=== PATIENT | female | born 1990 | race Caucasian/White ===

== ENCOUNTER 2023-03-24 07:33 | Emergency (ER) | payer OTHER, SELFPAY ==
[2023-03-24 07:39] VITALS: BP 110/82; PULSE 89; RESP 18; TEMP 36.7; O2SAT 97; BMI 29.5
--- NOTE | 2023-03-24 07:50 | ED.URI1 ---
HPI - URI/Sore Throat General Chief Complaint: Upper Respiratory Infection Time Seen by Provider: 03/24/23 07:38 Source: patient History of Present Illness HPI Narrative: 33-year-old female presents to the emergency department for an eight day history of cough. She is coughing up thick green phlegm and she lost her voice. No fever. She took a Covid test at work and it was negative. No hemoptysis or vomiting. Related Data Home Medications Medication Instructions Recorded Confirmed famotidine 20 mg tablet 20 mg PO DAILY 03/24/23 03/24/23 hydrochlorothiazide 12.5 mg tablet 12.5 mg PO Q12H 03/24/23 03/24/23 venlafaxine 75 mg capsule,extended 75 mg PO DAILY 03/24/23 03/24/23 release 24 hr zolpidem 10 mg tablet 10 mg PO DAILY 03/24/23 03/24/23 Previous Rx's Medication Instructions Recorded azithromycin 250 mg tablet See Rx Instructions PO .COMPLEX #6 03/24/23 (Zithromax Z-Iron) tabs benzonatate 100 mg capsule 100 mg PO TID PRN cough #20 caps 03/24/23 Allergies Allergy/AdvReac Type Severity Reaction Status Date / Time amoxicillin AdvReac Intermediate Verified 03/24/23 07:39 midazolam [From Versed] AdvReac Intermediate Verified 03/24/23 07:39 Review of Systems ROS Narrative A ten point review of systems is negative except as noted above. PFSH PFSH Social History Smoking status: Never smoker Exam Narrative Exam Narrative: Nurses note and vital signs reviewed and patient is not hypoxic. General: The patient appears in no apparent distress. Patient is resting comfortably on cart. her voice is hoarse. Skin: Warm, dry, no pallor noted. There is no rash noted. Head: Normocephalic, atraumatic Eye: Normal conjunctiva, no drainage Ears, Nose, Mouth, and Throat: oral mucosa is moist. Nares patent. Cardiovascular: Regular Rate and Rhythm Respiratory: Patient is in no distress, no accessory muscle use, lungs are clear to auscultation, no wheezing, rales or rhonchi Back: non-tender, no CVA tenderness bilaterally to percussion. GI: nontender Musculoskeletal: The patient has no evidence of calf tenderness, no pitting edema, symmetrical pulses noted bilaterally Neurological: A&O, normal speech Psychiatric: Cooperative Constitutional Vital Signs, click to edit/add: Last Vital Signs Temp 98.0 F 03/24/23 07:39 Pulse 89 03/24/23 07:39 Resp 18 03/24/23 07:39 BP 110/82 03/24/23 07:39 Pulse Ox 97 03/24/23 07:39 Course Vital Signs Vital signs: Vital Signs Temperature 98.0 F 03/24/23 07:39 Pulse Rate 89 03/24/23 07:39 Respiratory Rate 18 03/24/23 07:39 Blood Pressure 110/82 03/24/23 07:39 Pulse Oximetry 97 03/24/23 07:39 Temperature 98.0 F 03/24/23 07:39 Pulse Rate 89 03/24/23 07:39 Respiratory Rate 18 03/24/23 07:39 Blood Pressure 110/82 03/24/23 07:39 Pulse Oximetry 97 03/24/23 07:39 MDM - URI/Sore Throat MDM Narrative Medical decision making narrative: I do not clinically suspect pneumonia or Covid. She was offered a Covid test but had one at work and it was negative. Treatment diagnosis and follow-up were discussed with the patient. Differential Diagnosis Differential diagnosis: Likely upper respiratory infection, viral infection and other (Covid, pneumonia) Discharge Plan Discharge Chief Complaint: Upper Respiratory Infection Clinical Impression: Upper respiratory infection Patient Disposition: Home, Self-Care Time of Disposition Decision: 07:49 Condition: Good Mode of Transportation: Private Vehicle Prescriptions / Home Meds: New azithromycin [Zithromax Z-Iron] 250 mg tablet See Rx Instructions .ROUTE .COMPLEX Qty: 6 0RF Rx Instructions: For 250 mg dose pack: take 500 mg today (day 1), then 250 mg for 4 days (days 2-5) benzonatate 100 mg capsule 100 mg PO TID PRN (Reason: cough) Qty: 20 0RF No Action famotidine 20 mg tablet 20 mg PO DAILY hydrochlorothiazide 12.5 mg tablet 12.5 mg PO Q12H venlafaxine 75 mg capsule,extended release 24hr 75 mg PO DAILY zolpidem 10 mg tablet 10 mg PO DAILY Instructions: Upper Respiratory Infection (ED) Stand Alone Forms: Portal Instructions Referrals: YUDITH COULTER [Primary Care Provider] - 1 week
== END 2023-03-24 07:58 | disposition home or self-care (01) ==
PROVIDERS: Emergency Provider Emergency Medicine; PCP Nurse Practitioner
DX: J06.9 Acute upper respiratory infection, unspecified (principal); Z79.899 Other long term (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 therapy
CPT/HCPCS: 99283

== ENCOUNTER 2023-06-08 07:26 | Emergency (ER) | payer OTHER, SELFPAY ==
[2023-06-08 07:29] VITALS: BP 140/90; PULSE 104; RESP 20; TEMP 37.1; O2SAT 97
[2023-06-08 07:44] VITALS: PULSE 98; RESP 18; O2SAT 98
[2023-06-08 07:48] LABS: Internal Control Within Normal Limits; Strep A Antigen Screen Negative
--- NOTE | 2023-06-08 08:28 | ED.GENADUL1 ---
HPI - General Adult General Chief complaint: Upper Respiratory Infection Stated complaint: COUGH/ CONGESTION Time Seen by Provider: 06/08/23 08:00 History of Present Illness HPI narrative: Patient is a 33-year-old female who is presenting to the Emergency Room today with chief complaint of cough, congestion that started yesterday and today. Patient works at the [employer]. There has been COVID at the [facility]. Patient states she's been having coughing, congestion, and a clear/greenish cough since yesterday. Patient was having flulike symptoms Wednesday, felt better Wednesday and Wednesday, that was sick again yesterday. Patient did have COVID at the beginning of May. Patient did test negative for COVID a few weeks ago. Patient needs a work note as well. No nausea or vomiting. No diarrhea. No rash. Patient's having upper chest wall pain from coughing. Mild sore throat. No headache, no ear pain, no other acute complaints. . All systems are negative except as noted/marked. All systems reviewed and otherwise negative. . Nurses note and vital signs reviewed and patient is not hypoxic. General: The patient appears well and in no apparent distress. Patient is resting comfortably on cart. Patient is not toxic, lethargic, or listless Skin: Warm, dry, no pallor noted. There is no rash noted. No petechiae, purpura. Head: Normocephalic, atraumatic; No tenderness to palpation to bilateral frontal or maxillary sinuses. Eye: Normal conjunctiva, no drainage, EOMI. PERRL Ears, Nose, Mouth, and Throat: oral mucosa is moist. Nares patent. Mouth without vesicles. Patient bilateral tympanic membrane shows mild cerumen impaction bilateral, record and left. Patient is clear drainage noted to the posterior pharynx, no bilateral or unilateral swelling, no posterior pharyngeal erythema, exudate, or petechiae. Airways patent. Cardiovascular: Regular Rate and Rhythm, no murmur, gallop, rub Respiratory: Patient is in no distress, no accessory muscle use, lungs are clear to auscultation, no wheezing, rales or rhonchi Back: non-tender, no CVA tenderness bilaterally to percussion. No CT LS midline pain GI: soft, no tenderness Musculoskeletal: Patient has full range of motion of all of the extremities, no motor, sensory, or focal neurological deficits Neurological: A&O x3, normal speech Psychiatric: Cooperative Related Data Home Medications Medication Instructions Recorded Confirmed famotidine 20 mg tablet 20 mg PO DAILY 03/24/23 06/08/23 hydrochlorothiazide 12.5 mg tablet 12.5 mg PO Q12H 03/24/23 06/08/23 venlafaxine 75 mg capsule,extended 75 mg PO DAILY 03/24/23 06/08/23 release 24 hr zolpidem 10 mg tablet 10 mg PO DAILY 03/24/23 06/08/23 cetirizine 10 mg tablet 10 mg PO DAILY 06/08/23 06/08/23 cholecalciferol (vitamin D3) 125 125 mcg PO DAILY 06/08/23 06/08/23 mcg (5,000 unit) capsule pantoprazole 40 mg tablet,delayed 40 mg PO DAILY 06/08/23 06/08/23 release quetiapine 50 mg tablet 75 mg PO DAILY 06/08/23 06/08/23 Previous Rx's Medication Instructions Recorded albuterol sulfate 90 mcg/actuation 2 inh inhalation Q4H PRN shortness 06/08/23 breath activated powder of breath or wheezing #1 ea inhaler,sensor benzonatate 100 mg capsule 200 mg (2 x 100 mg) PO TID PRN 06/08/23 cough #20 caps [id number] 10 ml PO Q6H PRN cold symptoms 06/08/23 2 mg-30 mg-10 mg/5 mL oral syrup #200 mL (Bromfed DM) Allergies Allergy/AdvReac Type Severity Reaction Status Date / Time amoxicillin AdvReac Intermediate Verified 03/24/23 07:39 midazolam [From Versed] AdvReac Intermediate Verified 03/24/23 07:39 PFSH PFSH Social History Smoking status: Never smoker Exam Constitutional Vital Signs, click to edit/add: Last Vital Signs Temp 98.7 F 06/08/23 07:29 Pulse 98 H 06/08/23 07:44 Resp 18 06/08/23 07:44 BP 140/90 06/08/23 07:29 Pulse Ox 98 06/08/23 07:44 O2 Del Method Room Air 06/08/23 07:29 Course Vital Signs Vital signs: Vital Signs Temperature 98.7 F 06/08/23 07:29 Pulse Rate 104 H 06/08/23 07:29 Respiratory Rate 20 06/08/23 07:29 Blood Pressure 140/90 06/08/23 07:29 Pulse Oximetry 97 06/08/23 07:29 Oxygen Delivery Method Room Air 06/08/23 07:29 Temperature 98.7 F 06/08/23 07:29 Pulse Rate 98 H 06/08/23 07:44 Respiratory Rate 18 06/08/23 07:44 Blood Pressure 140/90 06/08/23 07:29 Pulse Oximetry 98 06/08/23 07:44 Oxygen Delivery Method Room Air 06/08/23 07:29 Medical Decision Making MDM Narrative Medical decision making narrative: Patient's rapid strep is negative. Patient was educated on continuing to do DayQuil [id number] along with adding Flonase, NyQuil, Tylenol, Motrin, Mucinex DM. Patient will follow-up with PCP. No questions at discharge. Lab Data Labs: Lab Results 06/08/23 Range/Units 07:33 Streptococcus Screen Negative Discharge Plan Discharge Chief Complaint: Upper Respiratory Infection Clinical Impression: Upper respiratory infection, Pharyngitis, Bronchitis Patient Disposition: Home, Self-Care Condition: Fair Prescriptions / Home Meds: New benzonatate 100 mg capsule 200 mg PO TID PRN (Reason: cough) Qty: 20 0RF [id number] [Bromfed DM] 2-30-10 mg/5 mL syrup 10 ml PO Q6H PRN (Reason: cold symptoms) Qty: 200 0RF albuterol sulfate 90 mcg/actuation aero powdr breath act w/sensor 2 inh inhalation Q4H PRN (Reason: shortness of breath or wheezing) Qty: 1 0RF No Action famotidine 20 mg tablet 20 mg PO DAILY hydrochlorothiazide 12.5 mg tablet 12.5 mg PO Q12H venlafaxine 75 mg capsule,extended release 24hr 75 mg PO DAILY zolpidem 10 mg tablet 10 mg PO DAILY cetirizine 10 mg tablet 10 mg PO DAILY cholecalciferol (vitamin D3) 125 mcg (5,000 unit) capsule 125 mcg PO DAILY pantoprazole 40 mg tablet,delayed release (DR/EC) 40 mg PO DAILY quetiapine 50 mg tablet 75 mg PO DAILY Instructions: Pharyngitis (ED), Upper Respiratory Infection (ED), Acute Bronchitis (ED) Additional Instructions: Continue using DayQuil daily.\ Start using NyQuil and Flonase as discussed. Alternate Tylenol and Motrin every 4 hours for chest wall pain, joint pain, muscle pain. Use cough medicattion as needed that is prescribed. Use inhaler every 4 hours to help with cough, congestion, and if you are coughing more productive sputum that is getting, the inhaler is working. Stand Alone Forms: Work/School Release, Portal Instructions Referrals: YUDITH COULTER [Primary Care Provider] - 1 week
== END 2023-06-08 08:31 | disposition home or self-care (01) ==
PROVIDERS: Emergency Provider Emergency Medicine; PCP Nurse Practitioner
DX: J40 Bronchitis, not specified as acute or chronic (principal); J02.9 Acute pharyngitis, unspecified; J06.9 Acute upper respiratory infection, unspecified; Z86.16 Personal history of COVID-19; Z79.899 Other long term (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 therapy
CPT/HCPCS: 87070; 87880; 99283

== ENCOUNTER 2023-10-06 09:35 | Emergency (ER) | payer OTHER, SELFPAY ==
[2023-10-06 09:38] VITALS: BP 134/97; PULSE 107; TEMP 36.9; O2SAT 94
--- OUTSIDE RECORDS SUMMARY | 2023-10-06 09:51 | XMS_ITS | CCD ---
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 Name Role Phone YFN, YUDITH Primary Care Unavailable CHARLES, HANK Admitting Unavailable CHARLES, HANK Attending Unavailable TANIA AUGUSTE Consulting Unavailable CHARLES, HANK Consulting Unavailable TOLBERT, YUDITH Primary Care Unavailable CHARLES, HANK Admitting Unavailable CHARLES, HANK Attending Unavailable EMANUEL, DR NOLVIA Preston Consulting Unavailable CLIFTON, KAITLYNN RUBIO Consulting Unavailable VICKY DURBIN Consulting Unavailable TOLBERT, YUDITH Primary Care Unavailable MARKER, DR TAVARES Admitting Unavailable MARKER, DR TAVARES Attending Unavailable JOSH, DR AGUIRRE Consulting Unavailable TOLBERT, YUDITH Admitting Unavailable TOLBERT, YUDITH Attending Unavailable TOLBERT, YUDITH Primary Care Unavailable TOLBERT, YUDITH Consulting Unavailable TOLBERT, YUDITH Admitting Unavailable TOLBERT, YUDITH Attending Unavailable TOLBERT, YUDITH Primary Care Unavailable TOLBERT, YUDITH Consulting Unavailable TOLBERT, YUDITH Primary Care Unavailable Ernestina Berger Attending Unavailable Tolbert JET SKI MECHANIC-ROPEMAN, Yudith J Primary Care Provid er YUDITH TOLBERT Attending Unavailable TOLBERT, YUDITH J Referring Unavailable TOLBERT, YUDITH J Primary Care Unavailable TOLBERT, YUDITH J Attending Unavailable TOLBERT, YUDITH J Referring Unavailable TOLBERT, YUDITH J Primary Care Unavailable PEYMAN ROBERTS Attending Unavailable TOLBERTTIFFANYYUDITH Raheel Referring Unavailable TOLBERT, YUDITH J Primary Care Unavailable PEYMAN ROBERTS Referring Unavailable TOLBERT, YUDITH J Primary Care Unavailable Allergies Allergy Classification Reported Allergen(s) Allergy Type Date of Onset Reaction(s) Facility (4 sources) Amoxicillin; Translations: [amoxicillin] Drug Allergy 4 The [facility] (2 sources) Midazolam; Translations: [Versed] Drug Allergy 7 The [facility] (1 source) Amoxicillin Drug Allergy 7 [facility] ([facility] Midazolam; Translations: [MIDAZOLAM] Drug Allergy 9 Other (See Comments), Nausea And Vomiting [facility] Medications Current Medications Medication Drug Class(es) Dates Sig (Normalized) Sig (Original) acyclovir 0.05 mg/mg topical ointment (1 source) Herpesvirus Nucleoside Analog DNA Polymerase Inhibitor, Herpes Simplex Virus Nucleoside Analog DNA Polymerase Inhibitor, Herpes Zoster Virus Nucleoside Analog DNA Polymerase Inhibitor Start: 04-11-20 19 acyclovir (ZOVIRAX) 5 % ointment Indications: Cold sore Apply 1 application topically 4 (four) times a day as needed (kaur sore). 5 g 0 04/11/2019 Active [id number] actuat albuterol 0.09 mg/actuat metered dose inhaler (1 source) beta2-Adrenergic Agonist Start: 06-08-19 24 take 2 puff(s) by inhalation every four hours as needed albuterol (PROVENTIL HFA;VENTOLIN HFA) 90 mcg/actuation inhaler INHALE 2 PUFFS EVERY 4 HOURS NEEDED FOR SHORTNESS OF BREATH OR FOR WHEEZE 0 06/08/2023 Active calcium carbonate 675 mg / magnesium hydroxide 135 mg / simethicone 60 mg chewable tablet (1 source) Start: 02-20-20 21 calcium carb-mag hydrox-simeth 675-135-60 mg tablet,chewable Indications: Hiatal hernia , GERD without esophagitis Chew 1 tablet and swallow every 6 (six) hours as needed (Indigestion). 30 each 3 02/19/2021 Active chlorhexidine gluconate 1.2 mg/ml mouthwash (1 source) Start: 09-24-19 22 take 15 mL by mouth in the morning chlorhexidine (PERIDEX) 0.12 % solution Indications: Gingivitis Apply 15 mL to the mouth or throat in the morning and 15 mL before bedtime. 120 mL 6 09/23/2021 Active cholecalciferol 0.125 mg oral capsule (1 source) Vitamin D Start: 06-01-20 23 take 1 capsule by mouth once in the morning cholecalciferol, vitamin D3, (VITAMIN D3) 5,000 units capsule Indications: Vitamin D deficiency Take 1 capsule (5,000 Units total) by mouth in the morning. 30 capsule 6 06/01/2023 Active diphenhydrAMINE hydrochloride 25 mg oral capsule (1 source) Histamine-1 Receptor Antagonist Start: 09-11-19 20 take 1 capsule by mouth three times daily as needed Allergy, diphenhydrAMINE, 25 mg capsule Indications: Seasonal allergic rhinitis due to pollen Take 1 capsule (25 mg total) by mouth 3 (three) times a day as needed for allergies. 90 capsule 2 09/11/2019 Active famotidine 20 mg oral tablet (2 sources) Histamine-2 Receptor Antagonist Start: 06-01-20 23 End: 09-09-19 24 take 1 tablet by mouth in the morning, then take 1 tablet by mouth at bedtime famotidine (PEPCID) 20 mg tablet Indications: Hiatal hernia Take 1 tablet (20 mg total) by mouth in the morning and 1 tablet (20 mg total) before bedtime. 60 tablet 5 09/09/2023 Active fexofenadine hydrochloride 180 mg oral tablet (1 source) Histamine-1 Receptor Antagonist Start: 09-09-19 take 1 tablet by mouth in the morning fexofenadine (ASIA ALLERGY) 180 mg tablet Indications: Seasonal allergic rhinitis due to pollen Take 1 tablet (180 mg total) by mouth in the morning. 30 tablet 3 09/09/2023 Active fluticasone propionate 0.05 mg/actuat metered dose nasal spray (1 source) Corticosteroid Start: 09-09-19 take 2 spray(s) nasal route in the morning fluticasone propionate (FLONASE) 50 mcg/actuation nasal spray Indications: Seasonal allergic rhinitis due to pollen Administer 2 sprays into each nostril in the morning. 16 g 3 09/09/2023 Active hydroCHLOROthiazide 12.5 mg oral tablet (1 source) Thiazide Diuretic Start: 06-01-20 23 take 1 tablet by mouth once daily as needed hydroCHLOROthiazide (HYDRODIURIL) 12.5 mg tablet Indications: Localized swelling of both lower legs TAKE 1 TABLET BY MOUTH EVERYDAY NEEDED FOR LEG SWELLING 30 tablet 5 06/01/2023 Active LORazepam 1 mg oral tablet (2 sources) Benzodiazepine Start: 06-01-20 23 End: 09-09-19 24 take 1 tablet by mouth twice daily as needed for anxiety LORazepam (ATIVAN) 1 mg tablet Indications: Generalized anxiety disorder with panic attacks TAKE 1 TABLET BY MOUTH TWICE A DAY NEEDED FOR ANXIETY 30 tablet 2 09/09/2023 Active pantoprazole 40 mg delayed release oral tablet (2 sources) Proton Pump Inhibitor Start: 06-01-20 End: 09-09-19 take 1 tablet by mouth once daily before breakfast pantoprazole (PROTONIX) 40 mg EC tablet Indications: Hiatal hernia TAKE 1 TABLET BY MOUTH EVERY DAY IN THE MORNING BEFORE BREAKFAST 30 tablet 5 09/09/2023 Active QUEtiapine 25 mg oral tablet (4 sources) Atypical Antipsychotic Start: 06-01-20 End: 09-09-19 take 1 tablet by mouth once daily QUEtiapine (SeroqueL) 25 mg tablet Indications: Generalized anxiety disorder with panic attacks Take 1 tablet (25 mg total) by mouth nightly. Take with 50 mg tab ( total 75mg) 30 tablet 5 09/09/2023 Active Start: 06-01-2023 End: 09-09-2023 take 1 tablet by mouth once daily QUEtiapine (SeroqueL) 50 mg tablet Indications: Generalized anxiety disorder with panic attacks Take 1 tablet (50 mg total) by mouth nightly. To be taken with 25 mg nightly 30 tablet 5 09/09/2023 Active 24 hr venlafaxine 150 mg extended release oral capsule (2 sources) Serotonin and Norepinephrine Reuptake Inhibitor Start: 09-09-2023 take 1 capsule by mouth every twenty-four hours in the morning venlafaxine XR (EFFEXOR-XR) 150 mg 24 hr capsule Indications: Major depression single episode, in partial remission (CMS-HCC) Take 1 capsule (150 mg total) by mouth in the morning. TAKE 1 CAPSULE (75 MG TOTAL) BY MOUTH IN THE MORNING. 30 capsule 3 09/09/2023 Active Start: 06-01-2023 End: 09-09-2023 take 1 capsule by mouth every twenty-four hours in the morning, then take 1 capsule by mouth in the morning venlafaxine XR (EFFEXOR XR) 75 mg 24 hr capsule Indications: Depression, major, in remission (CMS-HCC) Take 1 capsule (75 mg total) by mouth in the morning. TAKE 1 CAPSULE (75 MG TOTAL) BY MOUTH IN THE MORNING. 30 capsule 5 06/01/2023 09/09/2023 Discontinued (Reorder) zolpidem tartrate 10 mg oral tablet (2 sources) gamma-Aminobutyric Acid-ergic Agonist Start: 06-01-2023 End: 09-09-2023 take 1 tablet by mouth once daily as needed for sleep zolpidem (AMBIEN) 10 mg tablet Indications: Psychophysiological insomnia Take 1 tablet (10 mg total) by mouth nightly as needed for sleep. 30 tablet 2 09/09/2023 Active Completed/Discontinued Medications Medication Drug Class(es) Dates Sig (Normalized) Sig (Original) azelastine hydrochloride 0.137 mg/actuat metered dose nasal spray (1 source) Histamine-1 Receptor Antagonist Start: 07-13-2022 End: 09-09-2023 take 2 spray(s) nasal route in the morning azelastine (ASTELIN) 137 mcg (0.1 %) nasal spray Indications: Seasonal allergic rhinitis due to pollen ADMINISTER 2 SPRAYS INTO EACH NOSTRIL IN THE MORNING AND 2 SPRAYS BEFORE BEDTIME. 30 mL 11 07/13/2022 09/09/2023 Discontinued (Therapy completed) cetirizine hydrochloride 10 mg oral tablet (1 source) Histamine-1 Receptor Antagonist Start: 06-01-2023 End: 09-09-2023 take 1 tablet by mouth once daily in the morning cetirizine (ZyrTEC) 10 mg tablet Indications: Seasonal allergic rhinitis due to pollen TAKE 1 TABLET BY MOUTH EVERY DAY IN THE MORNING 30 tablet 6 06/01/2023 09/09/2023 Discontinued (Therapy completed) dicyclomine hydrochloride 10 mg oral capsule (1 source) Anticholinergic Start: 04-16-2021 End: 09-09-2023 dicyclomine (BENTYL) 10 mg capsule Take 1 capsule (10 mg total) by mouth in the morning and 1 capsule (10 mg total) at noon and 1 capsule (10 mg total) in the evening and 1 capsule (10 mg total) before bedtime. 0 04/16/2021 09/09/2023 Discontinued (Therapy completed) Problems Active Problems Problem Classification Problem Date Documented Date Episodic/Chronic Anxiety disorders (4 sources) Generalized anxiety disorder; Translations: [Generalized anxiety disorder] Onset: 01-27-2017 09-09-2023 Chronic Disorders of teeth and jaw (1 source) Gingivitis; Translations: [Chronic gingivitis, plaque induced] Onset: 06-29-2018 06-29-2018 Chronic Endometriosis (1 source) Endometriosis (clinical); Translations: [Endometriosis, unspecified] Onset: 01-27-2017 01-27-2017 Chronic Esophageal disorders (2 sources) Gastroesophageal reflux disease without esophagitis; Translations: [Gastro-esophageal reflux disease without esophagitis] Onset: 03-02-2019 03-02-2019 Chronic Gastritis and duodenitis (1 source) Chronic gastritis; Translations: [Unspecified chronic gastritis without bleeding] Onset: 04-21-2022 04-21-2022 Chronic Hepatitis (1 source) Nonalcoholic steatohepatitis (PENALOZA); Translations: [NONALCOHOLIC STEATOHEPATITIS] Onset: 04-13-2022 Chronic Miscellaneous mental health disorders (3 sources) Psychophysiologic insomnia; Translations: [Psychophysiologic insomnia] Onset: 03-27-2018 09-09-2023 Chronic Mood disorders (2 sources) Major depression single episode, in partial remission; Translations: [Major depressive disorder, single episode, in partial remission] Onset: 06-01-2023 09-09-2023 Chronic Nausea and vomiting (1 source) Nausea with vomiting, unspecified; Translations: [NAUSEA WITH VOMITING UNSPECIFIED] Onset: 04-13-2022 Episodic Nutritional deficiencies (1 source) Vitamin D deficiency, unspecified; Translations: [Vitamin D deficiency, unspecified] Onset: 06-01-2023 Chronic Other aftercare (1 source) Other termite inspector (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 therapy; Translations: [OTH FPC CURRENT DRUG THERAPY] Onset: 04-13-2022 Episodic Other aftercare (1 source) Drug therapy finding; Translations: [termite inspector (current) use of opiate analgesic] 09-09-2023 Episodic Other hereditary and degenerative nervous system conditions (1 source) Restless legs; Translations: [Restless legs syndrome] Onset: 04-11-2019 04-11-2019 Chronic Other non-traumatic joint disorders (2 sources) Pain in right knee; Translations: [Pain in right knee] Onset: 09-22-2023 Episodic Other non-traumatic joint disorders (1 source) Knee pain Onset: 09-22-2023 Episodic Other upper respiratory disease (2 sources) Allergic rhinitis due to pollen; Translations: [Allergic rhinitis due to pollen] Onset: 03-02-2019 09-09-2023 Chronic Other upper respiratory disease (1 source) Allergic rhinitis due to pollen; Translations: [Allergic rhinitis due to pollen] Onset: 03-02-2019 Chronic Other upper respiratory infections (9 sources) Acute pharyngitis, unspecified; Translations: [Acute upper respiratory infection, unspecified] Onset: 05-21-2021 Episodic Residual codes; unclassified (1 source) Acquired absence of other specified parts of digestive tract; Translations: [ACQ ABSENCE OTH PART DIGESTV TRACT] Onset: 04-13-2022 Episodic Residual codes; unclassified (1 source) Acquired absence of both cervix and uterus; Translations: [ACQUIRED ABSENCE BOTH CERVIX AND UTERUS] Onset: 04-13-2022 Episodic Unclassified (3 sources) CONTACT W/AND (SUSP) EXPOS COVID-19; Translations: [CONTACT W/AND (SUSP) EXPOS COVID-19] Onset: 06-27-2021 Unclassified (1 source) Annual Exam Onset: 06-01-2023 Viral infection (1 source) Viral infection, unspecified; Translations: [VIRAL INFECTION UNSPECIFIED] Onset: 04-13-2022 Episodic Viral infection (1 source) COVID-19; Translations: [COVID-19] Onset: 06-27-2021 Past or Other Problems Problem Classification Problem Date Documented Da te Episodic/Chronic Abdominal hernia (2 sources) Hiatal hernia; Translations: [Diaphragmatic hernia without obstruction or gangrene] Onset: 06-01-2023 09-09-2023 Episodic Administrative/social admission (1 source) Encounter for other administrative examinations; Translations: [ENCOUNTER OTH ADMIN EXAMINATIONS] Onset: 12-16-2021 Episodic Chronic obstructive pulmonary disease and bronchiectasis (1 source) Bronchitis, not specified as acute or chronic; Translations: [BRONCHITIS NOT SPEC ACUTE/CHRON] Onset: 05-22-2021 Episodic E Codes: Natural/environment (1 source) Overexertion from strenuous movement or load, initial encounter; Translations: [OVEREXERT STRENUOUS MVMT/LOAD INIT] Onset: 05-06-2021 Episodic Esophageal disorders (1 source) Lesion of esophagus; Translations: [Disease of esophagus, unspecified] Onset: 04-21-2022 04-21-2022 Episodic Mood disorders (1 source) Mood disorders Onset: 09-09-2023 09-09-2023 Nonspecific chest pain (3 sources) Chest pain, unspecified; Translations: [CHEST PAIN UNSPECIFIED] Onset: 05-03-2021 Episodic Other aftercare (1 source) longterm (current) use of opiate analgesic; Translations: [termite inspector (current) use of opiate analgesic] Onset: 06-01-2023 Episodic Other bone disease and musculoskeletal deformities (1 source) Costal chondritis; Translations: [Chondrocostal junction syndrome [Tietze]] Onset: 11-06-2018 10-17-2019 Episodic Other connective tissue disease (1 source) Spasm of cervical paraspinous muscle; Translations: [Other muscle spasm] Onset: 03-02-2019 03-02-2019 Episodic Other diseases of veins and lymphatics (1 source) Venous insufficiency of leg; Translations: [Venous insufficiency (chronic) (peripheral)] Onset: 03-01-2019 03-01-2019 Episodic Other gastrointestinal disorders (1 source) Dysphagia; Translations: [Dysphagia, unspecified] Onset: 04-21-2022 04-21-2022 Episodic Other liver diseases (1 source) Liver enzymes abnormal; Translations: [Abnormal levels of other serum enzymes] Onset: 08-01-2018 08-01-2018 Episodic Other screening for suspected conditions (not mental disorders or infectious disease) (2 sources) Protein level - finding; Translations: [Other specified abnormal findings of blood chemistry] Onset: 08-03-2018 08-03-2018 Episodic Other skin disorders (1 source) Localized swelling, mass and lump, lower limb, bilateral; Translations: [Localized swelling, mass and lump, lower limb, bilateral] Onset: 06-01-2023 Episodic Sprains and strains (1 source) Strain of muscle and tendon of front wall of thorax, initial encounter; Translations: [STRN MSC TENDON FRNT WALL THOR INIT] Onset: 05-06-2021 Episodic Substance-related disorders (1 source) Narcotic drug user; Translations: [Opioid use, unspecified, uncomplicated] Onset: 12-12-2019 12-12-2019 Episodic Unclassified (1 source) CONTACT W/AND (SUSP) EXPOS COVID-19; Translations: [CONTACT W/AND (SUSP) EXPOS COVID-19] Onset: 06-25-2021 Unclassified (1 source) Onset: 09-09-2023 09-09-2023 Results Test Name Value Interpretation Reference Range Facility Drug Screen, Urineon 024 Amphetamines Screen method >1000 ng/mL Ql (U) Negative Negative^N [facility] Comment on above: AMPH/METH screening cut off = 1000 ng/mL Barbiturates Screen Ql (U) Negative N ative^N [facility] Comment on above: Barbiturates screeni ng cut off value = 200 ng/mL Benzodiazepines Ql (U) Negative Negat ami^N [facility] Comment on above: Benzodiazepines scre ening cut off value = 200 ng/mL Cocaine Ql (U) Negative Negative^N [facility] Comment on above: Cocaine screening cu t off value = 300 ng/mL Methadone Screen Ql (U) Negative Nega tive^N [facility] Comment on above: Methadone screening cut off value = 300 ng/mL. Methylenedioxymethamphetamin e Screen Ql (U) Negative Negative^N [facility] Comment on above: Ecstasy screening cu t off value = 500 ng/mL This report is intended for use in clinical monitoring or management of patients. Opiates Screen Ql (U) Negative Negati ve^N [facility] Comment on above: Opiates screening cu t off value = 300 ng/mL NOTE: This test is used for the detection of codeine, hydrocodone (>1000 ng/mL), morphine and hydromorphone (>900 ng/mL) in urine. oxyCODONE Ql (U) Negative Negative^N [facility] Comment on above: Oxycodone screening cut off value = 300 ng/mL NOTE: This test is used for the detection of oxycodone and oxymorphone in urine. Phencyclidine Screen method >25 ng/mL Ql (U) Negative Negative^N [facility] Comment on above: Phencyclidine screen ing cut off value = 25 ng/mL Tetrahydrocannabinol Screen method >50 ng/mL Ql (U) Negative Negative^N [facility] Comment on above: Cannabinoids/THC scr eening cut off value = 50 ng/mL [facility] AMYLASEon 04-09-2022 Amylase [Catalytic activity/Vol] 47 U/L Normal 25-115 [facility] Comment on above: Performed By: #### L YENNY, JOANNE, CMP #### [facility] [address] [address] [address] Royal Alcala CBC AUTO DIFFon 04-09-2022 BASO # 0.1 103/ul Normal 0.0-0.1 [facility] Comment on above: Performed By: #### C BC ####[facility] [address] [address]DrJem Alcala Basophils/100 WBC (Bld) 0.9 % Normal 0.2-2.0 [facility] Comment on above: Performed By: #### C BC ####[facility] [address] [address]DrJem Alcala EO # 0.1 103/ul Normal 0.0-0.7 [facility] Comment on above: Performed By: #### C BC ####[facility] [address] [address]DrJem Alcala Eosinophils/100 WBC (Bld) 2.1 % Normal 0.9-7.0 [facility] Comment on above: Performed By: #### C BC ####[facility] [address] [address]DrJem Alcala Erythrocyte distribution wid th (RBC) [Ratio] 12.9 % Normal 11.0-15.0 [facility] Comment on above: Performed By: #### C BC ####[facility] [address] [address]DrJem Alcala Hematocrit (Bld) [Volume fraction] 37.5 % Normal 36.0-48.0 [facility] Comment on above: Performed By: #### C BC ####[facility] [address] [address]DrJem Alcala Hemoglobin (Bld) [Mass/Vol] 12.8 g/dL Normal 12.0-16. 0 [facility] Comment on above: Performed By: #### C BC ####[facility] [address] [id number]. Royal Alcala IG # 0.01 10e3/ul Normal 0.00-0.03 [facility] Comment on above: Performed By: #### C BC ####[facility] [address] [address]Dr. Royal Alcala IG % 0.2 % Normal 0.0-0.5 [facility] Comment on above: Performed By: #### C BC ####[facility] [address] [address]Dr. Royal Fredrick LYMPH # 2.2 103/ul Normal 1.2-3.8 [facility] Comment on above: Performed By: #### C BC ####[facility] [address] [address]Dr. Royal Alcala Lymphocytes/100 WBC (Bld) 38.3 % Normal 20.5-60.0 [facility] Comment on above: Performed By: #### C BC ####[facility] [address] [address]Dr. Pattiebony Alcala MANUAL DIFF REQ NO Normal [facility] Comment on above: Performed By: #### C BC ####[facility] [address] [address]Dr. Royal Alcala MCH (RBC) [Entitic mass] 29.9 pg Normal 26.7-34.0 [facility] Comment on above: Performed By: #### C BC ####[facility] [address] [address]Dr. Royal Alcala MCHC (RBC) [Mass/Vol] 34.1 g/dL Normal 29.9-35.2 [facility] Comment on above: Performed By: #### C BC ####[facility] [address] [address]Dr. Royal Fredrick MCV (RBC) [Entitic vol] 87.6 fL Normal 81.0-99.0 [facility] Comment on above: Performed By: #### C BC ####[facility] [address] [id number]. Royal Alcala MONO # 0.3 103/ul Normal 0.3-0.8 [facility] Comment on above: Performed By: #### C BC ####[facility] [address] [address]Dr. Royal Alcala Monocytes/100 WBC (Bld) 6.0 % Normal 1.7-12.0 [facility] Comment on above: Performed By: #### C BC ####[facility] [address] [address]Dr. Royal Alcala NEUT # 3.0 103/ul Normal 1.4-6.5 [facility] Comment on above: Performed By: #### C BC ####[facility] [address] [place], [place] [address]Dr. Royal Alcala Neutrophils/100 WBC (Bld) 52.5 % Normal 43.0-75.0 [facility] Comment on above: Performed By: #### C BC ####[facility] [address] [place], [place] [address]Dr. Royal Alcala Platelet mean volume (Bld) [Entitic vol] 9.4 fL Critically low 9.5-13.5 [facility] Comment on above: Performed By: #### C BC ####[facility] [address] [address]Dr. Royal Alcala PLT 209 103/ul Normal 150-450 [facility] Comment on above: Performed By: #### C BC ####[facility] [address] [place], [place] [address]Dr. Royal Alcala RBC 4.28 106/ul Normal 4.20-5.40 [facility] Comment on above: Performed By: #### C BC ####[facility] [address] [place], [place] [id number]. Royal Alcala WBC 5.7 103/ul Normal 4.0-11.0 [facility] Comment on above: Performed By: #### C BC ####[facility] [address] [place], [place] [address]Dr. Royal Alcala Covid-19 PCR (CVDTB)on SARS-CoV-2 (COVID-19) RNA VAISHALI+probe Ql (Unsp spec) Not detected Normal NOT DETECTED [facility] Comment on above: Result Comment: When diagnostic testing is negative, the possibility of a false negative should be considered in the context of a patient's recent exposures and the presence of clinical signs and symptoms consistent with SARS-CoV-2. This test is not yet approved or cleared by the [place] FDA. When there are no FDA-approved or cleared tests available, and other criteria are met, FDA can make tests available under an emergency access mechanism called an Emergency Use Authorization (EUA). The EUA for this test is supported by the [place] of Health and Human Service's declaration that circumstances exist to justify the emergency use of in vitro diagnostics for the detection and/or diagnosis of the virus that causes COVID-19. This EUA will remain in effect for the duration of the COVID-19 declaration justifying emergency of IVDs, unless it is terminated or revoked by the FDA (after which the test may no longer be used). Performed By: #### C VDTBH ####[facility] [address] [place] [address]. Royal Alcala GROUP A STREP CULTUREon S. pyogenes Ag Ql (Unsp spec) Culture Observations: Negative for Group A Streptococcus Normal [facility] Comment on above: Performed By: #### G RASTCX, SSCRN ####[facility] [address] [place], [place] [address]Dr. Royal Alcala INFLUENZA A AND B AGon 04-09 INFLUANEGH SEE BELOW Normal The [facility] Comment on above: Result Comment: Nega tive for Flu A protein angiten. Infection due to Flu A cannot be ruled out. Flu A angiten in the sample may be below the detection limit of the test. Performed By: #### I NFLUAB ####[facility] [address] [place] [address] INFLUBNEGH SEE BELOW Normal [facility] Comment on above: Result Comment: Nega tive for Flu B protein antigen. Infection due to Flu B cannot be ruled out. Flu B antigen in the sample may be below the detection limit of the test. Performed By: #### I NFLUAB ####[facility] [address] [place] [address]DrJem Alcala INFLUENZA A AG Negative Normal NEGATIVE SEE COMMENT [facility] Comment on above: Performed By: #### I NFLUAB ####[facility] [address] [place] [address]Dr. Royal Alcala INFLUENZA B AG Negative Normal NEGATIVE SEE COMMENT [facility] Comment on above: Performed By: #### I NFLUAB ####[facility] [address] [place] [address]Dr. Royal Alcala INTERNAL CONTROLS Within Normal Limits Normal Within Normal Limits [facility] Comment on above: Performed By: #### I NFLUAB ####[facility] [address] [place] [address]DrJem Alcala LIPASEon 04-09-2022 Lipase [Catalytic activity/Vol] 113.0 U/L Normal 73.0 -393.0 [facility] Comment on above: Performed By: #### L JOANNE RAMON, CMP #### [facility] [address] [place] [address] Dr. Royal Aclala PROF 14(COMP METB)on 022 Albumin [Mass/Vol] 4.3 g/dL Normal 3.4-5.0 [facility] Comment on above: Performed By: #### L JOANNE RAMON, CMP #### [facility] [address] [place] [address] Dr. Royal Alcala Albumin/Globulin [Mass ratio] 1.1 {ratio} Normal [facility] Comment on above: Performed By: #### L JOANNE RAMON, CMP #### [facility] [address] [place] [address] Dr. Royal Alcala ALP [Catalytic activity/Vol] 91 U/L Normal 46-116 [facility] Comment on above: Performed By: #### L JOANNE RAMON, CMP #### [facility] [address] [place] [address] Dr. Royal Alcala ALT [Catalytic activity/Vol] 57 U/L Normal 14-59 [facility] Comment on above: Performed By: #### L JOANNE RAMON, CMP #### [facility] [address] [place] [address] Dr. Royal Alcala Anion gap [Moles/Vol] 12.5 mmol/L Normal Th e [facility] Comment on above: Performed By: #### L JOANNE RAMON, CMP #### [facility] [address] [place] [address] Dr. Royal Alcala AST [Catalytic activity/Vol] 34 U/L Normal 15-37 [facility] Comment on above: Performed By: #### L JOANNE RAMON, CMP #### [facility] [address] [place] [address] Dr. Royal Alcala Bilirubin [Mass/Vol] 0.3 mg/dL Normal 0.2-1.0 [facility] Comment on above: Performed By: #### L JOANNE RAMON, CMP #### [facility] [address] [place] [address] Dr. Royal Alcala Calcium [Mass/Vol] 9.0 mg/dL Normal 8.5-10.1 [facility] Comment on above: Performed By: #### L JOANNE RAMON, CMP #### [facility] [address] [place] [address] Dr. Royal Alcala Chloride [Moles/Vol] 104 mmol/L Normal 98-107 [facility] Comment on above: Performed By: #### L JOANNE RAMON, CMP #### [facility] [address] [place] [address] Dr. Royal Alcala CO2 [Moles/Vol] 25.1 mmol/L Normal 21.0-32.0 [facility] Comment on above: Performed By: #### L JOANNE RAMON, CMP #### [facility] [address] [place] [address] Dr. Royal Alcala Creatinine [Mass/Vol] 0.70 mg/dL Normal 0.55-1.02 [facility] Comment on above: Performed By: #### L JOANNE RAMON, CMP #### [facility] [address] [place] [address] [address] Royal Alcala EGFR-AF INDONESIAN >60 Normal >=60 [facility] Comment on above: Performed By: #### L JOANNE RAMON, CMP #### [facility] [address] [place] [address] [address] Royal Alcala EGFR-NON AF INDONESIAN >60 Normal >=60 [facility] Comment on above: Performed By: #### L JOANNE RAMON, CMP #### [facility] [address] [place] [address] [address] Royal Alcala Globulin (S) [Mass/Vol] 3.9 g/dL Normal T [facility] Comment on above: Performed By: #### L JOANNE RAMON, CMP #### [facility] [address] [place] [address] [address] Royal Alcala Glucose [Mass/Vol] 103 mg/dL Normal 74-106 [facility] Comment on above: Performed By: #### L JOANNE RAMON, CMP #### [facility] [address] [place] [address] [address] Royal Alcala Potassium [Moles/Vol] 3.6 mmol/L Normal 3.5-5.1 [facility] Comment on above: Performed By: #### L JOANNE RAMON, CMP #### [facility] [address] [place] [address] [address] Royal Alcala Protein [Mass/Vol] 8.2 g/dL Normal 6.4-8.2 [facility] Comment on above: Performed By: #### L JOANNE RAMON, CMP #### [facility] [address] [place] [address] [address] Royal Alcala Sodium [Moles/Vol] 138 mmol/L Normal 136-145 [facility] Comment on above: Performed By: #### L OJANNE RAMON, CMP #### [facility] [address] [place] [address] [address] Royal Alcala Urea nitrogen [Mass/Vol] 11.0 mg/dL Normal 7.0-18.0 [facility] Comment on above: Performed By: #### L JOANNE RAMON, CMP #### [facility] [address] [place], [place] [address] Dr. Royal Alcala Urea nitrogen/Creatinine [Ma ss ratio] 15.7 mg/mg Normal [facility] Comment on above: Performed By: #### L JOANNE RAMON, CMP #### [facility] [address] [place], [place] [address] Dr. Royal Alcala STREPT SCREENon 04-09-2022 STREP SCREEN A Negative Normal NEGATIVE [facility] Comment on above: Performed By: #### G RASTCX, SSCRN ####[facility] [address] [place], [place] [address]GmDr. Royal Alcala COMPLIANCE DRUG SCREENon PDF . Normal [facility] Comment on above: Performed By: #### D SDOALC ####[facility] [address] [place], [place] [address]TvJem Alcala Summary FINAL Normal [facility] Comment on above: Result Comment: TOXASSURE COMP DRUG ANALYSIS,UR Test Result Flag Units Drug Present and Declared for Prescription Verification Lorazepam >573 EXPECTED ng/mg creat Source of lorazepam is a scheduled prescription medication. Zolpidem PRESENT EXPECTED Zolpidem Acid PRESENT EXPECTED Zolpidem acid is an expected metabolite of zolpidem. Test Result Flag Units Ref Range Creatinine 349 mg/dL >=20 Declared Medications: The flagging and interpretation on this report are based on the following declared medications. Unexpected results may arise from inaccuracies in the declared medications. Note: The testing scope of this panel includes these medications: Lorazepam (Ativan) Note: The testing scope of this panel does not include small to moderate amounts of these reported medications: Zolpidem (Ambien) Note: The testing scope of this panel does not include following reported medications: Indeterminate drug For clinical consultation, please call . Performed By: #### D SDOALC ####[facility] [address] [place] [address]Dr. Royal Alcala CBC AUTO DIFFon 12-11-2021 BASO # 0.0 103/ul Normal 0.0-0.1 [facility] Comment on above: Performed By: #### C BC ####[facility] [address] [place] [address]Dr. Royal Alcala Basophils/100 WBC (Bld) 0.7 % Normal 0.2-2.0 [facility] Comment on above: Performed By: #### C BC ####[facility] [address] [place] [address]Dr. Royal Alcala EO # 0.1 103/ul Normal 0.0-0.7 [facility] Comment on above: Performed By: #### C BC ####[facility] [address] [place] [address]Dr. Royal Alcala Eosinophils/100 WBC (Bld) 1.2 % Normal 0.9-7.0 [facility] Comment on above: Performed By: #### C BC ####[facility] [address] [place] [address]Dr. Royal Alcala Erythrocyte distribution wid th (RBC) [Ratio] 12.7 % Normal 11.0-15.0 [facility] Comment on above: Performed By: #### C BC ####[facility] [address] [place] [address]Dr. Royal Alcala Hematocrit (Bld) [Volume fraction] 41.9 % Normal 36.0-48.0 [facility] Comment on above: Performed By: #### C BC ####[facility] [address] [place] [address]Dr. Royal Alcala Hemoglobin (Bld) [Mass/Vol] 14.0 g/dL Normal 12.0-16. 0 [facility] Comment on above: Performed By: #### C BC ####[facility] [address] [place] [address]Dr. Royal Fredrick IG # 0.01 10e3/ul Normal 0.00-0.03 [facility] Comment on above: Performed By: #### C BC ####[facility] [address] [place] [address]Dr. Royal Alcala IG % 0.2 % Normal 0.0-0.5 [facility] Comment on above: Performed By: #### C BC ####[facility] [address] [place] [address]Dr. Pattiebony Alcala LYMPH # 2.0 103/ul Normal 1.2-3.8 [facility] Comment on above: Performed By: #### C BC ####[facility] [address] [place] [address]Dr. Royal Alcala Lymphocytes/100 WBC (Bld) 35.1 % Normal 20.5-60.0 [facility] Comment on above: Performed By: #### C BC ####[facility] [address] [place] [address]Dr. Royal Alcala MANUAL DIFF REQ NO Normal [facility] Comment on above: Performed By: #### C BC ####[facility] [address] [place] [address]Dr. Royal Alcala MCH (RBC) [Entitic mass] 29.3 pg Normal 26.7-34.0 [facility] Comment on above: Performed By: #### C BC ####[facility] [address] [place], [place] [address]Dr. Royal Alcala MCHC (RBC) [Mass/Vol] 33.4 g/dL Normal 29.9-35.2 [facility] Comment on above: Performed By: #### C BC ####[facility] [address] [place], [place] [address]Dr. Royal Alcala MCV (RBC) [Entitic vol] 87.7 fL Normal 81.0-99.0 [facility] Comment on above: Performed By: #### C BC ####[facility] [address] [place], [place] [address]Dr. Royal Alcala MONO # 0.4 103/ul Normal 0.3-0.8 [facility] Comment on above: Performed By: #### C BC ####[facility] [address] [place], [place] [address]Dr. Royal Alcala Monocytes/100 WBC (Bld) 6.2 % Normal 1.7-12.0 [facility] Comment on above: Performed By: #### C BC ####[facility] [address] [place], [place] [address]Dr. Royal Alcala NEUT # 3.2 103/ul Normal 1.4-6.5 [facility] Comment on above: Performed By: #### C BC ####[facility] [address] [place], [place] [address]Dr. Royal Alcala Neutrophils/100 WBC (Bld) 56.6 % Normal 43.0-75.0 [facility] Comment on above: Performed By: #### C BC ####[facility] [address] [place] [address]Dr. Royal Alcala Platelet mean volume (Bld) [Entitic vol] 9.2 fL Critically low 9.5-13.5 [facility] Comment on above: Performed By: #### C BC ####[facility] [address] [place] [address]Dr. Royal Alcala PLT 213 103/ul Normal 150-450 [facility] Comment on above: Performed By: #### C BC ####[facility] [address] [place] [address]Dr. Royal Alcala RBC 4.78 106/ul Normal 4.20-5.40 [facility] Comment on above: Performed By: #### C BC ####[facility] [address] [place] [address]Dr. Royal Alcala WBC 5.6 103/ul Normal 4.0-11.0 [facility] Comment on above: Performed By: #### C BC ####[facility] [address] [place] [address]Dr. Royal Alcala GLYCOHEMOGLOBIN A1Con 2021 ADA RECOMMENDATION SEE BELOW Normal [facility] Comment on above: Result Comment: ADA RECOMMENDED LIMIT 4.0 - 6.0 ADA THERAPEUTIC TARGET < 7.0 ACTION SUGGESTED > 7.0 Performed By: #### A 1C #### [facility] [address] [place] [address] [address] Royal Alcala Glucose [Mass/Vol] 117 mg/dL Normal [facility] Comment on above: Performed By: #### A 1C #### [facility] [address] [place] [address] [address] Royal Alcala HbA1c (Bld) [Mass fraction] 5.7 % Normal 4.5-6.2 [facility] Comment on above: Performed By: #### A 1C #### [facility] [address] [place] [address] [address] Royal Alcala LIPID PROFILEon 12-11-2021 CHOL-HDL RATIO NORM SEE BELOW Normal [facility] Comment on above: Result Comment: 3.3 - 4.4 LOW RISK 4.4 - 7.1 AVERAGE RISK 7.1 - 11.0 MODERATE RISK >11.0 HIGH RISK Performed By: #### C MP, LIPID, TSH #### [facility] [address] [place] [address] [address] Royal Alcala Cholesterol [Mass/Vol] 168 mg/dL Normal <=[address] [facility] Comment on above: Performed By: #### C MP, LIPID, TSH #### [facility] [address] [place] [address] Dr. Royal Alcala Cholesterol in HDL [Mass/Vol] 34 mg/dL Critically low 40 -60 [facility] Comment on above: Performed By: #### C MP, LIPID, TSH #### [facility] [address] [place] [address] Dr. Royal Alcala Cholesterol in LDL [Mass/Vol] 110.6 mg/dL Normal [facility] Comment on above: Performed By: #### C MP, LIPID, TSH #### [facility] [address] [place] [address] Dr. Royal Alcala Cholesterol.total/Cholestero l in HDL [Mass ratio] 4.9 {ratio} Normal [facility] Comment on above: Performed By: #### C MP, LIPID, TSH #### [facility] [address] [place] [address] Dr. Royal Alcala HDL NORMAL > or = 60 mg/dl - LOW CARDIOVASCULAR RISK <40 mg/dl - HIGH CARDIOVASCULAR RISK Normal [facility] Comment on above: Performed By: #### C MP, LIPID, TSH #### [facility] [address] [place] [address] Dr. Royal Alcala LDL CALC NORMAL SEE BELOW Normal [facility] Comment on above: Result Comment: <100 mg/dl OPTIMAL 100 - 129 mg/dl NEAR OR ABOVE OPTIMAL 130 - 159 mg/dl BORDERLINE HIGH 160 - 189 mg/dl HIGH >190 mg/dl VERY HIGH Performed By: #### C MP, LIPID, TSH #### [facility] [address] [place] [address] [address] Royal Alcala Triglyceride [Mass/Vol] 117 mg/dL Normal <=150 T [facility] Comment on above: Performed By: #### C MP, LIPID, TSH #### [facility] [address] [place] [address] Dr. Royal Alcala VLDL CALC 23.4 mg/dL Normal [facility] Comment on above: Performed By: #### C MP, LIPID, TSH #### [facility] [address] [place] [address] Dr. Royal Alcala PROF 14(COMP METB)on 022 Albumin [Mass/Vol] 4.4 g/dL Normal 3.4-5.0 [facility] Comment on above: Performed By: #### C MP, LIPID, TSH #### [facility] [address] [place] [address] Dr. Royal Alcala Albumin/Globulin [Mass ratio] 1.0 {ratio} Normal [facility] Comment on above: Performed By: #### C MP, LIPID, TSH #### [facility] [address] [place] [address] Dr. Royal Alcala ALP [Catalytic activity/Vol] 83 U/L Normal 46-116 [facility] Comment on above: Performed By: #### C MP, LIPID, TSH #### [facility] [address] [place] [address] Dr. Royal Alcala ALT [Catalytic activity/Vol] 84 U/L Critically high 14 -59 [facility] Comment on above: Performed By: #### C MP, LIPID, TSH #### [facility] [address] [place] [address] [address] Royal Alcala Anion gap [Moles/Vol] 13.0 mmol/L Normal [facility] Comment on above: Performed By: #### C MP, LIPID, TSH #### [facility] [address] [place] [address] Dr. Royal Alcala AST [Catalytic activity/Vol] 53 U/L Critically high 15 -37 [facility] Comment on above: Performed By: #### C MP, LIPID, TSH #### [facility] [address] [place] [address] [address] Royal Alcala Bilirubin [Mass/Vol] 0.6 mg/dL Normal 0.2-1.0 [facility] Comment on above: Performed By: #### C MP, LIPID, TSH #### [facility] [address] [place] [address] Dr. Royal Alcala Calcium [Mass/Vol] 9.5 mg/dL Normal 8.5-10.1 [facility] Comment on above: Performed By: #### C MP, LIPID, TSH #### [facility] [address] [place] [address] Dr. Royal Alcala Chloride [Moles/Vol] 104 mmol/L Normal 98-107 [facility] Comment on above: Performed By: #### C MP, LIPID, TSH #### [facility] [address] [place] [address] Dr. Royal Alcala CO2 [Moles/Vol] 25.6 mmol/L Normal 21.0-32.0 [facility] Comment on above: Performed By: #### C MP, LIPID, TSH #### [facility] [address] [place] [address] Dr. Royal Alcala Creatinine [Mass/Vol] 0.80 mg/dL Normal 0.55-1.02 [facility] Comment on above: Performed By: #### C MP, LIPID, TSH #### [facility] [address] [place] [address] Dr. Royal Alcala EGFR-AF INDONESIAN >60 Normal >=60 [facility] Comment on above: Performed By: #### C MP, LIPID, TSH #### [facility] [address] [place] [address] Dr. Royal Alcala EGFR-NON AF INDONESIAN >60 Normal >=60 [facility] Comment on above: Performed By: #### C MP, LIPID, TSH #### [facility] [address] [place] [address] Dr. Royal Alcala Globulin (S) [Mass/Vol] 4.2 g/dL Normal [facility] Comment on above: Performed By: #### C MP, LIPID, TSH #### [facility] [address] [place] [address] Dr. Royal Alcala Glucose [Mass/Vol] 95 mg/dL Normal 74-106 [facility] Comment on above: Performed By: #### C MP, LIPID, TSH #### [facility] [address] [place] [address] Dr. Royal Alcala Potassium [Moles/Vol] 3.6 mmol/L Normal 3.5-5.1 [facility] Comment on above: Performed By: #### C MP, LIPID, TSH #### [facility] [address] [place] [address] Dr. Royal Alcala Protein [Mass/Vol] 8.6 g/dL Critically high 6.4-8.2 [facility] Comment on above: Performed By: #### C MP, LIPID, TSH #### [facility] [address] [place] [address] Dr. Royal Alcala Sodium [Moles/Vol] 139 mmol/L Normal 136-145 [facility] Comment on above: Performed By: #### C MP, LIPID, TSH #### [facility] [address] [place] [address] Dr. Royal Alcala Urea nitrogen [Mass/Vol] 11.0 mg/dL Normal 7.0-18.0 [facility] Comment on above: Performed By: #### C MP, LIPID, TSH #### [facility] [address] [place] [address] Dr. Royal Alcala Urea nitrogen/Creatinine [Ma ss ratio] 13.8 mg/mg Normal [facility] Comment on above: Performed By: #### C MP, LIPID, TSH #### [facility] [address] [place] [address] Dr. Royal Alcala TSHon 12-11-2021 TSH 2.262 uIU/mL Normal 0.358-3.74 0 [facility] Comment on above: Performed By: #### C MP, LIPID, TSH #### [facility] [address] [place] [address] [address] Royal Alcala Covid-19 PCR (CVDTB)on 06-07 SARS-CoV-2 (COVID-19) RNA VAISHALI+probe Ql (Unsp spec) Detected Critically abnormal NOT DETECTED [facility] Comment on above: Result Comment: This test is not yet approved or cleared by the [place] FDA. When there are no FDA-approved or cleared tests available, and other criteria are met, FDA can make tests available under an emergency access mechanism called an Emergency Use Authorization (EUA). The EUA for this test is supported by the [place] of Health and Human Service's (HHS's) declaration that circumstances exist to justify the emergency use of in vitro diagnostics for the detection and/or diagnosis of the virus that causes COVID-19. This EUA will remain in effect (meaning this test can be used) for the duration of the COVID-19 declaration justifying emergency of IVDs, unless it is terminated or revoked by FDA (after which the test may no longer be used). Performed By: #### C VDTBH #### [facility] [address] [place] [address] [address] Royal Alcala Covid-19 PCR (CVDTB)on 05-07 SARS-CoV-2 (COVID-19) RNA VAISHALI+probe Ql (Unsp spec) Not detected Normal NOT DETECTED [facility] Comment on above: Result Comment: This test is not yet approved or cleared by the [place] FDA. When there are no FDA-approved or cleared tests available, and other criteria are met, FDA can make tests available under an emergency access mechanism called an Emergency Use Authorization (EUA). The EUA for this test is supported by the [place] [employer] of Health and Human Service's (HHS's) declaration that circumstances exist to justify the emergency use of in vitro diagnostics for the detection and/or diagnosis of the virus that causes COVID-19. This EUA will remain in effect (meaning this test can be used) for the duration of the COVID-19 declaration justifying emergency of IVDs, unless it is terminated or revoked by FDA (after which the test may no longer be used). When diagnostic testing is negative, the possibility of a false negative should be considered in the context of a patient's recent exposures and the presence of clinical signs and symptoms consistent with SARS-CoV-2. Performed By: #### C [facility] #### [facility] [address] [place], [place] [id number] Dr. Royal Alcala XR CHEST 2 Von 05-21-2021 XR CHEST 2 V EXAMINATION: XR CHEST 2 V HISTORY: COUGH COMPARISON: 05/03/2021 TECHNIQUE: PA and lateral FINDINGS: LUNGS: No significant pulmonary parenchymal abnormalities. VASCULATURE: No increased pulmonary vasculature. PLEURA: No pneumothorax, effusion, or pleural thickening. CARDIAC: No cardiomegaly or cardiac silhouette abnormality. MEDIASTINUM: No visible mass or adenopathy. BONES: No fracture or visible bone lesion. OTHER: Negative. IMPRESSION: No acute disease. Electronically authenticated by: NOLVIA CASTELLANOS Date: 2021-05-21 14:19 Normal [facility] XR CHEST 2 Von 05-03-2021 XR CHEST 2 V EXAM: XR CHEST 2 V 05/03/2021. COMPARISON: PA and lateral chest 10/14/2018. HISTORY: Pain. FINDINGS: The cardiomediastinal contours are stable and within normal limits. No dense consolidation, effusion, edema, failure or pneumothorax noted. The gallbladder is surgically absent. No acute osseous abnormality is identified. IMPRESSION: No acute cardiopulmonary process suspected. Electronically authenticated by: TANIA AUGUSTE Date: 2021-05-03 09:22 Normal [facility] Vital Signs Date Time Vital Sign Value Performing Clinician Facility 09-09-2023 08:47-0400 Body height 165.1 cm Yudith BRADY Work Phone: [facility] 09-09-2023 08:47-0400 Body mass index (BMI) [Ratio] 30.55 kg/m2 Yudith Tolbert APRN-ROPEMAN Work Phone: [facility] 09-09-2023 08:47-0400 Body temperature 97.39 [degF] Yudith Tolbert APRN-ROPEMAN Work Phone: [facility] 09-09-2023 08:47-0400 Body weight 83.28 kg [facility] Work Phone: [facility] 09-09-2023 08:47-0400 Diastolic blood pressure 80 mm[Hg] Yudith Tolbert APRNROPEMAN Work Phone: [facility] 09-09-2023 08:47-0400 Heart rate 84 /min Yudith Tolbert [facility] Work Phone: [facility] 09-09-2023 08:47-0400 Respiratory rate 18 /min Yudith Tolbert [facility] Work Phone: [facility] 09-09-2023 08:47-0400 SaO2% (BldA) [Mass fraction] 96 % Yudith Tolbert [facility] Work Phone: [facility] 09-09-2023 08:47-0400 Systolic blood pressure 128 mm[Hg] Yudithzak Tolbert [facility] Work Phone: [facility] Encounters Encounter Date Encounter Type Care Provider Facility Start: 09-28-2023 ambulatory [facility] Start: 09-22-2023 End: 09-22-2023 ambulatory [facility] Start: 09-09-2023 End: 09-09-2023 ambulatory [facility] Start: 09-09-2023 End: 09-09-2023 Office [facility] 25 [facility]: [facility] - [facility] Comment on above: Major depression sin gle episode, in partial remission ([facility]) (Primary Dx); Psychophysiological insomnia; Generalized anxiety disorder with panic attacks; Seasonal allergic rhinitis due to pollen; Hiatal hernia; Narcotic use agreement exists Start: 06-01-2023 End: 06-01-2023 ambulatory [facility] Start: 03-03-2023 End: 03-04-2023 ambulatory [facility] Facility:[facility] Start: 04-09-2022 End: 04-09-2022 ambulatory YUDITH TOLBERT Facility:[facility] Start: 12-16-2021 Encounter for genera l adult medical examination without abnormal findings YUDITH TOLBERT [facility] Start: 12-11-2021 End: 12-12-2021 ambulatory YUDITH TOLBERT Facility:[facility] Start: 12-11-2021 End: 12-12-2021 Encounter for general adult medical examination without abnormal findings YUDITH TOLBERT Facility:[facility] Start: 06-25-2021 End: 06-25-2021 ambulatory YUDITH TOLBERT Facility:[facility] Start: 05-21-2021 End: 05-21-2021 ambulatory YUDITH TOLBERT Facility:[facility] Start: 05-03-2021 End: 05-03-2021 ambulatory YUDITH TOLBERT Facility: Procedures Date Procedure Procedure Detail Performing Clinician Start: 09-09-2023 Follow-up visit Follow-up YUDITH TOLBERT Start: 09-09-2023 Adult depression screening assessment Yudith Tolbert [employer] Work Phone: Plan of Treatment Date Care Activity Detail Author Start: 09-08-2024 Adult BMI Follow Up Plan Adult BMI Follow Up Plan [facility] Start: 09-08-2024 Adult BMI Screening Adult BMI Screening [facility] Start: 09-08-2024 Depression Screening Depression Screening [facility] Start: 09-08-2024 Tobacco Screening Tobacco Screening [facility] Start: 02-06-2024 Influenza vaccination Influenza Vaccine [facility] Start: 12-15-2023 End: 12-15-2023 Telemedicine consultation with patient 12/15/2023 11:20 AM EDT Telemedicine [facility] Medicine [address] [place] [address] Yudith Tolbert [employer] [address] [place] [id number] [facility] Start: 02-05-2023 COVID-19 Vaccine () COVID-19 Vaccine () [facility] Start: 01-03-2008 DTaP,Tdap and Td Vaccines (1 - Tdap) DTaP,Tdap and Td Vaccines (1 - Tdap) [facility] Immunizations Immunization Date Immunization Notes Care Provider Faraz waldrop 03-26-2020 influenza, injectabl e, quadrivalent, preservative free Yudith Tolbert [employer] Work Phone: [facility] 03-26-2020 influenza virus vaccine, unspecified formulation Yudith Tolbert [employer] Work Phone: [facility] 03-15-2019 influenza virus vaccine, unspecified formulation Yudith Tolbert [employer] Work Phone: [facility] 03-15-2019 influenza, injectabl e, quadrivalent, contains preservative Yudith Tolbert [employer] Work Phone: [facility] 03-31-2017 influenza virus vaccine, unspecified formulation Yudith Tolbert [employer] Work Phone: [facility] Payers Date Payer Category Payer [employer] ( and others) [facility] [id number] 2017-Present [phone] [address] [place] [address] [id number] 2017 Private Health Insurance [facility] [id number] 2003 Medicaid [employer] [id number] 2003-Present [phone] [address] [place] [address] [id number] 1989 Unknown [id number]. 593 1989 Unknown [id number] [id number]. 593 1989 Unknown [id number] [id number]. 593 1989 Unknown [id number] [id number]. 593 1989 Unknown [id number] [id number]. 593 1989 Unknown [id number] [id number]. 727 1989 Unknown [id number] [id number]. 1286 1989 Unknown [id number] [id number]. 1286 1989 Unknown [id number] [id number]. 1286 1989 Unknown [id number]. 1286 1959 [employer] ( and others) [id number] 1959 Unknown [id number] 1959 Unknown [id number] Social History Date Type Detail Facility Start: 06-30-2022 Tobacco smoking stat [facility] Never smoked tobacco [facility] Start: 06-30-2022 Tobacco use and exposure Smoke less tobacco non-user [facility] Start: 09-09-2023 Alcohol intake Current drinke r of alcohol (finding) [facility] Start: 06-20-2020 End: 09-09-2023 Alcohol intake [facility] Start: 12-05-2019 End: 06-20-2020 Social connection and isolation panel [facility] Do you belong to any clubs or organizations such as uatsdin groups, unions, fraternal or athletic groups, or school groups? No [facility] Are you now , , , , never or living with a partner? [facility] How often to you hav e a drink containing alcohol? Monthly or less [facility] How many standard dr inks containing alcohol do you have on a typical day? 1 or 2 [facility] How often do you hav e 6 or more drinks on 1 occasion? Never [facility] How hard is it for y ou to pay for the very basics like food, housing, medical care, and heating Somewhat hard [facility] Adolescent depressio n screening assessment 0 [facility] Do you feel stress - tense, restless, nervous, or anxious, or unable to sleep at night because your mind is troubled all the time - these days [OSQ] Very much [facility] Start: 12-05-2019 Education 12 [facility] Start: 03-22-2018 Alcohol Comment rarely [facility] Start: 1990 Sex Assigned At Not on file P [facility] History of Present illness Narrative 09-09-2023 [facility] 09/09/2023 9:00 AM EDT Note Date & Type Note Facility 09-09-2023 History of Present illness Narrative Images from the original note were not included. [address] [facility] [address] SUBJECTIVE: Patient ID: Oliva Christianson is a 33 y.o. female. Chief Complaint Patient presents with Follow-up 3month Presents for follow up States her days have been more sadness over the past several months. Triggers are home life and work. She noticed she is also taking lorazepam for panic attacks more often again. States her seasonal allergies have been bothering her. Is currently taking Zyrtec. Depression Visit: Follow-up Initial visit: Symptoms: insomnia Symptoms: no chest pain, no nausea, no palpitations and no shortness of breath Follow-up visit: Symptoms: decreased concentration, depressed mood, insomnia, malaise, muscle tension, nervous/anxious and panic Frequency: Occasionally Severity: Mild Current Treatment: SSRI's, benzodiazephines and non-SSRI antidepressants Response to treatment: Symptoms are waxing and waning Sleep quality: Good Nighttime awakenings: None Heartburn She complains of belching, early satiety and heartburn. She reports no chest pain or no nausea. The current episode started more than 1 year ago. The problem occurs rarely. The heartburn duration is more than one hour. The heartburn is located in the substernum, RUQ and LUQ. The heartburn is of moderate intensity. The heartburn wakes her from sleep. The heartburn does not limit her activity. The heartburn doesn't change with position. The symptoms are aggravated by certain foods and stress. Pertinent negatives include no anemia, fatigue, melena, muscle weakness, orthopnea or weight loss. Risk factors include obesity. She has tried a PPI, a histamine-2 antagonist and an antacid for the symptoms. The treatment provided significant relief. Past procedures include an abdominal ultrasound, an EGD, H. pylori antibody titer and a UGI. Insomnia This is a chronic problem. The current episode started more than 1 year ago. The problem occurs intermittently. Pertinent negatives include no chest pain, chills, fatigue, fever or nausea. The symptoms are aggravated by stress. She has tried sleep (ambien) for the symptoms. The treatment provided significant relief. The following portions of the patient's history were reviewed and updated as appropriate: allergies, current medications, past family history, past medical history, past social history, past surgical history and problem list. Past Surgical History: Procedure Laterality Date DIAGNOSTIC LAPAROSCOPY 11/2015 adhesions DIAGNOSTIC LAPAROSCOPY 2015 DIAGNOSTIC LAPAROSCOPY 2012 HYSTERECTOMY LAPAROSCOPIC CHOLECYSTECTOMY LAPAROSCOPIC OOPHORECTOMY, LYSIS OF ADHESIONS Bilateral 03/09/2017 Performed by Manas Madrid MD at [facility] LAPAROSCOPIC TUBAL LIGATION 2015 LAPAROSCOPIC VAGINAL HYSTERECTOMY 10/2015 Past Medical History: Diagnosis Date Angina pectoris ([facility]) Anxiety Dental disease gingivitis Endometriosis 01/27/2017 Hematoma of abdominal wall Insomnia Pelvic pain adhesion Pericarditis 07/2016 hospitalized at [facility] Seasonal allergies Immunization History Administered Date(s) Administered COVID-19, mRNA, LNP-S, PF, 30mcg/0.3mL Dose 09/06/2020, 10/01/2020 Influenza, Injectable, Quadrivalent 03/15/2019 Influenza, Injectable, quadrivalent (PF) 03/26/2020 Influenza, Unspecified 03/31/2017, 03/15/2019 REVIEW OF SYSTEMS: Review of Systems HENT: Positive for congestion and postnasal drip. Eyes: Positive for itching. Negative for visual disturbance. Respiratory: Negative for chest tightness and shortness of breath. Cardiovascular: Negative for palpitations. Gastrointestinal: Negative. Endocrine: Negative. Genitourinary: Negative for menstrual problem and pelvic pain. Musculoskeletal: Negative. Skin: Negative. Allergic/Immunologic: Positive for environmental allergies. Neurological: Negative for syncope and facial asymmetry. Hematological: Does not bruise/bleed easily. Psychiatric/Behavioral: Positive for decreased concentration. PHYSICAL EXAMINATION: Vitals: 09/09/23 0847 BP: 128/80 BP Site: Left Arm BP Postition: Sitting Pulse: 84 Resp: 18 Temp: 36.3 C (97.4 F) TempSrc: Tympanic SpO2: 96% Weight: 83.3 kg (183 lb 9.6 oz) Height: 165.1 cm (5' 5 ) Patient noted to have elevated BMI and the following intervention(s) were applied: encouragement to exercise. Physical Exam Vitals and nursing note reviewed. Constitutional: General: She is not in acute distress. Appearance: She is well-developed. She is not diaphoretic. HENT: Head: Normocephalic and atraumatic. Right Ear: Tympanic membrane and external ear normal. Left Ear: Tympanic membrane and external ear normal. Nose: Nose normal. Mouth/Throat: Mouth: Mucous membranes are moist. Pharynx: No oropharyngeal exudate. Comments: Clear post nasal drainage Eyes: General: Right eye: No discharge. Left eye: No discharge. Conjunctiva/sclera: Conjunctivae normal. Pupils: Pupils are equal, round, and reactive to light. Neck: Thyroid: No thyromegaly. Vascular: No JVD. Cardiovascular: Rate and Rhythm: Normal rate and regular rhythm. Heart sounds: Normal heart sounds. No murmur heard. No friction rub. No gallop. Pulmonary: Effort: Pulmonary effort is normal. Breath sounds: Normal breath sounds. Abdominal: General: Bowel sounds are normal. There is no distension. Palpations: Abdomen is soft. There is no mass. Tenderness: There is no abdominal tenderness. Musculoskeletal: General: Normal range of motion. Cervical back: Normal range of motion and neck supple. Lymphadenopathy: Cervical: No cervical adenopathy. Skin: General: Skin is warm and dry. Capillary Refill: Capillary refill takes less than 2 seconds. Neurological: Mental Status: She is alert and oriented to person, place, and time. Deep Tendon Reflexes: Reflexes are normal and symmetric. Psychiatric: Mood and Affect: Mood normal. Behavior: Behavior normal. Thought Content: Thought content normal. Judgment: Judgment normal. ASSESSMENT/PLAN: Oliva was seen today for follow-up. Diagnoses and all orders for this visit: Major depression single episode, in partial remission ([facility]) - venlafaxine XR (EFFEXOR-XR) 150 mg 24 hr capsule; Take 1 capsule (150 mg total) by mouth in the morning. TAKE 1 CAPSULE (75 MG TOTAL) BY MOUTH IN THE MORNING. Psychophysiological insomnia - zolpidem (AMBIEN) 10 mg tablet; Take 1 tablet (10 mg total) by mouth nightly as needed for sleep. Generalized anxiety disorder with panic attacks - LORazepam (ATIVAN) 1 mg tablet; TAKE 1 TABLET BY MOUTH TWICE A DAY NEEDED FOR ANXIETY - QUEtiapine (SeroqueL) 25 mg tablet; Take 1 tablet (25 mg total) by mouth nightly. Take with 50 mg tab ( total 75mg) - QUEtiapine (SeroqueL) 50 mg tablet; Take 1 tablet (50 mg total) by mouth nightly. To be taken with 25 mg nightly Seasonal allergic rhinitis due to pollen - fexofenadine (ASIA ALLERGY) 180 mg tablet; Take 1 tablet (180 mg total) by mouth in the morning. - fluticasone propionate (FLONASE) 50 mcg/actuation nasal spray; Administer 2 sprays into each nostril in the morning. Hiatal hernia - pantoprazole (PROTONIX) 40 mg EC tablet; TAKE 1 TABLET BY MOUTH EVERY DAY IN THE MORNING BEFORE BREAKFAST - famotidine (PEPCID) 20 mg tablet; Take 1 tablet (20 mg total) by mouth in the morning and 1 tablet (20 mg total) before bedtime. Narcotic use agreement exists - Drug Screen, Urine; Future Depression Depression: Not at risk (09/09/2023) PHQ-2 PHQ-2 Score: 0 Rates zero on depression screen but admits she has been having more days of sadness. Stressors have increased. Demands with family. States two of her children are teenages which poses more challenges with behaviors. Increase Effexor to 150 mg oral daily 2. Generalized anxiety with panic Lorazepam 1 mg twice daily PRN for panic. Continue Seroquel 75 mg oral nightly Urine drug screen 3. Insomnia Psychological. Secondary to anxiety Attempt to wean Ambien in the past, unsuccessful Reorder Ambien 10 mg oral nightly PRN 4. GERD History of hiatal hernia Limit or avoid trigger foods and beverages. Consider weight loss. Has not had any recent flares EGD in past by GI Continue famotidine 20 mg oral twice daily Reorder pantoprazole 40 mg oral daily 5. Allergic rhinitis, seasonal Flonase per nasal as directed Discontinue Zyrtec. Start fexofenadine ALL QUESTIONS ANSWERED Total time spent was 35 minutes: Preparing to see the patient (e.g., review of tests) Obtaining and/or reviewing separately obtained history Performing a medically appropriate examination and/or evaluation Counseling and educating the patient/family/caregiver Ordering medications, tests, or procedures Follow-up: 3 months JOSE ANTONIO Rodrigues 09/09/23 1304 documented in this encounter [facility] Evaluation note Note Date & Type Note Facility Evaluation note Diagnosis Major depression single episode, in partial remission ([facility] Primary Major depressive disorder, single episode, in partial or unspecified remission Psychophysiological insomnia Persistent disorder of initiating or maintaining sleep Generalized anxiety disorder with panic attacks Seasonal allergic rhinitis due to pollen Hiatal hernia Diaphragmatic hernia without mention of obstruction or gangrene Narcotic use agreement exists documented in this encounter [employer] [facility] Instructions Attachments Note Date & Type Note Facility Instructions The following attachments cannot be sent through Care Everywhere.Depression (Rwandan)documented in this encounter [employer] [facility] Summary Purpose Family History No Family History Records FoundNo Family History Records FoundNo Family History Records FoundNo Family History Records Found Advance Directives No Advanced Directives Records FoundNo Advanced Directives Records FoundNo Advanced Directives Records FoundNo Advanced Directives Records Found Additional Source Comments INFORMATION SOURCE (unrecogn ized section and content) DATE CREATED AUTHOR 04/13/2022 [facility] DATE CREATED AUTHOR AUTHOR'S ORGANIZ ATION 03/09/2023 [facility] DATE CREATED AUTHOR AUTHOR'S ORGANIZ ATION 09/24/2023 [facility] DATE CREATED AUTHOR AUTHOR'S ORGANIZ ATION 09/29/2023 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 This clinical summary was aggregated from multiple sources. Caution should be exercised in using it in the provision of clinical care. This summary normalizes information from multiple sources, and as a consequence, information in this document may materially change the coding, format and clinical context of patient data. In addition, data may be omitted in some cases. CLINICAL DECISIONS SHOULD BE BASED ON THE PRIMARY CLINICAL RECORDS. [email or web address] [facility]. provides no warranty or guarantee of the accuracy or completeness of information in this document.
--- NOTE | 2023-10-06 10:00 | CT_ITS ---
The [address] [address] Patient Name: QING RAMIREZ MRN: [id number] date: 1990 Sex: F Assigned Patient Location: ER Current Patient Location: Accession/Order Number: [id number] Exam Date: 10/06/2023 10:36 Report Date: 10/06/2023 11:44 At the request of: MERY SANTIAGO Procedure: CT soft tissue neck w con EXAM: CT scan soft tissue neck with contrast. TECHNIQUE: CT scan performed through the soft tissues neck with contrast and reconstructed in the axial, coronal and sagittal plane. Dose reduction techniques were achieved by using automated exposure control and/or adjustment of mA and/or kV according to patient size and/or use of iterative reconstruction technique. Contrast: 99 mL Omnipaque 300 contrast. HISTORY: Left-sided face lesion. FINDINGS: Skin marker placed over the area of concern. Deep to the skin marker is a level 2 lymph node (digastric lymph node) measuring 14 mm in least transverse diameter. There is a similar but slightly smaller digastric lymph node right neck measuring 9 mm in least transverse diameter. The nasopharynx, oropharynx, parapharyngeal soft tissues and larynx are normal in appearance. The parotid glands, submandibular glands and thyroid are normal. The jugular veins and carotid arteries are patent. Lung apices are clear. CT/CT soft tissue neck w con IMPRESSION: Benign-appearing dominant left digastric lymph node measuring 14 mm in least transverse diameter. There are scattered smaller lymph nodes both necks. Electronically authenticated by: Zenaida GRAHAM Date: 10/06/2023 11:44
[2023-10-06] MEDS: ONDANSETRON PF 4 MG/2 ML VIAL IV (10:19)
[2023-10-06] MEDS: KETOROLAC TROMETHAMINE 30 MG/ML VIAL 15 MG IVP ×2 (10:19→12:26)
[2023-10-06] MEDS: 0.9 % SODIUM CHLORIDE 1,000 ML 999 ML IV (10:19)
[2023-10-06 10:26] LABS: Basophils Percent Auto 0.5 % (0.2-2.0); Eosinophils Absolute Auto 0.1 10^3/uL (0.0-0.7); Eosinophils Percent Auto 0.7 % (0.9-7.0); Hematocrit 41.8 % (36.0-48.0); Hemoglobin 13.9 g/dL (12.0-16.0); Immature Granulocytes Abs Auto 0.02 10^3/uL (0.00-0.03); Immature Granulocytes Pct Auto 0.2 % (0.0-0.5); Lymphocytes Absolute Auto 0.7 10^3/uL (1.2-3.8); Lymphocytes Percent Auto 8.9 % (20.5-60.0); Mean Corpuscular HGB Conc 33.3 g/dL (29.9-35.2); Mean Corpuscular Hemoglobin 28.7 pg (26.7-34.0); Mean Corpuscular Volume 86.4 fL (81.0-99.0); Mean Platelet Volume 9.1 fL (9.5-13.5); Monocytes Absolute Auto 0.4 10^3/uL (0.3-0.8); Monocytes Percent Auto 5.1 % (1.7-12.0); Neutrophils Percent Auto 84.6 % (43.0-75.0); Platelet Count 209 10^3/uL (150-450); Red Blood Count 4.84 10^6/uL (4.20-5.40); Red Cell Distribution Width 12.8 % (11.0-15.0); White Blood Count 8.3 10^3/uL (4.0-11.0)
[2023-10-06 11:04] LABS: Internal Control Within Normal Limits; Strep A Antigen Screen Negative
--- NOTE | 2023-10-06 11:05 | ED_ITS ---
HPI HPI - General Adult General Chief complaint: Upper Respiratory Infection Stated complaint: FACIAL SWELLING/PAIN Time Seen by Provider: 10/06/23 09:42 Source: patient Mode of arrival: walk-in Limitations: no limitations History of Present Illness HPI narrative: Patient presents to ED complaining of not feeling well. She said for the past 2 days or so she has had some left-sided neck swelling and today got worse. She said today her throat is more sore and she has more swelling on the left side below the ear and underneath her chin and in the left side of her throat. No drooling no trismus she is able to speak in full sentences no stridor. She also had 1 episode of nausea vomiting. She denies abdominal pain. No fevers.She does not have a hoarse voice. No cough or shortness of breath.She denies any dental pain she said it is more under the left ear and into the left side of the throat. No tenderness over the mastoid process. Related Data Home Medications ?Medication ?Instructions ?Recorded ?Confirmed famotidine 20 mg tablet 20 mg PO DAILY 03/24/23 10/06/23 zolpidem 10 mg tablet 10 mg PO DAILY 03/24/23 10/06/23 cholecalciferol (vitamin D3) 125 125 mcg PO DAILY 06/08/23 10/06/23 mcg (5,000 unit) capsule pantoprazole 40 mg tablet,delayed 40 mg PO DAILY 06/08/23 10/06/23 release quetiapine 50 mg tablet 75 mg PO DAILY 06/08/23 10/06/23 ibuprofen 800 mg tablet 800 mg PO Q6H PRN pain 10/06/23 10/06/23 lorazepam 1 mg tablet 1 mg PO BID PRN anxiety 10/06/23 10/06/23 quetiapine 25 mg tablet 25 mg PO DAILY 10/06/23 10/06/23 Previous Rx's ?Medication ?Instructions ?Recorded albuterol sulfate 90 mcg/actuation 2 inh inhalation Q4H PRN shortness 06/08/23 breath activated powder of breath or wheezing #1 ea inhaler,sensor uyeyuinwqjyqdcs-ikazcfrluhqxawj-VF 10 ml PO Q6H PRN cold symptoms 06/08/23 2 mg-30 mg-10 mg/5 mL oral syrup #200 mL (Bromfed DM) azithromycin 250 mg tablet See Rx Instructions PO .COMPLEX #6 05/01/24 (Zithromax Z-Iron) tabs Allergies Allergy/AdvReac Type Severity Reaction Status Date / Time amoxicillin AdvReac Intermediate Verified 10/06/23 09:43 midazolam [From Versed] AdvReac Intermediate Verified 10/06/23 09:43 Opioid HPI Opioid Management Most Recent Opioid Data: Last Pain Scale 4 10/06/23 10:19 Last MAR Pain Assessment 10/06/23 10:19 Review of Systems ROS Status of ROS 10 or more systems reviewed and unremark able except as noted in history and below PFSH PFS Social History Smoking status: Never smoker Exam Narrative Exam Narrative: Time Seen: [] Vital Signs: [Per nurse's notes.] General: [Alert] Skin: [Warm, dry, no rash.] Head: [Normocephalic, atraumatic.] Neck: [Supple, trachea midline.]Swelling and tenderness to palpation on the left side of the neck Eye: [Pupils are equal, round and reactive to light, extraocular movements are intact, normal conjunctiva.] Ears, nose, mouth and throat: oral mucosa moist. Posterior pharynx shows erythema bilaterally no exudates noted midline shiftNo drooling no trismus Cardiovascular: [Regular rate and rhythm, no murmur.] Respiratory: [Lungs are clear to auscultation, respirations are non-labored, breath sounds are equal.]No stridor Chest wall: [No tenderness, no deformity.] Gastrointestinal: [Soft, nontender, non distended, normal bowel sounds.] MSK: 5 out of 5 muscle strength x 4 extremities no calf pain or edema Psychiatric: [Cooperative, appropriate mood & affect.] Neurological: [Alert and oriented to person, place, time, and situation, no focal neurological deficit observed.] Constitutional Vital Signs, click to edit/add: Last Vital Signs Temp 98.4 F 10/06/23 09:38 Pulse 95 H 10/06/23 11:10 Resp 18 10/06/23 11:10 BP 133/87 10/06/23 11:10 Pulse Ox 96 10/06/23 11:10 O2 Del Method Room Air 10/06/23 09:38 Course Course Hospital Course: IV fluids Toradol ordered here in ED. Labs including blood culture and lactate are ordered. We will get soft tissue CT scan of the neck to evaluate for abscess or deep infection. Vital Signs Vital signs: Vital Signs Temperature 98.4 F 10/06/23 09:38 Pulse Rate 107 H 10/06/23 09:38 Respiratory Rate 20 10/06/23 09:38 Blood Pressure 134/97 H 10/06/23 09:38 Pulse Oximetry 94 L 10/06/23 09:38 Oxygen Delivery Method Room Air 10/06/23 09:38 Temperature 98.4 F 10/06/23 09:38 Pulse Rate 95 H 10/06/23 11:10 Respiratory Rate 18 10/06/23 11:10 Blood Pressure 133/87 10/06/23 11:10 Pulse Oximetry 96 10/06/23 11:10 Oxygen Delivery Method Room Air 10/06/23 09:38 Medical Decision Making MDM Narrative Medical decision making narrative: Patient's labs are nonacute. Strep screen negative. CT shows a large left cervical lymph node benign appearing. No deep abscess or deep space infection.Patient will be sent home with antibiotics in case an infection is beginning to develop. Continue Tylenol and Motrin for any pain or swelling. Return to ED immediately if any stridor or shortness of breath Differential Diagnosis Differential Diagnosis: Peritonsillar abscess strep throat URI lymphadenopathy Medical Records Medical records reviewed: Yes I reviewed the patient's medical records Lab Data Lab results reviewed: Yes I reviewed the patient's lab results Labs: Lab Results 10/06/23 10/06/23 Range/Units 10:11 10:13 WBC 8.3 (4.0-11.0) 10^3/uL RBC 4.84 (4.20-5.40) 10^6/uL Hgb 13.9 (12.0-16.0) g/dL Hct 41.8 (36.0-48.0) % MCV 86.4 (81.0-99.0) fL MCH 28.7 (26.7-34.0) pg MCHC 33.3 (29.9-35.2) g/dL RDW 12.8 (11.0-15.0) % Plt Count 209 (150-450) 10^3/uL MPV 9.1 L (9.5-13.5) fL Neut % (Auto) 84.6 H (43.0-75.0) % Lymph % (Auto) 8.9 L (20.5-60.0) % [place] % (Auto) 5.1 (1.7-12.0) % Eos % (Auto) 0.7 L (0.9-7.0) % Baso % (Auto) 0.5 (0.2-2.0) % Neut # (Auto) 7.0 H (1.4-6.5) 10^3/uL Lymph # (Auto) 0.7 L (1.2-3.8) 10^3/uL [place] # (Auto) 0.4 (0.3-0.8) 10^3/uL Eos # (Auto) 0.1 (0.0-0.7) 10^3/uL Baso # (Auto) 0.0 (0.0-0.1) 10^3/uL Abs Immat Gran (auto) 0.02 (0.00-0.03) 10^3/uL Imm/Tot Granulo (auto) 0.2 (0.0-0.5) % Sodium 138 (136-145) mmol/L Potassium 3.5 (3.5-5.1) mmol/L Chloride 102 (98-107) mmol/L Carbon Dioxide 20.5 L (21.0-32.0) mmol/L Anion Gap 19.0 BUN 10.0 (7.0-18.0) mg/dL Creatinine 0.80 (0.55-1.02) mg/dL Est GFR ( Amer) >60 (>=60) Est GFR (Non-Af Amer) >60 (>=60) BUN/Creatinine Ratio 12.5 Glucose 106 (74-106) mg/dL Lactate 1.1 (0.4-2.0) mmol/L Calcium 9.6 (8.5-10.1) mg/dL Total Bilirubin 0.8 (0.2-1.0) mg/dL AST 43 H (15-37) U/L ALT 70 H (14-59) U/L Alkaline Phosphatase 100 (46-116) U/L Total Protein 8.6 H (6.4-8.2) g/dL Albumin 4.2 (3.4-5.0) g/dL Globulin 4.4 g/dL Albumin/Globulin Ratio 1.0 Streptococcus Screen Negative Imaging Data ct neck: Radiologist's impression: ITS Impressions Soft Tissue Neck CT 10/06/23 10:00 IMPRESSION: Benign-appearing dominant left digastric lymph node measuring 14 mm in least transverse diameter. There are scattered smaller lymph nodes both necks. Electronically authenticated by: Zenaida GRAHAM Date: 10/06/2023 11:44 Discharge Plan Discharge Stand Alone Forms: Portal Instructions Chief Complaint: Upper Respiratory Infection Clinical Impression: Lymphadenopathy, Pharyngitis Patient Disposition: Home, Self-Care Time of Disposition Decision: 12:13 Condition: Good Mode of Transportation: Private Vehicle Prescriptions / Home Meds: New azithromycin [Zithromax Z-Iron] 250 mg tablet See Rx Instructions .ROUTE .COMPLEX Qty: 6 0RF Rx Instructions: For 250 mg dose pack: take 500 mg today (day 1), then 250 mg for 4 days (days 2-5) No Action famotidine 20 mg tablet 20 mg PO DAILY zolpidem 10 mg tablet 10 mg PO DAILY cholecalciferol (vitamin D3) 125 mcg (5,000 unit) capsule 125 mcg PO DAILY pantoprazole 40 mg tablet,delayed release (DR/EC) 40 mg PO DAILY quetiapine 50 mg tablet 75 mg PO DAILY [id number]-[id number] [Bromfed DM] 2-30-10 mg/5 mL syrup 10 ml PO Q6H PRN (Reason: cold symptoms) Qty: 200 0RF albuterol sulfate 90 mcg/actuation aero powdr breath act w/sensor 2 inh inhalation Q4H PRN (Reason: shortness of breath or wheezing) Qty: 1 0RF ibuprofen 800 mg tablet 800 mg PO Q6H PRN (Reason: pain) lorazepam 1 mg tablet 1 mg PO BID PRN (Reason: anxiety) quetiapine 25 mg tablet 25 mg PO DAILY Print Language: Setswana Instructions: Pharyngitis (ED), Lymphadenopathy (ED) Referrals: YUDITH COULTER [Primary Care Provider] - 1 week
[2023-10-06 11:10] VITALS: BP 133/87; PULSE 95; O2SAT 96
[2023-10-06 11:13] LABS: Lactate/Lactic Acid 1.1 mmol/L (0.4-2.0)
[2023-10-06 11:43] LABS: Alanine Aminotransferase 70 U/L (14-59); Albumin Level 4.2 g/dL (3.4-5.0); Alkaline Phosphatase 100 U/L (46-116); Aspartate Amino Transferase 43 U/L (15-37); BUN Creatinine Ratio 12.5; Bilirubin Total 0.8 mg/dL (0.2-1.0); Calcium 9.6 mg/dL (8.5-10.1); Carbon Dioxide 20.5 mmol/L (21.0-32.0); Chloride 102 mmol/L (98-107); Estimated GFR (African America >60 (>=60); Estimated GFR (Non-African Ame >60 (>=60); Globulin 4.4 g/dL; Glucose 106 mg/dL (74-106); Potassium 3.5 mmol/L (3.5-5.1); Sodium 138 mmol/L (136-145); Total Protein 8.6 g/dL (6.4-8.2)
[2023-10-06 12:10] VITALS: BP 143/77; PULSE 90; O2SAT 98
[2023-10-06 12:27] LABS: PROCALCITONIN <0.05 ng/mL (0.00-0.50)
== END 2023-10-06 12:34 | disposition home or self-care (01) ==
PROVIDERS: Emergency Provider Emergency Medicine; PCP Nurse Practitioner
DX: J02.9 Acute pharyngitis, unspecified (principal); R59.0 Localized enlarged lymph nodes; Z79.899 Other long term (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 therapy
CPT/HCPCS: 36415; 70491; 80053; 83605; 84145; 85025; 87040; 87070; 87880; 96361; 96374; 96375; 96376; 99284; Q9967

== ENCOUNTER 2023-11-24 15:10 | Emergency (ER) | payer OTHER, SELFPAY ==
[2023-11-24] VITALS (13 sets, daily range): BP systolic 124–139; BP diastolic 81–98; PULSE 65–83; TEMP 37; O2SAT 96–100
--- OUTSIDE RECORDS SUMMARY | 2023-11-24 15:24 | XMS_ITS | CCD ---
Author Organization [facility] Inform ion Partnership [facility] Care Team Providers Care Rn Assessment Name Role Phone TOMASZ YUDITH Primary Care Unavailable CHARLES, HANK Admitting Unavailable CHARLES, HANK Attending Unavailable TANIA AUGUSTE Consulting Unavailable CHARLES, HANK Consulting Unavailable TOLBERT, YUDITH Primary Care Unavailable CHARLES, HANK Admitting Unavailable CHARLES, HANK Attending Unavailable EMANUEL, DR NOLVIA Preston Consulting Unavailable KAITLYNN LAZO Consulting Unavailable VICKY DURBIN Consulting Unavailable TOLBERT, YUDITH Primary Care Unavailable MARKER, DR TAVARES Admitting Unavailable MARKER, DR TAVARES Attending Unavailable HAY, DR AGUIRRE Consulting Unavailable TOLBERT, YUDITH Admitting Unavailable TOLBERT, YUDITH Attending Unavailable TOLBERT, YUDITH Primary Care Unavailable TOLBERT, YUDITH Consulting Unavailable TOLBERT, YUDITH Admitting Unavailable TOLBERT, YUDITH Attending Unavailable TOLBERT, YUDITH Primary Care Unavailable TOLBERT, YUDITH Consulting Unavailable TOLBERT, YUDITH Primary Care Unavailable Ernestina Berger Attending Unavailable Tolbert LOG MANAGER-ARMY HELICOPTER PILOTTiffanyYudith J Primary Care Provid er YUDITH TOLBERT Attending Unavailable TOLBERT, YUDITH J Referring Unavailable TOLBERT, YUDITH J Primary Care Unavailable TOLBERT, YUDITH J Attending Unavailable TOLBERT, YUDITH J Referring Unavailable TOLEBRT, YUDITH J Primary Care Unavailable PEYMAN ROBERTS Attending Unavailable TIFFANY TOLBERTERIE Raheel Referring Unavailable TOLBERT, YUDITH J Primary Care Unavailable PEYMAN ROBERTS Referring Unavailable TOLBERT, YUDITH J Primary Care Unavailable Allergies Allergy Classification Reported Allergen(s) Allergy Type Date of Onset Reaction(s) Facility (4 sources) Amoxicillin; Translations: [amoxicillin] Drug Allergy 4 [facility] Repository (2 sources) Midazolam; Translations: [Versed] Drug Allergy 7 [facility] Repository (1 source) Amoxicillin Drug Allergy 7 [facility] Midazolam; Translations: [MIDAZOLAM] Drug Allergy 9 Other (See Comments), Nausea And Vomiting [facility] Medications Current Medications Medication Drug [...] (kaur sore). 5 g 0 04/11/2019 Active [id number] 200 actuat albuterol 0.09 mg/actuat metered dose [...] (1 source) Histamine-1 Receptor Antagonist Start: 09-11-19 take 1 capsule by mouth three times daily as needed Allergy, diphenhydrAMINE, 25 mg capsule Indications: Seasonal allergic rhinitis due to pollen Take 1 capsule (25 mg total) by mouth 3 (three) times a day as needed for allergies. 90 capsule 2 09/11/2019 Active famotidine 20 mg oral tablet (2 sources) Histamine-2 Receptor Antagonist Start: 06-01-20 End: 09-09-19 take 1 tablet by mouth in [...] tablet (1 source) Thiazide Diuretic Start: 06-01-20 take 1 tablet by mouth once daily as needed hydroCHLOROthiazide (HYDRODIURIL) 12.5 mg tablet Indications: Localized swelling of both lower legs TAKE 1 TABLET BY MOUTH EVERYDAY NEEDED FOR LEG SWELLING 30 tablet 5 06/01/2023 Active LORazepam 1 mg oral tablet (2 sources) Benzodiazepine Start: 06-01-20 End: 09-09-19 24 take 1 tablet by [...] 06-01-2023 Chronic Other aftercare (1 source) 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; Translations: [OTH GROUP HOME CURRENT DRUG THERAPY] Onset: 04-13-2022 Episodic Other aftercare (1 source) Drug therapy finding; 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] 09-09-2023 Episodic [...] Onset: 05-03-2021 Episodic Other aftercare (1 source) correction (current) use of opiate analgesic; Translations: [correction (current) use of opiate analgesic] Onset: 06-01-2023 [...] Translations: [CONTACT W/AND (SUSP) EXPOS COVID-19] Onset: 01-19-2022 Unclassified (1 source) Onset: 09-09-2023 09-09-2023 Results Test Name Value Interpretation Reference Range Facility Drug Screen, Urineon 024 Amphetamines Screen method >1000 ng/mL Ql (U) Negative Negative^N [facility] Comment on above: AMPH/METH screening cut off = 1000 ng/mL Barbiturates Screen Ql (U) Negative N egative^N [facility] Comment on above: Barbiturates screeni ng cut off value = 200 ng/mL Benzodiazepines Ql (U) Negative Negat ami^N [facility] Comment on above: Benzodiazepines scre ening cut off value = 200 ng/mL Cocaine Ql (U) Negative Negative^N [facility] Comment on above: Cocaine screening cu t off value = 300 ng/mL Methadone Screen Ql (U) Negative Nega tive^N [facility] Comment on above: Methadone screening cut off value = 300 ng/mL. Methylenedioxymethamphetamin e Screen Ql (U) Negative Negative^N [facility] Comment on above: Ecstasy screening cu t off value = 500 ng/mL This report is intended for use in clinical monitoring or management of patients. Opiates Screen Ql (U) Negative Negati ve^N [facility] Comment on above: Opiates screening cu t off value = 300 ng/mL NOTE: This test is used for the detection of codeine, hydrocodone (>1000 ng/mL), morphine and hydromorphone (>900 ng/mL) in urine. oxyCODONE Ql (U) Negative Negative^N [facility] Comment on above: Oxycodone screening cut off value = 300 ng/mL NOTE: This test is used for the detection of oxycodone and oxymorphone in urine. Phencyclidine Screen method >25 ng/mL Ql (U) Negative Negative^N [facility] Comment on above: Phencyclidine screen ing cut off value = 25 ng/mL Tetrahydrocannabinol Screen method >50 ng/mL Ql (U) Negative Negative^N [facility] Comment on above: Cannabinoids/THC scr eening cut off value = 50 ng/mL [facility] AMYLASEon 04-09-2022 Amylase [Catalytic activity/Vol] 47 U/L Normal 25-115 [facility] Comment on above: Performed By: #### L YENNY, JOANNE, CMP #### [facility] Laboratory [address] [address] [address] Royal Alcala CBC AUTO DIFFon 04-09-2022 BASO # 0.1 103/ul Normal 0.0-0.1 [facility] Comment on above: Performed By: #### C BC ####[facility] [address] [address]DrJem Alcala Basophils/100 WBC (Bld) 0.9 % Normal 0.2-2.0 [facility] Comment on above: Performed By: #### C BC ####[facility] [address] [address]DrJem Alcala EO # 0.1 103/ul Normal 0.0-0.7 [facility] Comment on above: Performed By: #### C BC ####[facility] [address] [address]DrJem Alcala Eosinophils/100 WBC (Bld) 2.1 % Normal 0.9-7.0 [facility] Comment on above: Performed By: #### C BC ####[facility] [address] [address]DrJem Alcala Erythrocyte distribution wid th (RBC) [Ratio] 12.9 % Normal 11.0-15.0 [facility] Comment on above: Performed By: #### C BC ####[facility] [address] [address]DrJem Alcala Hematocrit (Bld) [Volume fraction] 37.5 % Normal 36.0-48.0 [facility] Comment on above: Performed By: #### C BC ####[facility] [address] [address]DrJem Alcala Hemoglobin (Bld) [Mass/Vol] 12.8 g/dL Normal 12.0-16. 0 [facility] Comment on above: Performed By: #### C BC ####[facility] [address] [id number]. Royal Alcala IG # 0.01 10e3/ul Normal 0.00-0.03 [facility] Comment on above: Performed By: #### C BC ####[facility] [address] [id number]. Royal Alcala IG % 0.2 % Normal 0.0-0.5 [facility] Comment on above: Performed By: #### C BC ####[facility] [address] [address]Dr. Royal Fredrick LYMPH # 2.2 103/ul Normal 1.2-3.8 [facility] Comment on above: Performed By: #### C BC ####[facility] [address] [address]Dr. Royal Alcala Lymphocytes/100 WBC (Bld) 38.3 % Normal 20.5-60.0 [facility] Comment on above: Performed By: #### C BC ####[facility] [address] [address]Dr. Pattiebony Alcala MANUAL DIFF REQ NO Normal [facility] Comment on above: Performed By: #### C BC ####[facility] [address] [address]Dr. Royal Alcala MCH (RBC) [Entitic mass] 29.9 pg Normal 26.7-34.0 [facility] Comment on above: Performed By: #### C BC ####[facility] [address] [address]Dr. Royal Alcala MCHC (RBC) [Mass/Vol] 34.1 g/dL Normal 29.9-35.2 [facility] Comment on above: Performed By: #### C BC ####[facility] [address] [address]Dr. Pattiebony Alcala MCV (RBC) [Entitic vol] 87.6 fL Normal 81.0-99.0 [facility] Comment on above: Performed By: #### C BC ####[facility] [address] [phone]. Royal Alcala MONO # 0.3 103/ul Normal 0.3-0.8 [facility] Comment on above: Performed By: #### C BC ####[facility] [address] [id number]. Royal Alcala Monocytes/100 WBC (Bld) 6.0 % Normal 1.7-12.0 [facility] Comment on above: Performed By: #### C BC ####[facility] [address]so[address] [phone]. Royal Alcala NEUT # 3.0 103/ul Normal 1.4-6.5 [facility] Comment on above: Performed By: #### C BC ####[facility] [address] [id number]. Royal Alcala Neutrophils/100 WBC (Bld) 52.5 % Normal 43.0-75.0 [facility] Comment on above: Performed By: #### C BC ####[facility] [address] [phone]. Royal Alcala Platelet mean volume (Bld) [Entitic vol] 9.4 fL Critically low 9.5-13.5 [facility] Comment on above: Performed By: #### C BC ####[facility] [address] [phone]. Royal Alcala PLT 209 103/ul Normal 150-450 [facility] Comment on above: Performed By: #### C BC ####[facility] [address] [phone]. Royal Alcala RBC 4.28 106/ul Normal 4.20-5.40 [facility] Comment on above: Performed By: #### C BC ####[facility] [address] [phone]. Royal Alcala WBC 5.7 103/ul Normal 4.0-11.0 [facility] Comment on above: Performed By: #### C BC ####[facility] [address] [phone]. Royal Alcala Covid-19 PCR (CVDTB)on SARS-CoV-2 (COVID-19) RNA VAISHALI+probe Ql (Unsp spec) Not detected Normal NOT DETECTED [facility] Comment on above: Result Comment: When diagnostic [...] for this test is supported by the [place] of [employer] and Human Service's declaration that [...] be used). Performed By: #### C VDTBH ####[facility] [address] [place] [address]. Royal Alcala GROUP A STREP CULTUREon S. pyogenes Ag Ql (Unsp spec) Culture Observations: Negative for Group A Streptococcus Normal [facility] Comment on above: Performed By: #### G RASTCX, SSCRN ####[facility] [address] [place] [address]. Royal [facility] INFLUENZA A AND B AGon 04-09 INFLUANEGH SEE BELOW Normal [facility] Comment on above: Result Comment: Nega tive for Flu A protein angiten. Infection due to Flu A cannot be ruled out. Flu A angiten in the sample may be below the detection limit of the test. Performed By: #### I NFLUAB ####[facility] [address] [place] [address]. [facility] INFLUBNEGH SEE BELOW Normal [facility] Comment on above: Result Comment: Nega tive for Flu B protein antigen. Infection due to Flu B cannot be ruled out. Flu B antigen in the sample may be below the detection limit of the test. Performed By: #### I NFLUAB ####[facility] [address] [address]Dr. Royal Alcala INFLUENZA A AG Negative Normal NEGATIVE SEE COMMENT [facility] Comment on above: Performed By: #### I NFLUAB ####[facility] [address] [address]Dr. Royal Alcala INFLUENZA B AG Negative Normal NEGATIVE SEE COMMENT [facility] Comment on above: Performed By: #### I NFLUAB ####[facility] Z[address] [place], [place] [address]Dr. Royal Alcala INTERNAL CONTROLS Within Normal Limits Normal Within Normal Limits [facility] Comment on above: Performed By: #### I NFLUAB ####[facility] Wed[address] [place], [place] [address]DrJem Alcala LIPASEon 04-09-2022 Lipase [Catalytic activity/Vol] 113.0 U/L Normal 73.0 -393.0 [facility] Comment on above: Performed By: #### L JOANNE RAMON, CMP #### [facility] Laboratory [address] [place] [address] Dr. Royal Alcala PROF 14(COMP METB)on 022 Albumin [Mass/Vol] 4.3 g/dL Normal 3.4-5.0 [facility] Comment on above: Performed By: #### L JOANNE RAMON, CMP #### [facility] Laboratory [address] [place] [address] Dr. Royal Alcala Albumin/Globulin [Mass ratio] 1.1 {ratio} Normal [facility] Comment on above: Performed By: #### L JOANNE RAMON, CMP #### [facility] Laboratory [address] [place] [address] Dr. Royal Alcala ALP [Catalytic activity/Vol] 91 U/L Normal 46-116 [facility] Comment on above: Performed By: #### L JOANNE RAMON, CMP #### [facility] [address] [address] [address] Royal Alcala ALT [Catalytic activity/Vol] 57 U/L Normal 14-59 [facility] Comment on above: Performed By: #### L JOANNE RAMON, CMP #### [facility] Laboratory [address] [place] [address] Dr. Royal Alcala Anion gap [Moles/Vol] 12.5 mmol/L Normal Th e [facility] Comment on above: Performed By: #### L JOANNE RAMON, CMP #### [facility] [address] [place] [address] Dr. Royal Alcala AST [Catalytic activity/Vol] 34 U/L Normal 15-37 [facility] Comment on above: Performed By: #### L JOANNE RAMON, CMP #### [facility] Laboratory [address] [place] [address] Dr. Royal Alcala Bilirubin [Mass/Vol] 0.3 mg/dL Normal 0.2-1.0 [facility] Comment on above: Performed By: #### L JOANNE RAMON, CMP #### [facility] [address] [place] [address] Dr. Royal Alcala Calcium [Mass/Vol] 9.0 mg/dL Normal 8.5-10.1 [facility] Comment on above: Performed By: #### L JOANNE RAMON, CMP #### [facility] Laboratory [address] [place] [address] Dr. Royal Alcala Chloride [Moles/Vol] 104 mmol/L Normal 98-107 [facility] Comment on above: Performed By: #### L JOANNE RAMON, CMP #### [facility] Laboratory [address] [place] [address] Dr. Royal Alcala CO2 [Moles/Vol] 25.1 mmol/L Normal 21.0-32.0 [facility] Comment on above: Performed By: #### L JOANNE RAMON, CMP #### [facility] Laboratory [address] [place] [address] Dr. Royal Alcala Creatinine [Mass/Vol] 0.70 mg/dL Normal 0.55-1.02 [facility] Comment on above: Performed By: #### L JOANNE RAMON, CMP #### [facility] Laboratory [address] [address] [address] Royal Alcala EGFR-AF CHINESE >60 Normal >=60 [facility] Comment on above: Performed By: #### L JOANNE RAMON, CMP #### [facility] [address] [address] [address] Royal Alcala EGFR-NON AF CHINESE >60 Normal >=60 [facility] Comment on above: Performed By: #### L JOANNE RAMON, CMP #### [facility] [address] [address] [address] Royal Alcala Globulin (S) [Mass/Vol] 3.9 g/dL Normal T [facility] Comment on above: Performed By: #### L JOANNE RAMON, CMP #### [facility] [address] [address] [address] Royal Alcala Glucose [Mass/Vol] 103 mg/dL Normal 74-106 [facility] Comment on above: Performed By: #### L JOANNE RAMON, CMP #### [facility] Laboratory [address] [address] [address] Royal Alcala Potassium [Moles/Vol] 3.6 mmol/L Normal 3.5-5.1 [facility] Comment on above: Performed By: #### L JOANNE RAMON, CMP #### [facility] Laboratory [address] [address] [address] Royal Alcala Protein [Mass/Vol] 8.2 g/dL Normal 6.4-8.2 [facility] Comment on above: Performed By: #### L JOANNE RAMON, CMP #### [facility] [address] [address] [address] Royal Alcala Sodium [Moles/Vol] 138 mmol/L Normal 136-145 [facility] Comment on above: Performed By: #### L JOANNE RAMON, CMP #### [facility] [address] [address] [address] Royal Alcala Urea nitrogen [Mass/Vol] 11.0 mg/dL Normal 7.0-18.0 [facility] Comment on above: Performed By: #### L JOANNE RAMON, CMP #### [facility] [address] [place], [place] [address] Dr. Royal Alcala Urea nitrogen/Creatinine [Ma ss ratio] 15.7 mg/mg Normal [facility] Comment on above: Performed By: #### L JOANNE RAMON, CMP #### [facility] [address] [place], [place] [address] Dr. Royal Alcala STREPT SCREENon 04-09-2022 STREP SCREEN A Negative Normal NEGATIVE [facility] Comment on above: Performed By: #### G RASTCX, SSCRN ####[facility] [address] [place], [place] [address]XeDr. Royal Alcala COMPLIANCE DRUG SCREENon PDF . Normal [facility] Comment on above: Performed By: #### D SDOALC ####[facility] [address] [place], [place] [address]EjJem Alcala Summary FINAL Normal [facility] Comment on above: Result Comment: TOXASSURE [...] call . Performed By: #### D SDOALC ####[facility] [address] [address]Dr. Royal Alcala CBC AUTO DIFFon 12-11-2021 BASO # 0.0 103/ul Normal 0.0-0.1 [facility] Comment on above: Performed By: #### C BC ####[facility] [address] [address]Dr. Royal Alcala Basophils/100 WBC (Bld) 0.7 % Normal 0.2-2.0 [facility] Comment on above: Performed By: #### C BC ####[facility] [address] [address]Dr. Royal Alcala EO # 0.1 103/ul Normal 0.0-0.7 [facility] Comment on above: Performed By: #### C BC ####[facility] [address] [address]Dr. Royal Alcala Eosinophils/100 WBC (Bld) 1.2 % Normal 0.9-7.0 [facility] Comment on above: Performed By: #### C BC ####[facility] [address] [place], [place] [address]Dr. Royal Alcala Erythrocyte distribution wid th (RBC) [Ratio] 12.7 % Normal 11.0-15.0 [facility] Comment on above: Performed By: #### C BC ####[facility] [address] [place], [place] [address]Dr. Pattiebony Alcala Hematocrit (Bld) [Volume fraction] 41.9 % Normal 36.0-48.0 [facility] Comment on above: Performed By: #### C BC ####[facility] [address] [place], [place] [address]Dr. Royal Alcala Hemoglobin (Bld) [Mass/Vol] 14.0 g/dL Normal 12.0-16. 0 [facility] Comment on above: Performed By: #### C BC ####[facility] [address] [place], [place] [address]Dr. Royal Alcala IG # 0.01 10e3/ul Normal 0.00-0.03 [facility] Comment on above: Performed By: #### C BC ####[facility] [address] [place], [place] [address]Dr. Pattiebony Alcala IG % 0.2 % Normal 0.0-0.5 [facility] Comment on above: Performed By: #### C BC ####[facility] [address] [place], [place] [address]Dr. Royal Alcala LYMPH # 2.0 103/ul Normal 1.2-3.8 [facility] Comment on above: Performed By: #### C BC ####[facility] [address] [place] [id number]. Royal Fredrick Lymphocytes/100 WBC (Bld) 35.1 % Normal 20.5-60.0 [facility] Comment on above: Performed By: #### C BC ####[facility] [address] [address]Dr. Pattiebony Alcala MANUAL DIFF REQ NO Normal [facility] Comment on above: Performed By: #### C BC ####[facility] [address] [address]Dr. Pattiebony Alcala MCH (RBC) [Entitic mass] 29.3 pg Normal 26.7-34.0 [facility] Comment on above: Performed By: #### C BC ####[facility] [address] [place], [place] [address]Dr. Royal Fredrick MCHC (RBC) [Mass/Vol] 33.4 g/dL Normal 29.9-35.2 [facility] Comment on above: Performed By: #### C BC ####[facility] [address] [address]Dr. Pattiebony Alcala MCV (RBC) [Entitic vol] 87.7 fL Normal 81.0-99.0 [facility] Comment on above: Performed By: #### C BC ####[facility] [address] [place], [place] [address]Dr. Royal Alcala MONO # 0.4 103/ul Normal 0.3-0.8 [facility] Comment on above: Performed By: #### C BC ####[facility] [address] [address]Dr. Royal Alcala Monocytes/100 WBC (Bld) 6.2 % Normal 1.7-12.0 [facility] Comment on above: Performed By: #### C BC ####[facility] [address] [place], [place] [address]Dr. Royal Alcala NEUT # 3.2 103/ul Normal 1.4-6.5 [facility] Comment on above: Performed By: #### C BC ####[facility] [address] [id number]. Royal Alcala Neutrophils/100 WBC (Bld) 56.6 % Normal 43.0-75.0 [facility] Comment on above: Performed By: #### C BC ####[facility] [address] [id number]. Royal Alcala Platelet mean volume (Bld) [Entitic vol] 9.2 fL Critically low 9.5-13.5 [facility] Comment on above: Performed By: #### C BC ####[facility] [address] [id number]. Royal Alcala PLT 213 103/ul Normal 150-450 [facility] Comment on above: Performed By: #### C BC ####[facility] [address] [address]Dr. Royal Alcala RBC 4.78 106/ul Normal 4.20-5.40 [facility] Comment on above: Performed By: #### C BC ####[facility] [address] [address]Dr. Royal Alcala WBC 5.6 103/ul Normal 4.0-11.0 [facility] Comment on above: Performed By: #### C BC ####[facility] [address] [address]Dr. Royal Alcala GLYCOHEMOGLOBIN A1Con 2021 ADA RECOMMENDATION SEE BELOW Normal The [facility] Comment on above: Result Comment: ADA RECOMMENDED LIMIT 4.0 - 6.0 ADA THERAPEUTIC TARGET < 7.0 ACTION SUGGESTED > 7.0 Performed By: #### A 1C #### [facility] Laboratory [address] [address] [address] Royal Alcala Glucose [Mass/Vol] 117 mg/dL Normal [facility] Comment on above: Performed By: #### A 1C #### [facility] Laboratory [address] [address] [address] Royal Alcala HbA1c (Bld) [Mass fraction] 5.7 % Normal 4.5-6.2 [facility] Comment on above: Performed By: #### A 1C #### [facility] Laboratory [address] [address] [address] Royal Alcala LIPID PROFILEon 12-11-2021 CHOL-HDL RATIO NORM SEE BELOW Normal [facility] Comment on above: Result Comment: 3.3 - 4.4 LOW RISK 4.4 - 7.1 AVERAGE RISK 7.1 - 11.0 MODERATE RISK >11.0 HIGH RISK Performed By: #### C MP, LIPID, TSH #### [facility] Laboratory [address] [address] [address] Royal Alcala Cholesterol [Mass/Vol] 168 mg/dL Normal <=200 Th [facility] Comment on above: Performed By: #### C MP, LIPID, TSH #### [facility] Laboratory [address] [place] [address] Dr. Royal Alcala Cholesterol in HDL [Mass/Vol] 34 mg/dL Critically low 40 -60 [facility] Comment on above: Performed By: #### C MP, LIPID, TSH #### [facility] Laboratory [address] [address] [address] Royal Alcala Cholesterol in LDL [Mass/Vol] 110.6 mg/dL Normal [facility] Comment on above: Performed By: #### C MP, LIPID, TSH #### [facility] Laboratory [address] [address] [address] Royal Alcala Cholesterol.total/Cholestero l in HDL [Mass ratio] 4.9 {ratio} Normal [facility] Comment on above: Performed By: #### C MP, LIPID, TSH #### [facility] [address] [address] [address] Royal Alcala HDL NORMAL > or = 60 mg/dl - LOW CARDIOVASCULAR RISK <40 mg/dl - HIGH CARDIOVASCULAR RISK Normal [facility] Comment on above: Performed By: #### C MP, LIPID, TSH #### [facility] Laboratory [address] [place] [address] Dr. Royal Alcala LDL CALC NORMAL SEE BELOW Normal [facility] Comment on above: Result Comment: <100 mg/dl OPTIMAL 100 - 129 mg/dl NEAR OR ABOVE OPTIMAL 130 - 159 mg/dl BORDERLINE HIGH 160 - 189 mg/dl HIGH >190 mg/dl VERY HIGH Performed By: #### C MP, LIPID, TSH #### [facility] Laboratory [address] [address] [address] Royal Alcala Triglyceride [Mass/Vol] 117 mg/dL Normal <=150 T [facility] Comment on above: Performed By: #### C MP, LIPID, TSH #### [facility] Laboratory [address] [address] [address] Royal Alcala VLDL CALC 23.4 mg/dL Normal [facility] Comment on above: Performed By: #### C MP, LIPID, TSH #### [facility] [address] [address] [address] Royal Alcala PROF 14(COMP METB)on 022 Albumin [Mass/Vol] 4.4 g/dL Normal 3.4-5.0 [facility] Comment on above: Performed By: #### C MP, LIPID, TSH #### [facility] [address] [place] [address] Dr. Royal Alcala Albumin/Globulin [Mass ratio] 1.0 {ratio} Normal [facility] Comment on above: Performed By: #### C MP, LIPID, TSH #### [facility] [address] [place] [address] Dr. Royal Alcala ALP [Catalytic activity/Vol] 83 U/L Normal 46-116 [facility] Comment on above: Performed By: #### C MP, LIPID, TSH #### [facility] [address] [place] [address] Dr. Royal Alcala ALT [Catalytic activity/Vol] 84 U/L Critically high 14 -59 [facility] Comment on above: Performed By: #### C MP, LIPID, TSH #### [facility] [address] [place] [address] Dr. Royal Alcala Anion gap [Moles/Vol] 13.0 mmol/L Normal [facility] Comment on above: Performed By: #### C MP, LIPID, TSH #### [facility] [address] [place] [address] Dr. Royal Alcala AST [Catalytic activity/Vol] 53 U/L Critically high 15 -37 [facility] Comment on above: Performed By: #### C MP, LIPID, TSH #### [facility] [address] [place] [address] Dr. Royal Alcala Bilirubin [Mass/Vol] 0.6 mg/dL Normal 0.2-1.0 [facility] Comment on above: Performed By: #### C MP, LIPID, TSH #### [facility] [address] [place] [address] Dr. Royal Alcala Calcium [Mass/Vol] 9.5 mg/dL Normal 8.5-10.1 [facility] Comment on above: Performed By: #### C MP, LIPID, TSH #### [facility] [address] [place] [address] Dr. Royal Alcala Chloride [Moles/Vol] 104 mmol/L Normal 98-107 [facility] Comment on above: Performed By: #### C MP, LIPID, TSH #### [facility] [address] [place] [address] Dr. Royal Alcala CO2 [Moles/Vol] 25.6 mmol/L Normal 21.0-32.0 [facility] Comment on above: Performed By: #### C MP, LIPID, TSH #### [facility] [address] [place] [address] Dr. Royal Alcala Creatinine [Mass/Vol] 0.80 mg/dL Normal 0.55-1.02 [facility] Comment on above: Performed By: #### C MP, LIPID, TSH #### [facility] [address] [place] [address] Dr. Royal Alcala EGFR-AF CHINESE >60 Normal >=60 [facility] Comment on above: Performed By: #### C MP, LIPID, TSH #### [facility] [address] [place] [address] Dr. Royal Alcala EGFR-NON AF CHINESE >60 Normal >=60 [facility] Comment on above: Performed By: #### C MP, LIPID, TSH #### [facility] [address] [place] [address] Dr. Royal Alcala Globulin (S) [Mass/Vol] 4.2 g/dL Normal [facility] Comment on above: Performed By: #### C MP, LIPID, TSH #### [facility] [address] [place] [address] Dr. Royal Alcala Glucose [Mass/Vol] 95 mg/dL Normal 74-106 [facility] Comment on above: Performed By: #### C MP, LIPID, TSH #### [facility] [address] [place] [address] Dr. Royal Alcala Potassium [Moles/Vol] 3.6 mmol/L Normal 3.5-5.1 [facility] Comment on above: Performed By: #### C MP, LIPID, TSH #### [facility] [address] [place] [address] Dr. Royal Alcala Protein [Mass/Vol] 8.6 g/dL Critically high 6.4-8.2 [facility] Comment on above: Performed By: #### C MP, LIPID, TSH #### [facility] [address] [place] [address] Dr. Royal Alcala Sodium [Moles/Vol] 139 mmol/L Normal 136-145 [facility] Comment on above: Performed By: #### C MP, LIPID, TSH #### [facility] [address] [place] [address] Dr. Royal Alcala Urea nitrogen [Mass/Vol] 11.0 mg/dL Normal 7.0-18.0 [facility] Comment on above: Performed By: #### C MP, LIPID, TSH #### [facility] Laboratory [address] [place] [address] Dr. Royal Alcala Urea nitrogen/Creatinine [Ma ss ratio] 13.8 mg/mg Normal [facility] Comment on above: Performed By: #### C MP, LIPID, TSH #### [facility] Laboratory [address] [place] [address] Dr. Royal Alcala TSHon 12-11-2021 TSH 2.262 uIU/mL Normal 0.358-3.74 0 [facility] Comment on above: Performed By: #### C MP, LIPID, TSH #### [facility] [address] [address] [address] Royal Alcala Covid-19 PCR (CVDTB)on 06-07 SARS-CoV-2 (COVID-19) RNA VAISHALI+probe Ql (Unsp spec) Detected Critically abnormal NOT DETECTED The [facility] Comment on above: Result Comment: This test is not yet approved or cleared by the [place] FDA. When there are no FDA-approved or cleared tests available, and other criteria are met, FDA can make tests available under an emergency access mechanism called an Emergency Use Authorization (EUA). The EUA for this test is supported by the [employer] of Health and Human Service's (HHS's) declaration [...] used). Performed By: #### C VDTBH #### [facility] [address] [address] [address] Royal Alcala Covid-19 PCR (CVDTB)on 05-07 SARS-CoV-2 (COVID-19) RNA VAISHALI+probe Ql (Unsp spec) Not detected Normal NOT DETECTED [facility] Comment on above: Result Comment: This test is not yet approved or cleared by the [place] FDA. When there are no FDA-approved or cleared tests available, and other criteria are met, FDA can make tests available under an emergency access mechanism called an Emergency Use Authorization (EUA). The EUA for this test is supported by the [employer] of Health and Human Service's (HHS's) declaration [...] consistent with SARS-CoV-2. Performed By: #### [facility] #### [facility] [address] [place] [address] Dr. Royal Alcala XR CHEST 2 Von [...] by: NOLVIA CASTELLANOS Date: 2021-05-21 14:19 Normal [facility] XR CHEST 2 Von 05-03-2021 XR [...] by: TANIA AUGUSTE Date: 2021-05-03 09:22 Normal [facility] Vital Signs Date Time Vital Sign Value Performing Clinician Facility 09-09-2023 08:47-0400 Body height 165.1 cm Yudith BRADY Work Phone: [facility] 09-09-2023 08:47-0400 Body mass index (BMI) [Ratio] 30.55 kg/m2 Yudith BRADY Work Phone: [facility] 09-09-2023 08:47-0400 Body temperature 97.39 [degF] Yudith BRADY Work Phone: [facility] 09-09-2023 08:47-0400 Body weight 83.28 kg Yudith [employer] Work Phone: [facility] 09-09-2023 08:47-0400 Diastolic blood pressure 80 mm[Hg] [facility] Work Phone: [facility] 09-09-2023 08:47-0400 Heart rate 84 /min Yudith Tolbert [facility] Work Phone: [facility] 09-09-2023 08:47-0400 Respiratory rate 18 /min Yudith Tolbert [facility] Work Phone: [facility] 09-09-2023 08:47-0400 SaO2% (BldA) [Mass fraction] 96 % [facility]udith Tolbert [facility] Work Phone: [facility] 09-09-2023 08:47-0400 Systolic blood pressure 128 mm[Hg] Yudith Tolbert [facility] Work Phone: [facility] Encounters Encounter Date Encounter Type Care Provider Facility Start: 09-28-2023 End: 11-06-[address] [facility] Start: 09-22-2023 End: 09-22-2023 [facility] Start: 09-09-2023 End: 09-09-2023 ambulatory [facility] Start: 09-09-2023 End: 09-09-2023 Office outpatient visit 25 minutes Yudith Tolbert [facility] Work Phone: [facility] Comment on above: Major depression sin gle episode, in partial remission (CMS- [facility]) (Primary Dx); Psychophysiological insomnia; Generalized anxiety disorder with panic attacks; Seasonal allergic rhinitis due to pollen; Hiatal hernia; Narcotic use agreement exists Start: 06-01-2023 End: 06-01-2023 ambulatory [facility] Start: 03-03-2023 End: 03-04-[address] [facility] Facility[facility] Start: 04-09-2022 End: 04-09-2022 ambulatory YUDITH TOLBERT Facility:[facility] Start: 12-16-2021 Encounter for genera l adult medical examination without abnormal findings YUDITH TOMASZ [facility] Start: 12-11-2021 End: 12-12-2021 ambulatory YUDITH [...] Start: 09-09-2023 Adult depression screening assessment Yudith Tomasz [employer] MA[employer] Work Phone: Plan of Treatment Date Care Activity Detail Author Start: 09-08-2024 Adult BMI Follow Up Plan Adult BMI Follow Up Plan [facility] Start: 09-08-2024 Adult BMI Screening Adult BMI Screening [facility] Start: 09-08-2024 Depression Screening Depression Screening [facility] Start: 09-08-2024 Tobacco Screening Tobacco Screening [facility] Start: 02-06-2024 Influenza vaccination Influenza Vaccine [facility] Start: 12-15-2023 End: 12-15-2023 Telemedicine consultation with patient 12/15/2023 11:20 AM EDT Telemedicine [facility] [address] [place] [id number] Yudith Tolbert APRN-LYNDA [address] [place] [address] [facility] Start: 02-05-2023 COVID-19 Vaccine ( season) COVID-19 Vaccine ( season) [facility] Start: 01-03-2008 DTaP,Tdap and Td Vaccines (1 - Tdap) DTaP,Tdap and Td Vaccines (1 - Tdap) [facility] Immunizations Immunization Date Immunization Notes Care Provider Faraz madrid 03-26-2020 influenza, injectabl e, quadrivalent, preservative free Yudith Tolbert [employer] Work Phone: [facility] 03-26-2020 influenza virus vaccine, unspecified formulation Yudith Tolbert [employer] Work Phone: [facility] 03-15-2019 influenza virus vaccine, unspecified formulation Yudith Tolbert [employer] Work Phone: [facility] 03-15-2019 influenza, injectabl e, quadrivalent, contains preservative Yudith Tolbert [employer] Work Phone: [facility] 03-31-2017 influenza virus vaccine, unspecified formulation Yudith Tolbert [employer] MA[employer] Work Phone: [facility] Payers Date Payer Category Payer [employer] ( and others) [facility] [id number] 2017-Present [phone] [address] [place] [address] [id number] 2017 Private Health Insurance [facility] [id number] 2003 Medicaid [place] [id number] 2003-Present [phone] [address] [place] [address] [id number] 1989 Unknown [id number]. 593 1989 Unknown [id number]. 593 1989 Unknown [id number]. 593 1989 Unknown [id number]. 593 1989 Unknown [id number] [id number]. 593 1989 Unknown [id number] [id number]. 727 1989 Unknown [id number] [id number]. 1286 1989 Unknown [id number] [id number]. 1286 1989 Unknown [id number] [id number]. 1286 1989 Unknown [id number] 1286 1959 [employer] ( and others) [id number] 1959 Unknown [id number] 1959 Unknown [id number] Social History Date Type Detail Facility Start: 06-30-2022 Tobacco smoking stat [facility] Never smoked tobacco [facility] Start: 06-30-2022 Tobacco use and exposure Smoke less tobacco non-user [facility] Start: 09-09-2023 Alcohol intake Current drinke r of alcohol (finding) [facility] Start: 06-20-2020 End: 09-09-2023 Alcohol intake [facility] Start: 12-05-2019 End: 06-20-2020 Social connection and isolation panel [facility] Do you belong to any clubs or organizations such as anabaptist groups, unions, fraternal or athletic groups, or school groups? No [facility] Are you now , , , , never or living with a partner? [facility] How often to you hav e a drink containing alcohol? Monthly or less [facility] How many standard dr inks containing alcohol do you have on a typical day? 1 or 2 [facility] How often do you hav e 6 or more drinks on 1 occasion? Never [facility] How hard is it for y ou to pay for the very basics like food, housing, medical care, and heating Somewhat hard [facility] Adolescent depressio n screening assessment 0 [facility] Do you feel stress - tense, restless, nervous, or anxious, or unable to sleep at night because your mind is troubled all the time - these days [OSQ] Very much [facility] Start: 12-05-2019 Education 12 [facility] Start: 03-22-2018 Alcohol Comment rarely [facility] Start: 1990 Sex Assigned At Not on file P [facility] History of Present illness Narrative 09-09-2023 Yudith Tolbert APRN-[employer] - 09/09/2023 9:00 AM EDT Note Date & Type Note Facility 09-09-2023 History of Present illness Narrative Images from the original note were not included. [address] [facility] [id number] SUBJECTIVE: Patient ID: Oliva Christianson is a [...] 11/2015 adhesions DIAGNOSTIC LAPAROSCOPY 2015 DIAGNOSTIC LAPAROSCOPY 2013 HYSTERECTOMY LAPAROSCOPIC CHOLECYSTECTOMY LAPAROSCOPIC OOPHORECTOMY, LYSIS OF ADHESIONS Bilateral 03/09/2017 Performed by Manas Madrid MD at [facility] LAPAROSCOPIC TUBAL LIGATION 2015 LAPAROSCOPIC VAGINAL HYSTERECTOMY 10/2015 Past Medical History: Diagnosis Date Angina pectoris ([facility]) Anxiety Dental disease gingivitis Endometriosis 01/27/2017 Hematoma of abdominal wall Insomnia Pelvic pain adhesion Pericarditis 07/2016 hospitalized at [facility] Seasonal allergies Immunization History Administered Date(s) Administered [...] Major depression single episode, in partial remission ([facility]) - venlafaxine XR (EFFEXOR-XR) 150 mg 24 [...] Rodrigues 09/09/23 1304 documented in this encounter [facility] Evaluation note Note Date & Type Note Facility Evaluation note Diagnosis Major depression single episode, in partial remission ([facility])- Primary Major depressive disorder, single episode, in partial or unspecified remission Psychophysiological insomnia Persistent disorder of initiating or maintaining sleep Generalized anxiety disorder with panic attacks Seasonal allergic rhinitis due to pollen Hiatal hernia Diaphragmatic hernia without mention of obstruction or gangrene Narcotic use agreement exists documented in this encounter [facility] Instructions Attachments Note Date & Type Note Facility Instructions The following attachments cannot be sent through Care Everywhere.Depression (Yakut)documented in this encounter [facility] Summary Purpose Family History No Family History Records FoundNo Family History Records FoundNo Family History Records FoundNo Family History Records Found Advance Directives No Advanced Directives Records FoundNo Advanced Directives Records FoundNo Advanced Directives Records FoundNo Advanced Directives Records Found Additional Source Comments INFORMATION SOURCE (unrecogn ized section and content) DATE CREATED AUTHOR 04/13/2022 Sarthak Wells [facility] DATE CREATED AUTHOR AUTHOR'S ORGANIZ ATION 03/09/2023 [facility] DATE CREATED AUTHOR AUTHOR'S ORGANIZ ATION 09/24/2023 [facility] DATE CREATED AUTHOR AUTHOR'S ORGANIZ ATION 11/07/2023 [facility] Reason for Visit (unrecogniz ed section and content) Reason Comments Follow-up 3month Care Teams (unrecognized sec tion and content) Rn Assessment Relationship Specialty Start Date End Date Yudith Tolbert, LOG MANA[employer] [address] [place] [address] PCP - General Family Medicine 05/03/18 FOR [...] BE BASED ON THE PRIMARY CLINICAL RECORDS. [employer] [facility]. provides no warranty or guarantee of the accuracy or completeness of information in this document.
--- NOTE | 2023-11-24 15:25 | ED.GENADUL1 ---
HPI HPI - General Adult General Chief complaint: Chest Pain Stated complaint: Shoulder pain, Side pain Time Seen by Provider: 11/24/23 15:15 Source: patient Mode of arrival: walk-in Limitations: no limitations History of Present Illness HPI narrative: Patient is a 33-year-old female who presents to the emergency department for the evaluation of left shoulder and left chest wall pain for the last day. Patient states pain is worse with deep breathing. She has not had any falls or injuries. She states she had allergy symptoms at the beginning of the week but these have resolved. She has no persistent coughing, hemoptysis, wheezing. No fevers or other vomiting or diarrhea. She has not had any extremity swelling, she does not take control. She has no history of DVT or PE. No medications taken prior to arrival. 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 Related Data Home Medications ?Medication ?Instructions ?Recorded ?Confirmed famotidine 20 mg tablet 20 mg PO DAILY 03/24/23 10/06/23 zolpidem 10 mg tablet 10 mg PO DAILY 03/24/23 10/06/23 cholecalciferol (vitamin D3) 125 125 mcg PO DAILY 06/08/23 10/06/23 mcg (5,000 unit) capsule pantoprazole 40 mg tablet,delayed 40 mg PO DAILY 06/08/23 10/06/23 release quetiapine 50 mg tablet 75 mg PO DAILY 06/08/23 10/06/23 ibuprofen 800 mg tablet 800 mg PO Q6H PRN pain 10/06/23 10/06/23 lorazepam 1 mg tablet 1 mg PO BID PRN anxiety 10/06/23 10/06/23 quetiapine 25 mg tablet 25 mg PO DAILY 10/06/23 10/06/23 Previous Rx's ?Medication ?Instructions ?Recorded albuterol sulfate 90 mcg/actuation 2 inh inhalation Q4H PRN shortness 06/08/23 breath activated powder of breath or wheezing #1 ea inhaler,sensor djrmxudexajjpby-lqlakmyymwtiyge-IZ 10 ml PO Q6H PRN cold symptoms 06/08/23 2 mg-30 mg-10 mg/5 mL oral syrup #200 mL (Bromfed DM) azithromycin 250 mg tablet See Rx Instructions PO .COMPLEX #6 10/06/23 (Zithromax Z-Iron) tabs ketorolac 10 mg tablet 10 mg PO TID PRN pain #10 tabs 11/24/23 methocarbamol 750 mg tablet 750 mg PO TID PRN pain #20 tabs 11/24/23 methylprednisolone 4 mg tablets in See Rx Instructions .Route 11/24/23 a dose pack (Medrol (Iron)) .COMPLEX #21 ea Allergies Allergy/AdvReac Type Severity Reaction Status Date / Time amoxicillin AdvReac Intermediate Verified 10/06/23 09:43 midazolam [From Versed] AdvReac Intermediate Verified 10/06/23 09:43 Opioid HPI Opioid Management Most Recent Opioid Data: Last Pain Scale 5 11/24/23 15:49 Last MAR Pain Assessment 11/24/23 15:49 Review of Systems ROS Constitutional Denies: fever or chills Ears, nose, mouth, and throat Denies: throat pain or nasal congestion Cardiovascular Reports: chest pain; Denies: swelling of feet/ankles Respiratory Denies: shortness of breath or cough Gastrointestinal Denies: nausea or vomiting Musculoskeletal Reports: extremity pain; Denies: back pain or neck pain Integumentary/Breast Denies: rash Neurological Denies: headache Hematologic/Lymphatic Denies: easy bruising or easy bleeding PFSH PFSH Social History Smoking status: Never smoker Exam Narrative Exam Narrative: Gen.: Awake, alert, in no distress Head: Normocephalic, atraumatic ENT: Moist mucous membranes Respiratory: No respiratory distress, lungs clear bilaterally; Pain with inspiration, diffuse mild tenderness of the left chest wall, no rashes or color change appreciated Cardio: Regular rate and rhythm Extremities: Moves extremities equally Psych: Normal mood and affect Neuro: No focal neuro deficit Skin: Warm, dry, intact Constitutional Vital Signs, click to edit/add: Last Vital Signs Temp 98.6 F 11/24/23 15:14 Pulse 65 11/24/23 17:00 Resp 13 11/24/23 17:00 BP 128/81 11/24/23 17:00 Pulse Ox 99 11/24/23 17:00 O2 Del Method Room Air 11/24/23 15:21 Course Vital Signs Vital signs: Vital Signs Temperature 98.6 F 11/24/23 15:14 Pulse Rate 82 11/24/23 15:14 Respiratory Rate 16 11/24/23 15:14 Blood Pressure 139/90 11/24/23 15:14 Pulse Oximetry 98 11/24/23 15:14 Oxygen Delivery Method Room Air 11/24/23 15:14 Temperature 98.6 F 11/24/23 15:14 Pulse Rate 65 11/24/23 17:00 Respiratory Rate 13 11/24/23 17:00 Blood Pressure 128/81 11/24/23 17:00 Pulse Oximetry 99 11/24/23 17:00 Oxygen Delivery Method Room Air 11/24/23 15:21 Medical Decision Making MDM Narrative Medical decision making narrative: Patient treated with IV Toradol and Solu-Medrol. She has stable vital signs. PERC score of 0. Labs are unremarkable with LFTs and lipase. X-rays of the chest and ribs with no evidence of acute abnormalities. Exam and history are consistent with chest wall pain/possible pleurisy. Patient discharged home on NSAIDs, muscle relaxant and steroids. Follow-up PCP and return to the ER if symptoms change or worsen SUPERVISED APC VISIT, PHYSICIAN ATTESTATION: Based on the medical record the care appears appropriate. ? Medical Records Medical records reviewed: Yes I reviewed the patient's medical records Lab Data Lab results reviewed: Yes I reviewed the patient's lab results Labs: Lab Results 11/24/23 Range/Units 15:44 WBC 7.4 (4.0-11.0) 10^3/uL RBC 4.50 (4.20-5.40) 10^6/uL Hgb 13.0 (12.0-16.0) g/dL Hct 38.7 (36.0-48.0) % MCV 86.0 (81.0-99.0) fL MCH 28.9 (26.7-34.0) pg MCHC 33.6 (29.9-35.2) g/dL RDW 13.0 (11.0-15.0) % Plt Count 233 (150-450) 10^3/uL MPV 9.3 L (9.5-13.5) fL Neut % (Auto) 52.1 (43.0-75.0) % Lymph % (Auto) 38.8 (20.5-60.0) % [place] % (Auto) 7.1 (1.7-12.0) % Eos % (Auto) 1.2 (0.9-7.0) % Baso % (Auto) 0.7 (0.2-2.0) % Neut # (Auto) 3.9 (1.4-6.5) 10^3/uL Lymph # (Auto) 2.9 (1.2-3.8) 10^3/uL [place] # (Auto) 0.5 (0.3-0.8) 10^3/uL Eos # (Auto) 0.1 (0.0-0.7) 10^3/uL Baso # (Auto) 0.1 (0.0-0.1) 10^3/uL Abs Immat Gran (auto) 0.01 (0.00-0.03) 10^3/uL Imm/Tot Granulo (auto) 0.1 (0.0-0.5) % Sodium 138 (136-145) mmol/L Potassium 3.2 L (3.5-5.1) mmol/L Chloride 103 (98-107) mmol/L Carbon Dioxide 24.9 (21.0-32.0) mmol/L Anion Gap 13.3 BUN 13.0 (7.0-18.0) mg/dL Creatinine 0.81 (0.55-1.02) mg/dL Est GFR ( Amer) >60 (>=60) Est GFR (Non-Af Amer) >60 (>=60) BUN/Creatinine Ratio 16.0 Glucose 92 (74-106) mg/dL Calcium 9.6 (8.5-10.1) mg/dL Total Bilirubin 0.5 (0.2-1.0) mg/dL AST 37 (15-37) U/L ALT 53 (14-59) U/L Alkaline Phosphatase 94 (46-116) U/L Troponin I High Sens <4.0 L (4.0-51.3) pg/mL Total Protein 8.2 (6.4-8.2) g/dL Albumin 4.2 (3.4-5.0) g/dL Globulin 4.0 g/dL Albumin/Globulin Ratio 1.0 Lipase 35.0 (16.0-77.0) U/L Imaging Data Chest x-ray: Attestation: I have reviewed the pertinent imaging results. Radiologist's impression: ITS Impressions Ribs X-Ray 11/24/23 15:35 IMPRESSION: Normal examination of the chest. No discrete rib abnormality is seen. Electronically authenticated by: SAMANTHA FIELDS Date: 11/24/2023 17:02 ECG Data Attestation: I personally reviewed and interpreted this ECG as follows: (Normal sinus rhythm at a rate of 75, no acute ST elevation or ectopy. EKG reviewed by attending physician) Discharge Plan Discharge Stand Alone Forms: Portal Instructions Chief Complaint: Chest Pain Clinical Impression: Atypical chest pain Patient Disposition: Home, Self-Care Time of Disposition Decision: 17:17 Condition: Good Prescriptions / Home Meds: New ketorolac 10 mg tablet 10 mg PO TID PRN (Reason: pain) Qty: 10 0RF methocarbamol 750 mg tablet 750 mg PO TID PRN (Reason: pain) Qty: 20 0RF methylprednisolone [Medrol (Iron)] 4 mg tablets,dose pack See Rx Instructions .ROUTE .COMPLEX Qty: 21 0RF Rx Instructions: Taper as directed No Action famotidine 20 mg tablet 20 mg PO DAILY zolpidem 10 mg tablet 10 mg PO DAILY cholecalciferol (vitamin D3) 125 mcg (5,000 unit) capsule 125 mcg PO DAILY pantoprazole 40 mg tablet,delayed release (DR/EC) 40 mg PO DAILY quetiapine 50 mg tablet 75 mg PO DAILY dffyitolqmowmoh-hywkxqjtn-SX [Bromfed DM] 2-30-10 mg/5 mL syrup 10 ml PO Q6H PRN (Reason: cold symptoms) Qty: 200 0RF albuterol sulfate 90 mcg/actuation aero powdr breath act w/sensor 2 inh inhalation Q4H PRN (Reason: shortness of breath or wheezing) Qty: 1 0RF ibuprofen 800 mg tablet 800 mg PO Q6H PRN (Reason: pain) lorazepam 1 mg tablet 1 mg PO BID PRN (Reason: anxiety) quetiapine 25 mg tablet 25 mg PO DAILY azithromycin [Zithromax Z-Iron] 250 mg tablet See Rx Instructions .ROUTE .COMPLEX Qty: 6 0RF Rx Instructions: For 250 mg dose pack: take 500 mg today (day 1), then 250 mg for 4 days (days 2-5) Print Language: [place] Instructions: Noncardiac Chest Pain (ED) Referrals: YUDITH COULTER [Primary Care Provider] - 1 week
--- NOTE | 2023-11-24 15:35 | XR_ITS ---
The [address] [address] Patient Name: QING RAMIREZ MRN: [id number] date: 1990 Sex: F Assigned Patient Location: ER Current Patient Location: ER Accession/Order Number: [id number] Exam Date: 11/24/2023 16:10 Report Date: 11/24/2023 17:02 At the request of: CHIP ALCANTARA Procedure: XR ribs LT min 3V w CXR1V EXAM: XR ribs LT min 3V w CXR1V REASON FOR EXAM: Female, 33 years, Chest pain. TECHNIQUE: A frontal view of the chest, 4 additional views of the left ribs are performed. COMPARISON: 05/21/2021. FINDINGS: Cardiac monitoring leads overlie the chest. The lungs are expanded and clear. Normal pleura. Normal size heart. Normal mediastinum and venecia. Normal visualized pulmonary arteries. Normal visualized aortic arch and descending thoracic aorta. Normal visualized thoracic spine. Normal visualized ribs, clavicles, and shoulders. Surgical clips are present in the right upper quadrant consistent with a cholecystectomy. XR/XR ribs LT min 3V w CXR1V IMPRESSION: Normal examination of the chest. No discrete rib abnormality is seen. Electronically authenticated by: SAMANTHA FIELDS Date: 11/24/2023 17:02
--- NOTE | 2023-11-24 15:35 | ECG_ITS ---
The [facility] Test Date: 2023-11-24 Pat Name: QING RAMIREZ Department: Room: - Gender: Female Service [employer]r: : 1990 Requested By: Shyann Tolbert Order Number: [id number] Reading MD: RAHEEM BUSTAMANTE Measurements Intervals [place] Rate: 75 P: 52 [place]: 172 QRS: 41 QRSD: 86 T: 33 QT: 392 QTc: 421 Interpretive Statements 1100 Sinus rhythm 9110 normal ECG Compared to ECG 10/14/2018 07:06:22 No significant changes Electronically Signed On 11-24-2023 22:35:26 EDT by RAHEEM BUSTAMANTE
[2023-11-24] MEDS: METHYLPREDNISOLONE SOD SUCC PF 125 MG/2 ML VIAL IVP (15:49)
[2023-11-24] MEDS: KETOROLAC TROMETHAMINE 30 MG/ML VIAL IVP (15:49)
[2023-11-24 15:52] LABS: Basophils Absolute Auto 0.1 10^3/uL (0.0-0.1); Basophils Percent Auto 0.7 % (0.2-2.0); Eosinophils Absolute Auto 0.1 10^3/uL (0.0-0.7); Eosinophils Percent Auto 1.2 % (0.9-7.0); Hematocrit 38.7 % (36.0-48.0); Immature Granulocytes Abs Auto 0.01 10^3/uL (0.00-0.03); Immature Granulocytes Pct Auto 0.1 % (0.0-0.5); Lymphocytes Absolute Auto 2.9 10^3/uL (1.2-3.8); Lymphocytes Percent Auto 38.8 % (20.5-60.0); Mean Corpuscular HGB Conc 33.6 g/dL (29.9-35.2); Mean Corpuscular Hemoglobin 28.9 pg (26.7-34.0); Mean Platelet Volume 9.3 fL (9.5-13.5); Monocytes Absolute Auto 0.5 10^3/uL (0.3-0.8); Monocytes Percent Auto 7.1 % (1.7-12.0); Neutrophils Absolute Auto 3.9 10^3/uL (1.4-6.5); Neutrophils Percent Auto 52.1 % (43.0-75.0); Platelet Count 233 10^3/uL (150-450); White Blood Count 7.4 10^3/uL (4.0-11.0)
[2023-11-24 16:16] LABS: Alanine Aminotransferase 53 U/L (14-59); Albumin Level 4.2 g/dL (3.4-5.0); Alkaline Phosphatase 94 U/L (46-116); Anion Gap 13.3; Aspartate Amino Transferase 37 U/L (15-37); Bilirubin Total 0.5 mg/dL (0.2-1.0); Calcium 9.6 mg/dL (8.5-10.1); Carbon Dioxide 24.9 mmol/L (21.0-32.0); Chloride 103 mmol/L (98-107); Estimated GFR (African America >60 (>=60); Estimated GFR (Non-African Ame >60 (>=60); Glucose 92 mg/dL (74-106); Potassium 3.2 mmol/L (3.5-5.1); Sodium 138 mmol/L (136-145); Total Protein 8.2 g/dL (6.4-8.2)
[2023-11-24 17:13] LABS: Troponin I High Sensitivity <4.0 pg/mL (4.0-51.3)
== END 2023-11-24 17:27 | disposition home or self-care (01) ==
PROVIDERS: Physician Assistant; Emergency Provider Emergency Medicine; PCP Nurse Practitioner
DX: R07.89 Other chest pain (principal)
CPT/HCPCS: 36415; 71101; 80053; 83690; 84484; 85025; 93005; 96374; 96375; 99285; J1885; J2919

== ENCOUNTER 2023-12-04 07:07 | Emergency (ER) | payer OTHER, SELFPAY ==
[2023-12-04 07:15] VITALS: BP 144/90; PULSE 95; TEMP 37.3; O2SAT 98; BMI 28.3
--- OUTSIDE RECORDS SUMMARY | 2023-12-04 07:19 | XMS_ITS | CCD ---
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 Name Role Phone TOMASZ YUDITH Primary Care [...] Care Unavailable Ernestina Berger Attending Unavailable Tolbert LEATHER SPLITTER-COMMERCIAL LENDING ASSISTANTTiffanyYudith J Primary Care Provid er YUDITH TOLBERT Attending Unavailable TOLBERT, YUDITH J Referring Unavailable TOLBERT, YUDITH J Primary Care Unavailable TOLBERT, YUDITH J Attending Unavailable TOLBERT, YUDIHT J Referring Unavailable TOLBERT, YUDITH J Primary Care Unavailable PEYMAN ROBERTS Attending Unavailable FRANTZ TOLBERTE Raheel Referring Unavailable TOLBERT, YUDITH J Primary Care Unavailable PEYMAN ROBERTS Referring Unavailable TOLBERT, YUDITH J Primary Care Unavailable Allergies Allergy Classification Reported Allergen(s) Allergy Type Date of Onset Reaction(s) Facility (4 sources) Amoxicillin; Translations: [amoxicillin] Drug Allergy 4 The [facility] Repository (2 sources) Midazolam; Translations: [Versed] Drug Allergy 7 [facility] Repository (1 source) Amoxicillin Drug Allergy 7 [facility] Midazolam; Translations: [MIDAZOLAM] Drug [...] (kaur sore). 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) use of opiate analgesic] 09-09-2023 Episodic [...] Onset: 05-03-2021 Episodic Other aftercare (1 source) halfway (current) use of opiate analgesic; Translations: [halfway (current) use of opiate analgesic] Onset: 06-01-2023 [...] method >1000 ng/mL Ql (U) Negative Negative^N [facility] Comment on above: AMPH/METH screening cut off = 1000 ng/mL Barbiturates Screen Ql (U) Negative N egative^N [facility] Comment on above: Barbiturates screeni ng cut off value = 200 ng/mL Benzodiazepines Ql (U) Negative Negat ami^N [facility] Comment on above: Benzodiazepines scre ening cut off value = 200 ng/mL Cocaine Ql (U) Negative Negative^N [facility] Comment on above: Cocaine screening cu t off value = 300 ng/mL Methadone Screen Ql (U) Negative Nega tive^N [facility] Comment on above: Methadone screening cut off value = 300 ng/mL. Methylenedioxymethamphetamin e Screen Ql (U) Negative Negative^N [facility] Comment on above: Ecstasy screening cu t off value = 500 ng/mL This report is intended for use in clinical monitoring or management of patients. Opiates Screen Ql (U) Negative Negati ve^N [facility] Comment on above: Opiates screening cu t off value = 300 ng/mL NOTE: This test is used for the detection of codeine, hydrocodone (>1000 ng/mL), morphine and hydromorphone (>900 ng/mL) in urine. oxyCODONE Ql (U) Negative Negative^N [facility] Comment on above: Oxycodone screening cut off value = 300 ng/mL NOTE: This test is used for the detection of oxycodone and oxymorphone in urine. Phencyclidine Screen method >25 ng/mL Ql (U) Negative Negative^N [facility] Comment on above: Phencyclidine screen ing cut off value = 25 ng/mL Tetrahydrocannabinol Screen method >50 ng/mL Ql (U) Negative Negative^N [facility] Comment on above: Cannabinoids/THC scr eening cut off value = 50 ng/mL [facility] AMYLASEon 04-09-2022 Amylase [Catalytic activity/Vol] 47 U/L Normal 25-115 [facility] Comment on above: Performed By: #### L YENNY, JOANNE, CMP #### [facility] Laboratory [address] [address] [address] Royal Alcala CBC AUTO DIFFon 04-09-2022 BASO # 0.1 103/ul Normal 0.0-0.1 [facility] Comment on above: Performed By: #### C BC ####[facility] [address] [address]DrJem Alcala Basophils/100 WBC (Bld) 0.9 % Normal 0.2-2.0 [facility] Comment on above: Performed By: #### C BC ####[facility] [address] [address]DrJem Alcala EO # 0.1 103/ul Normal 0.0-0.7 [facility] Comment on above: Performed By: #### C BC ####[facility] [address] [address]DrJem Alcala Eosinophils/100 WBC (Bld) 2.1 % Normal 0.9-7.0 [facility] Comment on above: Performed By: #### C BC ####[facility] [address] [address]DrJem Alcala Erythrocyte distribution wid th (RBC) [Ratio] 12.9 % Normal 11.0-15.0 [facility] Comment on above: Performed By: #### C BC ####[facility] [address] [address] [address]DrJem Alcala Hematocrit (Bld) [Volume fraction] 37.5 % Normal 36.0-48.0 [facility] Comment on above: Performed By: #### C BC ####[facility] [address] [address]DrJem Alcala Hemoglobin (Bld) [Mass/Vol] 12.8 g/dL Normal 12.0-16. 0 [facility] Comment on above: Performed By: #### C BC ####[facility] [address] [id number]. Royal Alcala IG # 0.01 10e3/ul Normal 0.00-0.03 [facility] Comment on above: Performed By: #### C BC ####[facility] [address] [place] [id number]. Royal Alcala IG % 0.2 % Normal 0.0-0.5 [facility] Comment on above: Performed By: #### C BC ####[facility] [address] [address]Dr. Royal Fredrick LYMPH # 2.2 103/ul Normal 1.2-3.8 [facility] Comment on above: Performed By: #### C BC ####[facility] [address] [address]Dr. Royal Alcala Lymphocytes/100 WBC (Bld) 38.3 % Normal 20.5-60.0 [facility] Comment on above: Performed By: #### C BC ####[facility] [address] [address]Dr. Pattiebony Alcala MANUAL DIFF REQ NO Normal [facility] Comment on above: Performed By: #### C BC ####[facility] [address] [address] [address]Dr. Royal Alcala MCH (RBC) [Entitic mass] 29.9 pg Normal 26.7-34.0 [facility] Comment on above: Performed By: #### C BC ####[facility] [address] [address] [address]Dr. Royal Alcala MCHC (RBC) [Mass/Vol] 34.1 g/dL Normal 29.9-35.2 [facility] Comment on above: Performed By: #### C BC ####[facility] [address] [address] [address]Dr. Pattiebony Alcala MCV (RBC) [Entitic vol] 87.6 fL Normal 81.0-99.0 [facility] Comment on above: Performed By: #### C BC ####[facility] [address] [place] [place] [id number]. Royal Alcala MONO # 0.3 103/ul Normal 0.3-0.8 [facility] Comment on above: Performed By: #### C BC ####[facility] [address] [place] [id number]. Royal Alcala Monocytes/100 WBC (Bld) 6.0 % Normal 1.7-12.0 [facility] Comment on above: Performed By: #### C BC ####[facility] [address] [place] [id number]. Royal Alcala NEUT # 3.0 103/ul Normal 1.4-6.5 [facility] Comment on above: Performed By: #### C BC ####[facility] [address] [id number]. Royal Alcala Neutrophils/100 WBC (Bld) 52.5 % Normal 43.0-75.0 [facility] Comment on above: Performed By: #### C BC ####[facility] [address] [place] [id number]. Royal Alcala Platelet mean volume (Bld) [Entitic vol] 9.4 fL Critically low 9.5-13.5 [facility] Comment on above: Performed By: #### C BC ####[facility] [address] [place] [place] [id number]. Royal Alcala PLT 209 103/ul Normal 150-450 [facility] Comment on above: Performed By: #### C BC ####[facility] [address] [place] [id number]. Royal Alcala RBC 4.28 106/ul Normal 4.20-5.40 [facility] Comment on above: Performed By: #### C BC ####[facility] [address] [place] [id number]. Royal Alcala WBC 5.7 103/ul Normal 4.0-11.0 [facility] Comment on above: Performed By: #### C BC ####[facility] [address] [place] [id number]. Royal Alcala Covid-19 PCR (CVDTB)on SARS-CoV-2 (COVID-19) RNA VAISHALI+probe Ql (Unsp spec) Not detected Normal NOT DETECTED [facility] Comment on above: Result Comment: When diagnostic [...] for this test is supported by the [place] of Health and Human Service's declaration that [...] be used). Performed By: #### C VDTBH ####[facility] [address] [place] [address]. Royal Alcala GROUP A STREP CULTUREon S. pyogenes Ag Ql (Unsp spec) Culture Observations: Negative for Group A Streptococcus Normal [facility] Comment on above: Performed By: #### G RASTCX, SSCRN ####[facility] [address] [place] [address]. [facility] INFLUENZA A AND B AGon 04-09 INFLUANEGH SEE BELOW Normal [facility] Comment on above: Result Comment: Nega tive for Flu A protein angiten. Infection due to Flu A cannot be ruled out. Flu A angiten in the sample may be below the detection limit of the test. Performed By: #### I NFLUAB ####[facility] [address] [place] [address]. [facility] INFLUBNEGH SEE BELOW Normal [facility] Comment on above: Result Comment: Nega tive for Flu B protein antigen. Infection due to Flu B cannot be ruled out. Flu B antigen in the sample may be below the detection limit of the test. Performed By: #### I NFLUAB ####[facility] [address] [address]Dr. Royal Alcala INFLUENZA A AG Negative Normal NEGATIVE SEE COMMENT [facility] Comment on above: Performed By: #### I NFLUAB ####[facility] [address] [address] [address]Dr. Royal Alcala INFLUENZA B AG Negative Normal NEGATIVE SEE COMMENT [facility] Comment on above: Performed By: #### I NFLUAB ####[facility] [address] [place], [place] [address]Dr. Royal Alcala INTERNAL CONTROLS Within Normal Limits Normal Within Normal Limits [facility] Comment on above: Performed By: #### I NFLUAB ####[facility] [address] [place], [place] [address]DrJem Alcala LIPASEon 04-09-2022 Lipase [Catalytic activity/Vol] 113.0 U/L Normal 73.0 -393.0 [facility] Comment on above: Performed By: #### L JOANNE RAMON, CMP #### [facility] Laboratory [address] [place] [address] Dr. Royal Alcala PROF 14(COMP METB)on 022 Albumin [Mass/Vol] 4.3 g/dL Normal 3.4-5.0 [facility] Comment on above: Performed By: #### L JOANNE RAMON, CMP #### [facility] [address] [place] [address] Dr. Royal Alcala Albumin/Globulin [Mass ratio] 1.1 {ratio} Normal [facility] Comment on above: Performed By: #### L JOANNE RAMON, CMP #### [facility] [address] [place] [address] Dr. Royal Alcala ALP [Catalytic activity/Vol] 91 U/L Normal 46-116 [facility] Comment on above: Performed By: #### L JOANNE RAMON, CMP #### [facility] [address] [address] [address] Royal Alcala ALT [Catalytic activity/Vol] 57 U/L Normal 14-59 [facility] Comment on above: Performed By: #### L JOANNE RAMON, CMP #### [facility] [address] [place] [address] Dr. Royal Alcala Anion gap [Moles/Vol] 12.5 mmol/L Normal Th e [facility] Comment on above: Performed By: #### L JOANNE RAMON, CMP #### [facility] [address] [place] [address] Dr. Royal Alcala AST [Catalytic activity/Vol] 34 U/L Normal 15-37 [facility] Comment on above: Performed By: #### L JOANNE RAMON, CMP #### [facility] [address] [place] [address] Dr. Royal Alcala Bilirubin [Mass/Vol] 0.3 mg/dL Normal 0.2-1.0 [facility] Comment on above: Performed By: #### L JOANNE RAMON, CMP #### [facility] [address] [place] [address] Dr. Royal Alcala Calcium [Mass/Vol] 9.0 mg/dL Normal 8.5-10.1 [facility] Comment on above: Performed By: #### L JOANNE RAMON, CMP #### [facility] [address] [place] [address] Dr. Royal Alcala Chloride [Moles/Vol] 104 mmol/L Normal 98-107 [facility] Comment on above: Performed By: #### L JOANNE RAMON, CMP #### [facility] [address] [place] [address] Dr. Royal Alcala CO2 [Moles/Vol] 25.1 mmol/L Normal 21.0-32.0 [facility] Comment on above: Performed By: #### L JOANNE RAMON, CMP #### [facility] [address] [place] [address] Dr. Royal Alcala Creatinine [Mass/Vol] 0.70 mg/dL Normal 0.55-1.02 [facility] Comment on above: Performed By: #### L JOANNE RAMON, CMP #### [facility] [address] [address] [address] Royal Alcala EGFR-AF GUATEMALAN >60 Normal >=60 [facility] Comment on above: Performed By: #### L JOANNE RAMON, CMP #### [facility] [address] [address] [address] Royal Alcala EGFR-NON AF GUATEMALAN >60 Normal >=60 [facility] Comment on above: Performed By: #### L JOANNE RAMON, CMP #### [facility] [address] [address] [address] Royal Alcala Globulin (S) [Mass/Vol] 3.9 g/dL Normal T [facility] Comment on above: Performed By: #### L JOANNE RAMON, CMP #### [facility] [address] [address] [address] Royal Alcala Glucose [Mass/Vol] 103 mg/dL Normal 74-106 [facility] Comment on above: Performed By: #### L OJANNE RAMON, CMP #### [facility] [address] [address] [address] Royal Alcala Potassium [Moles/Vol] 3.6 mmol/L Normal 3.5-5.1 [facility] Comment on above: Performed By: #### L JOANNE RAMON, CMP #### [facility] [address] [address] [address] Royal Alcala Protein [Mass/Vol] 8.2 g/dL Normal 6.4-8.2 [facility] Comment on above: Performed By: #### L JOANNE RAMON, CMP #### [facility] [address] [address] [address] Royal Alcala Sodium [Moles/Vol] 138 mmol/L Normal 136-145 [facility] Comment on above: Performed By: #### L JOANNE RAMON, CMP #### [facility] [address] [address] [address] Royal Alcala Urea nitrogen [Mass/Vol] 11.0 mg/dL Normal 7.0-18.0 [facility] Comment on above: Performed By: #### L JOANNE RAMON, CMP #### [facility] [address] [place], [place] [address] Dr. Royal Alcala Urea nitrogen/Creatinine [Ma ss ratio] 15.7 mg/mg Normal [facility] Comment on above: Performed By: #### L JOANNE RAMON, CMP #### [facility] [address] [place], [place] [address] Dr. Royal Alcala STREPT SCREENon 04-09-2022 STREP SCREEN A Negative Normal NEGATIVE [facility] Comment on above: Performed By: #### G RASTCX, SSCRN ####[facility] [address] [place], [place] [address]VwDr. Royal Alcala COMPLIANCE DRUG SCREENon PDF . Normal [facility] Comment on above: Performed By: #### D SDOALC ####[facility] [address] [place], [place] [address]TzJem Alcala Summary FINAL Normal [facility] Comment on above: Result Comment: [...] call . Performed By: #### D SDOALC ####[facility] [address] [address]Dr. Royal Alcala CBC AUTO DIFFon 12-11-2021 BASO # 0.0 103/ul Normal 0.0-0.1 [facility] Comment on above: Performed By: #### C BC ####[facility] [address] [address]Dr. Royal Alcala Basophils/100 WBC (Bld) 0.7 % Normal 0.2-2.0 [facility] Comment on above: Performed By: #### C BC ####[facility] [address] [address]Dr. Royal Alcala EO # 0.1 103/ul Normal 0.0-0.7 [facility] Comment on above: Performed By: #### C BC ####[facility] [address] [address]Dr. Royal Alcala Eosinophils/100 WBC (Bld) 1.2 % Normal 0.9-7.0 [facility] Comment on above: Performed By: #### C BC ####[facility] [address] [place], [place] [address]Dr. Royal Alcala Erythrocyte distribution wid th (RBC) [Ratio] 12.7 % Normal 11.0-15.0 [facility] Comment on above: Performed By: #### C BC ####[facility] [address] [place], [place] [address]Dr. Pattiebony Alcala Hematocrit (Bld) [Volume fraction] 41.9 % Normal 36.0-48.0 [facility] Comment on above: Performed By: #### C BC ####[facility] [address] [place], [place] [address]Dr. Royal Alcala Hemoglobin (Bld) [Mass/Vol] 14.0 g/dL Normal 12.0-16. 0 [facility] Comment on above: Performed By: #### C BC ####[facility] [address] [place], [place] [address]Dr. Royal Alcala IG # 0.01 10e3/ul Normal 0.00-0.03 [facility] Comment on above: Performed By: #### C BC ####[facility] [address] [place], [place] [address]Dr. Pattiebony Alcala IG % 0.2 % Normal 0.0-0.5 [facility] Comment on above: Performed By: #### C BC ####[facility] [address] [place], [place] [address]Dr. Royal Alcala LYMPH # 2.0 103/ul Normal 1.2-3.8 [facility] Comment on above: Performed By: #### C BC ####[facility] [address] [place] [id number]. Royal Fredrick Lymphocytes/100 WBC (Bld) 35.1 % Normal 20.5-60.0 [facility] Comment on above: Performed By: #### C BC ####[facility] [address] [address]Dr. Pattiebony Alcala MANUAL DIFF REQ NO Normal [facility] Comment on above: Performed By: #### C BC ####[facility] [address] [place] [address]Dr. Pattiebony Alcala MCH (RBC) [Entitic mass] 29.3 pg Normal 26.7-34.0 [facility] Comment on above: Performed By: #### C BC ####[facility] [address] [place], [place] [address]Dr. Royal Fredrick MCHC (RBC) [Mass/Vol] 33.4 g/dL Normal 29.9-35.2 [facility] Comment on above: Performed By: #### C BC ####[facility] [address] [address]Dr. Pattiebony Alcala MCV (RBC) [Entitic vol] 87.7 fL Normal 81.0-99.0 [facility] Comment on above: Performed By: #### C BC ####[facility] [address] [place], [place] [address]Dr. Royal Alcala MONO # 0.4 103/ul Normal 0.3-0.8 [facility] Comment on above: Performed By: #### C BC ####[facility] [address] [place] [address]Dr. Royal Alcala Monocytes/100 WBC (Bld) 6.2 % Normal 1.7-12.0 [facility] Comment on above: Performed By: #### C BC ####[facility] [address] [place], [place] [address]Dr. Royal Alcala NEUT # 3.2 103/ul Normal 1.4-6.5 [facility] Comment on above: Performed By: #### C BC ####[facility] [address] [place] [id number]. Royal Alcala Neutrophils/100 WBC (Bld) 56.6 % Normal 43.0-75.0 [facility] Comment on above: Performed By: #### C BC ####[facility] [address] [place] [id number]. Royal Alcala Platelet mean volume (Bld) [Entitic vol] 9.2 fL Critically low 9.5-13.5 [facility] Comment on above: Performed By: #### C BC ####[facility] [address] [place] [id number]. Royal Alcala PLT 213 103/ul Normal 150-450 [facility] Comment on above: Performed By: #### C BC ####[facility] [address] [address] [address]Dr. Royal Alcala RBC 4.78 106/ul Normal 4.20-5.40 [facility] Comment on above: Performed By: #### C BC ####[facility] [address] [address]Dr. Royal Alcala WBC 5.6 103/ul Normal 4.0-11.0 [facility] Comment on above: Performed By: #### C BC ####[facility] [address] [place] [address]Dr. Royal Alcala GLYCOHEMOGLOBIN A1Con 2021 ADA RECOMMENDATION SEE BELOW Normal [facility] Comment on above: Result Comment: ADA RECOMMENDED LIMIT 4.0 - 6.0 ADA THERAPEUTIC TARGET < 7.0 ACTION SUGGESTED > 7.0 Performed By: #### A 1C #### [facility] [address] [address] [address] Royal Alcala Glucose [Mass/Vol] 117 mg/dL Normal [facility] Comment on above: Performed By: #### A 1C #### [facility] [address] [address] [address] Royal Alcala HbA1c (Bld) [Mass fraction] 5.7 % Normal 4.5-6.2 [facility] Comment on above: Performed By: #### A 1C #### [facility] [address] [address] [address] Royal Alcala LIPID PROFILEon 12-11-2021 CHOL-HDL RATIO NORM SEE BELOW Normal [facility] Comment on above: Result Comment: 3.3 - 4.4 LOW RISK 4.4 - 7.1 AVERAGE RISK 7.1 - 11.0 MODERATE RISK >11.0 HIGH RISK Performed By: #### C MP, LIPID, TSH #### [facility] [address] [address] [address] Royal Alcala Cholesterol [Mass/Vol] 168 mg/dL Normal <=200 Th [facility] Comment on above: Performed By: #### C MP, LIPID, TSH #### [facility] [address] [place] [address] Dr. Royal Alcala Cholesterol in HDL [Mass/Vol] 34 mg/dL Critically low 40 -60 [facility] Comment on above: Performed By: #### C MP, LIPID, TSH #### [facility] [address] [address] [address] Royal Alcala Cholesterol in LDL [Mass/Vol] 110.6 mg/dL Normal [facility] Comment on above: Performed By: #### C MP, LIPID, TSH #### [facility] [address] [address] [address] Royal Alcala Cholesterol.total/Cholestero l in HDL [Mass ratio] 4.9 {ratio} Normal [facility] Comment on above: Performed By: #### C MP, LIPID, TSH #### [facility] [address] [address] [address] Royal Alcala HDL NORMAL > or = 60 mg/dl - LOW CARDIOVASCULAR RISK <40 mg/dl - HIGH CARDIOVASCULAR RISK Normal [facility] Comment on above: Performed By: #### C MP, LIPID, TSH #### [facility] [address] [place] [address] Dr. Royal Alcala LDL CALC NORMAL SEE BELOW Normal [facility] Comment on above: Result Comment: <100 mg/dl OPTIMAL 100 - 129 mg/dl NEAR OR ABOVE OPTIMAL 130 - 159 mg/dl BORDERLINE HIGH 160 - 189 mg/dl HIGH >190 mg/dl VERY HIGH Performed By: #### C MP, LIPID, TSH #### [facility] [address] [address] [address] Royal Alcala Triglyceride [Mass/Vol] 117 mg/dL Normal <=150 T [facility] Comment on above: Performed By: #### C MP, LIPID, TSH #### [facility] [address] [address] [address] Royal Alcala VLDL CALC 23.4 mg/dL Normal [facility] Comment on above: Performed By: #### C MP, LIPID, TSH #### [facility] [address] [address] [address] Royal Alcala PROF 14(COMP METB)on 022 Albumin [Mass/Vol] 4.4 g/dL Normal 3.4-5.0 [facility] Comment on above: Performed By: #### C MP, LIPID, TSH #### [facility] [address] [place] [address] Dr. Royal Alcala Albumin/Globulin [Mass ratio] 1.0 {ratio} Normal [facility] Comment on above: Performed By: #### C MP, LIPID, TSH #### [facility] [address] [place] [address] Dr. Royal Alcala ALP [Catalytic activity/Vol] 83 U/L Normal 46-116 [facility] Comment on above: Performed By: #### C MP, LIPID, TSH #### [facility] [address] [place] [address] Dr. Royal Alcala ALT [Catalytic activity/Vol] 84 U/L Critically high 14 -59 [facility] Comment on above: Performed By: #### C MP, LIPID, TSH #### [facility] [address] [place] [address] Dr. Royal Alcala Anion gap [Moles/Vol] 13.0 mmol/L Normal [facility] Comment on above: Performed By: #### C MP, LIPID, TSH #### [facility] [address] [place] [address] Dr. Royal Alcala AST [Catalytic activity/Vol] 53 U/L Critically high 15 -37 [facility] Comment on above: Performed By: #### C MP, LIPID, TSH #### [facility] [address] [place] [address] Dr. Royal Alcala Bilirubin [Mass/Vol] 0.6 mg/dL Normal 0.2-1.0 [facility] Comment on above: Performed By: #### C MP, LIPID, TSH #### [facility] [address] [place] [address] Dr. Royal Alcala Calcium [Mass/Vol] 9.5 mg/dL Normal 8.5-10.1 [facility] Comment on above: Performed By: #### C MP, LIPID, TSH #### [facility] [address] [place] [address] Dr. Royal Alcala Chloride [Moles/Vol] 104 mmol/L Normal 98-107 [facility] Comment on above: Performed By: #### C MP, LIPID, TSH #### [facility] [address] [place] [address] Dr. Royal Alcala CO2 [Moles/Vol] 25.6 mmol/L Normal 21.0-32.0 [facility] Comment on above: Performed By: #### C MP, LIPID, TSH #### [facility] [address] [place] [address] Dr. Royal Alcala Creatinine [Mass/Vol] 0.80 mg/dL Normal 0.55-1.02 [facility] Comment on above: Performed By: #### C MP, LIPID, TSH #### [facility] [address] [place] [address] Dr. Royal Alcala EGFR-AF GUATEMALAN >60 Normal >=60 [facility] Comment on above: Performed By: #### C MP, LIPID, TSH #### [facility] [address] [place] [address] Dr. Royal Alcala EGFR-NON AF GUATEMALAN >60 Normal >=60 [facility] Comment on above: Performed By: #### C MP, LIPID, TSH #### [facility] [address] [place] [address] Dr. Royal Alcala Globulin (S) [Mass/Vol] 4.2 g/dL Normal [facility] Comment on above: Performed By: #### C MP, LIPID, TSH #### [facility] [address] [place] [address] Dr. Royal Alcala Glucose [Mass/Vol] 95 mg/dL Normal 74-106 [facility] Comment on above: Performed By: #### C MP, LIPID, TSH #### [facility] [address] [place] [address] Dr. Royal Alcala Potassium [Moles/Vol] 3.6 mmol/L Normal 3.5-5.1 [facility] Comment on above: Performed By: #### C MP, LIPID, TSH #### [facility] [address] [place] [address] Dr. Royal Alcala Protein [Mass/Vol] 8.6 g/dL Critically high 6.4-8.2 [facility] Comment on above: Performed By: #### C MP, LIPID, TSH #### [facility] [address] [place] [address] Dr. Royal Alcala Sodium [Moles/Vol] 139 mmol/L Normal 136-145 [facility] Comment on above: Performed By: #### C MP, LIPID, TSH #### [facility] [address] [place] [address] Dr. Royal Alcala Urea nitrogen [Mass/Vol] 11.0 mg/dL Normal 7.0-18.0 [facility] Comment on above: Performed By: #### C MP, LIPID, TSH #### [facility] [address] [place] [address] Dr. Royal Alcala Urea nitrogen/Creatinine [Ma ss ratio] 13.8 mg/mg Normal [facility] Comment on above: Performed By: #### C MP, LIPID, TSH #### [facility] [address] [place] [address] Dr. Royal Alcala TSHon 12-11-2021 TSH 2.262 uIU/mL Normal 0.358-3.74 0 [facility] Comment on above: Performed By: #### C MP, LIPID, TSH #### [facility] [address] [address] [address] Royal Alcala Covid-19 PCR (CVDTB)on 06-07 SARS-CoV-2 (COVID-19) RNA VAISHALI+probe Ql (Unsp spec) Detected Critically abnormal NOT DETECTED [facility] Comment on above: Result Comment: This test is not yet approved or cleared by the [place] FDA. When there are no FDA-approved or cleared tests available, and other criteria are met, FDA can make tests available under an emergency access mechanism called an Emergency Use Authorization (EUA). The EUA for this test is supported by the Curator Of [employer] Prints of Health and Human Service's (HHS's) declaration [...] used). Performed By: #### C VDTBH #### [facility] [address] [address] [address] Royal Alcala Covid-19 PCR (CVDTB)on 05-07 SARS-CoV-2 (COVID-19) RNA VAISHALI+probe Ql (Unsp spec) Not detected Normal NOT DETECTED [facility] Comment on above: Result Comment: This test is not yet approved or cleared by the [place] FDA. When there are no FDA-approved or cleared tests available, and other criteria are met, FDA can make tests available under an emergency access mechanism called an Emergency Use Authorization (EUA). The EUA for this test is supported by the Curator Of [employer] Print[employer] of Health and Human Service's (HHS's) declaration [...] SARS-CoV-2. Performed By: #### C [facility] #### [facility] [address] [place] [address] Dr. Royal Alcala XR CHEST 2 Von [...] by: NOLVIA CASTELLANOS Date: 2021-05-21 14:19 Normal [facility] XR CHEST 2 Von 05-03-2021 [...] by: TANIA AUGUSTE Date: 2021-05-03 09:22 Normal [facility] Vital Signs Date Time Vital Sign Value Performing Clinician Facility 09-09-2023 08:47-0400 Body height 165.1 cm Yudith BRADY Work Phone: [facility] 09-09-2023 08:47-0400 Body mass index (BMI) [Ratio] 30.55 kg/m2 Yudith BRADY Work Phone: [facility] 09-09-2023 08:47-0400 Body temperature 97.39 [degF] Yudith BRADY Work Phone: [facility] 09-09-2023 08:47-0400 Body weight 83.28 kg Yudith ESTESCOMMERCIAL LENDING ASSISTANT Work Phone: [facility] 09-09-2023 08:47-0400 Diastolic blood pressure 80 mm[Hg] [facility] Work Phone: [facility] 09-09-2023 08:47-0400 Heart rate 84 /min Yudith Tolbert [facility] Work Phone: [facility] 09-09-2023 08:47-0400 Respiratory rate 18 /min Yudith Tolbert [facility] Work Phone: [facility] 09-09-2023 08:47-0400 SaO2% (BldA) [Mass fraction] 96 % [facility]ud[facility] Work Phone: [facility] 09-09-2023 08:47-0400 Systolic blood pressure 128 mm[Hg] Yudith Tolbert [facility] Work Phone: [facility] Encounters Encounter Date Encounter Type Care Provider Facility Start: 09-28-2023 End: 11-06-2023 ambulatory [facility] Start: 09-22-2023 End: 09-22-2023 [facility] Start: 09-09-2023 End: 09-09-2023 ambulatory [facility] Start: 09-09-2023 End: 09-09-2023 Office outpatient visit 25 minutes Yudith Tolbert [facility] Work Phone: [facility] Comment on above: Major depression sin gle episode, in partial remission (CMS- [facility]) (Primary Dx); Psychophysiological insomnia; Generalized anxiety disorder with panic attacks; Seasonal allergic rhinitis due to pollen; Hiatal hernia; Narcotic use agreement exists Start: 06-01-2023 End: 06-01-2023 ambulatory [facility] Start: 03-03-2023 End: 03-04-[address] [facility] Facility[place] Start: 04-09-2022 End: 04-09-2022 ambulatory YUDITH TOLBERT Facility:[facility] Start: 12-16-2021 Encounter for genera l adult medical examination without abnormal findings YUDITH TOMASZ [facility] Start: 12-11-2021 End: 12-12-2021 ambulatory [...] 09-09-2023 Adult depression screening assessment Yudith Tomasz LEATHER SPLITTER-COMMERCIAL LENDING ASSISTANT Work Phone: Plan of Treatment Date Care Activity Detail Author Start: 09-08-2024 Adult BMI Follow Up Plan Adult BMI Follow Up Plan [facility] Start: 09-08-2024 Adult BMI Screening Adult BMI Screening [facility] Start: 09-08-2024 Depression Screening Depression Screening [facility] Start: 09-08-2024 Tobacco Screening Tobacco Screening [facility] Start: 02-06-2024 Influenza vaccination Influenza Vaccine [facility] Start: 12-15-2023 End: 12-15-2023 Telemedicine consultation with patient 12/15/2023 11:20 AM EDT Telemedicine [facility] [address] [place] [id number] Yudith Tolbert APRN-LYNDA [address] [place] [address] [facility] Start: 02-05-2023 COVID-19 Vaccine ( season) COVID-19 Vaccine ( season) [facility] Start: 01-03-2008 DTaP,Tdap and Td Vaccines (1 - Tdap) DTaP,Tdap and Td Vaccines (1 - Tdap) [facility] Immunizations Immunization Date Immunization Notes Care Provider Faraz madrid 03-26-2020 influenza, injectabl e, quadrivalent, preservative free Yudith Tolbert LEATHER SPLITTER-COMMERCIAL LENDING ASSISTANT Work Phone: [facility] 03-26-2020 influenza virus vaccine, unspecified formulation Yudith Tolbert LEATHER SPLITTER-COMMERCIAL LENDING ASSISTANT Work Phone: [facility] 03-15-2019 influenza virus vaccine, unspecified formulation Yudith Tolbert LEATHER SPLITTER-COMMERCIAL LENDING ASSISTANT Work Phone: [facility] 03-15-2019 influenza, injectabl e, quadrivalent, contains preservative Yudith Tolbert LEATHER SPLITTER-COMMERCIAL LENDING ASSISTANT Work Phone: [facility] 03-31-2017 influenza virus vaccine, unspecified formulation Yudith Tolbert LEATHER SPLITTER-COMMERCIAL LENDING ASSISTANT Work Phone: [facility] Payers Date Payer Category Payer [employer] ( and others) [facility] [id number] 2017-Present [phone] [address] [place] [address] [id number] 2017 Private Health Insurance [facility] [id number] 2003 Medicaid [place] [employer] [place] [employer] [id number] 2003-Present [phone] [address] [place] [address] [id number] 1989 Unknown [id number] 593 1989 Unknown [id number]. 593 1989 Unknown [id number]. 593 1989 Unknown [id number]. 593 1989 Unknown [id number]. 593 1989 Unknown [id number]. 727 1989 Unknown [id number]. 1286 1989 Unknown [id number] [id number]. 1286 1989 Unknown [id number] [id number]. 1286 1989 Unknown [id number]. 1286 1959 [employer] ( and others) [id number] 1959 Unknown [id number] 1959 Unknown [id number] Social History Date Type Detail Facility Start: 06-30-2022 Tobacco smoking stat [facility] Never smoked tobacco [facility] Start: 06-30-2022 Tobacco use and exposure Smoke less tobacco non-user [facility] Start: 09-09-2023 Alcohol intake Current drinke r of alcohol (finding) [facility] Start: 06-20-2020 End: 09-09-2023 Alcohol intake [facility] Start: 12-05-2019 End: 06-20-2020 Social connection and isolation panel [facility] Do you belong to any clubs or organizations such as latter-day groups, unions, fraternal or athletic groups, or school groups? No [facility] Are you now , , , , never or living with a partner? [facility] How often to you hav e a drink containing alcohol? Monthly or less [facility] How many standard dr inks containing alcohol do you have on a typical day? 1 or 2 [facility] How often do you hav e 6 or more drinks on 1 occasion? Never [facility] How hard is it for y ou to pay for the very basics like food, housing, medical care, and heating Somewhat hard [facility] Adolescent depressio n screening assessment 0 [facility] Do you feel stress - tense, restless, nervous, or anxious, or unable to sleep at night because your mind is troubled all the time - these days [OSQ] Very much [facility] Start: 12-05-2019 Education 12 [facility] Start: 03-22-2018 Alcohol Comment rarely [facility] Start: 1990 Sex Assigned At Not on file [facility] History of Present illness Narrative 09-09-2023 Yudith Tolbert APRN-[facility] - 09/09/2023 9:00 AM EDT Note Date & Type Note Facility 09-09-2023 History of Present illness Narrative Images from the original note were not included. [address] [facility] [id number] SUBJECTIVE: Patient ID: Oliva Christianson is a [...] Past Medical History: Diagnosis Date Angina pectoris ([facility]) Anxiety Dental disease gingivitis Endometriosis 01/27/2017 Hematoma of abdominal wall Insomnia Pelvic pain adhesion Pericarditis 07/2016 hospitalized at [facility] Seasonal allergies Immunization History Administered Date(s) [...] Major depression single episode, in partial remission (CMS-[facility]) - venlafaxine XR (EFFEXOR-XR) 150 mg 24 [...] Rodrigues 09/09/23 1304 documented in this encounter [facility] Evaluation note Note Date & Type Note Facility Evaluation note Diagnosis Major depression single episode, in partial remission ([facility])- Primary Major depressive disorder, single episode, in partial or unspecified remission Psychophysiological insomnia Persistent disorder of initiating or maintaining sleep Generalized anxiety disorder with panic attacks Seasonal allergic rhinitis due to pollen Hiatal hernia Diaphragmatic hernia without mention of obstruction or gangrene Narcotic use agreement exists documented in this encounter [facility] Instructions Attachments Note Date & Type Note Facility Instructions The following attachments cannot be sent through Care Everywhere.Depression (Bulgarian)documented in this encounter [facility] Summary Purpose Family History No Family History Records FoundNo Family History Records FoundNo Family History Records FoundNo Family History Records Found Advance Directives No Advanced Directives Records FoundNo Advanced Directives Records FoundNo Advanced Directives Records FoundNo Advanced Directives Records Found Additional Source Comments INFORMATION SOURCE (unrecogn ized section and content) DATE CREATED AUTHOR 04/13/2022 [facility] DATE CREATED AUTHOR AUTHOR'S ORGANIZ ATION 03/09/2023 [facility] DATE CREATED AUTHOR AUTHOR'S ORGANIZ ATION 09/24/[address] [facility] DATE CREATED AUTHOR AUTHOR'S ORGANIZ ATION 11/07/2023 [facility] Reason for Visit (unrecogniz ed section and content) Reason Comments Follow-up 3month Care Teams (unrecognized sec tion and content) Die Drawing Checker Relationship Specialty Start Date End Date Yuidth Tolbert, LEATHER SPLITTER-COMMERCIAL LENDING ASSISTANT [address] [place] [address] PCP - General Family Medicine 05/03/18 FOR [...] BE BASED ON THE PRIMARY CLINICAL RECORDS. [employer] [facility]. provides no warranty or guarantee of the accuracy or completeness of information in this document.
--- NOTE | 2023-12-04 07:20 | XR_ITS ---
The [address] [address] Patient Name: QING RAMIREZ MRN: [id number] date: 1990 Sex: F Assigned Patient Location: ER Current Patient Location: ER Accession/Order Number: [id number] Exam Date: 12/04/2023 07:30 Report Date: 12/04/2023 08:45 At the request of: GIBRAN FLOR Procedure: XR chest 1V EXAM: XR chest 1V HISTORY: SOB,cough COMPARISON: Chest radiographs from 11/24/2023, 05/21/2021 FINDINGS: 1 view(s) of the chest. The lungs are clear without focal consolidation or pleural effusion. There is no pneumothorax. The cardiomediastinal silhouette is normal. XR/XR chest 1V IMPRESSION: No acute cardiopulmonary abnormality. Electronically authenticated by: LANDON PALAFOX Date: 12/04/2023 08:45
--- NOTE | 2023-12-04 07:21 | ED_ITS ---
HPI - URI/Sore Throat General Chief Complaint: Upper Respiratory Infection Stated Complaint: cough and sob Time Seen by Provider: 12/04/23 07:11 Source: patient and family Limitations: no limitations History of Present Illness HPI Narrative: 33-year-old female presents for cough and shortness of breath. She has been coughing up some yellow phlegm and had come into contact with somebody who has COVID. No known fever. She is feels tightness in her chest. She does not have a history of asthma but has used inhalers before but did not have 1. No fever or hemoptysis. She has had the symptoms for a few days. Related Data Home Medications ?Medication ?Instructions ?Recorded ?Confirmed famotidine 20 mg tablet 20 mg PO DAILY 03/24/23 12/04/23 zolpidem 10 mg tablet 10 mg PO DAILY 03/24/23 12/04/23 cholecalciferol (vitamin D3) 125 125 mcg PO DAILY 06/08/23 12/04/23 mcg (5,000 unit) capsule pantoprazole 40 mg tablet,delayed 40 mg PO DAILY 06/08/23 12/04/23 release quetiapine 50 mg tablet 75 mg PO DAILY 06/08/23 12/04/23 ibuprofen 800 mg tablet 800 mg PO Q6H PRN pain 10/06/23 12/04/23 lorazepam 1 mg tablet 1 mg PO BID PRN anxiety 10/06/23 12/04/23 quetiapine 25 mg tablet 25 mg PO DAILY 10/06/23 12/04/23 Previous Rx's ?Medication ?Instructions ?Recorded ketorolac 10 mg tablet 10 mg PO TID PRN pain #10 tabs 11/24/23 albuterol sulfate 90 mcg/actuation 2 inh inhalation Q4H PRN shortness 12/04/23 aerosol inhaler of breath or wheezing #8.5 grams benzonatate 100 mg capsule 100 mg PO TID PRN cough #20 caps 12/04/23 loratadine 5 mg-pseudoephedrine ER 1 tab PO Q12H PRN nasal congestion 12/04/23 120 mg tablet,extended #20 tabs release,12hr (Claritin-D 12 Hour) Allergies Allergy/AdvReac Type Severity Reaction Status Date / Time amoxicillin AdvReac Intermediate Verified 10/06/23 09:43 midazolam [From Versed] AdvReac Intermediate Verified 10/06/23 09:43 Review of Systems ROS Narrative A ten point review of systems is negative except as noted above. PFSH PFSH Social History Smoking status: Never smoker Exam Narrative Exam Narrative: Nurses note and vital signs reviewed and patient is not hypoxic. General: The patient appears well and in no apparent distress. Patient is resting comfortably on cart. Skin: Warm, dry, no pallor noted. There is no rash noted. Head: Normocephalic, atraumatic Eye: Normal conjunctiva, no drainage Ears, Nose, Mouth, and Throat: oral mucosa is moist. Nares patent. Cardiovascular: Regular Rate and Rhythm Respiratory: Patient is in no distress, no accessory muscle use, lungs are clear to auscultation, no wheezing, rales or rhonchi Back: non-tender GI: Soft and nontender Musculoskeletal: The patient has no evidence of calf tenderness, no pitting edema, symmetrical pulses noted bilaterally Neurological: A&O, normal speech Psychiatric: Cooperative Constitutional Vital Signs, click to edit/add: Last Vital Signs Temp 99.2 F 12/04/23 07:15 Pulse 82 12/04/23 07:35 Resp 18 12/04/23 07:15 BP 144/90 H 12/04/23 07:15 Pulse Ox 98 12/04/23 07:35 O2 Del Method Room Air 12/04/23 07:35 Course Vital Signs Vital signs: Vital Signs Temperature 99.2 F 12/04/23 07:15 Pulse Rate 95 H 12/04/23 07:15 Respiratory Rate 18 12/04/23 07:15 Blood Pressure 144/90 H 12/04/23 07:15 Pulse Oximetry 98 12/04/23 07:15 Oxygen Delivery Method Room Air 12/04/23 07:15 Temperature 99.2 F 12/04/23 07:15 Pulse Rate 82 12/04/23 07:35 Respiratory Rate 18 12/04/23 07:15 Blood Pressure 144/90 H 12/04/23 07:15 Pulse Oximetry 98 12/04/23 07:35 Oxygen Delivery Method Room Air 12/04/23 07:35 MDM - URI/Sore Throat MDM Narrative Medical decision making narrative: COVID testing and chest x-ray are negative. She will be treated symptomatically. Treatment diagnosis and follow-up were discussed with the patient. Differential Diagnosis Differential diagnosis: Likely upper respiratory infection, viral infection and other (Pneumonia, COVID) Lab Data Attestation: I reviewed the patient's lab results. Labs: Lab Results 12/04/23 Range/Units 07:25 SARS-CoV-2 Ag (CV2AG) Negative (NEGATIVE) Imaging Data Chest x-ray: Radiologist's impression: ITS Impressions Chest X-Ray 12/04/23 07:20 IMPRESSION: No acute cardiopulmonary abnormality. Electronically authenticated by: LANDON PALAFOX Date: 12/04/2023 08:45 Discharge Plan Discharge Stand Alone Forms: Portal Instructions Chief Complaint: Upper Respiratory Infection Clinical Impression: Upper respiratory infection Patient Disposition: Home, Self-Care Time of Disposition Decision: 08:54 Condition: Good Mode of Transportation: Private Vehicle Prescriptions / Home Meds: New benzonatate 100 mg capsule 100 mg PO TID PRN (Reason: cough) Qty: 20 0RF Claritin-D 12 Hour 5-120 mg tablet extended release 12 hr 1 tab PO Q12H PRN (Reason: nasal congestion) Qty: 20 0RF albuterol sulfate 90 mcg/actuation HFA aerosol inhaler 2 inh inhalation Q4H PRN (Reason: shortness of breath or wheezing) Qty: 8.5 0RF No Action famotidine 20 mg tablet 20 mg PO DAILY zolpidem 10 mg tablet 10 mg PO DAILY cholecalciferol (vitamin D3) 125 mcg (5,000 unit) capsule 125 mcg PO DAILY pantoprazole 40 mg tablet,delayed release (DR/EC) 40 mg PO DAILY quetiapine 50 mg tablet 75 mg PO DAILY ibuprofen 800 mg tablet 800 mg PO Q6H PRN (Reason: pain) lorazepam 1 mg tablet 1 mg PO BID PRN (Reason: anxiety) quetiapine 25 mg tablet 25 mg PO DAILY ketorolac 10 mg tablet 10 mg PO TID PRN (Reason: pain) Qty: 10 0RF Print Language: Maltese Instructions: Upper Respiratory Infection (ED) Referrals: YUDITH COULTER [Primary Care Provider] - 1 week
[2023-12-04] MEDS: ALBUTEROL SULFATE 2.5 MG/3 ML VIAL NEB IH (07:34)
[2023-12-04 07:35] VITALS: PULSE 82; O2SAT 98
[2023-12-04 08:04] LABS: Internal Control Within Normal Limits; SARS-CoV-2 Ag NEGATIVE (NEGATIVE)
[2023-12-04 08:56] VITALS: BP 134/85; PULSE 74; O2SAT 99
[2023-12-04] MEDS: BENZONATATE 100 MG CAPSULE 200 MG PO (09:02)
== END 2023-12-04 09:03 | disposition home or self-care (01) ==
PROVIDERS: Emergency Provider Emergency Medicine; PCP Nurse Practitioner
DX: J06.9 Acute upper respiratory infection, unspecified (principal); J45.909 Unspecified asthma, uncomplicated; Z20.822 Contact with and (suspected) exposure to COVID-19
CPT/HCPCS: 71045; 87811; 94640; 99284

== ENCOUNTER 2025-01-10 04:53 | Emergency (ER) | payer OTHER, SELFPAY ==
[2025-01-10] VITALS (17 sets, daily range): BP systolic 101–114; BP diastolic 66–86; PULSE 114; TEMP 36.9; O2SAT 52–100; BMI 25.0
--- NOTE | 2025-01-10 05:38 | ED.NAVMDI1 ---
HPI - Nausea/Vomiting/Diarrhea General Chief complaint: Nausea/Vomiting/Diarrhea Stated complaint: SORE THROAT, HEADACHE, VOMITING Time Seen by Provider: 01/10/25 05:31 Source: patient Mode of arrival: walk-in Limitations: no limitations History of Present Illness HPI Narrative: presents complaining of sore throat, recurrent vomiting and headache. States symptoms started yesterday. Past history of headaches. Believes headache from recurrent vomiting. No fever. Able to swallow Related Data Home Medications ?Medication ?Instructions ?Recorded ?Confirmed famotidine 20 mg tablet 20 mg PO DAILY 03/24/23 12/04/23 zolpidem 10 mg tablet 10 mg PO DAILY 03/24/23 12/04/23 cholecalciferol (vitamin D3) 125 125 mcg PO DAILY 06/08/23 12/04/23 mcg (5,000 unit) capsule pantoprazole 40 mg tablet,delayed 40 mg PO DAILY 06/08/23 12/04/23 release quetiapine 50 mg tablet 75 mg PO DAILY 06/08/23 12/04/23 ibuprofen 800 mg tablet 800 mg PO Q6H PRN pain 10/06/23 12/04/23 lorazepam 1 mg tablet 1 mg PO BID PRN anxiety 10/06/23 12/04/23 quetiapine 25 mg tablet 25 mg PO DAILY 10/06/23 12/04/23 Previous Rx's ?Medication ?Instructions ?Recorded ketorolac 10 mg tablet 10 mg PO TID PRN pain #10 tabs 11/24/23 albuterol sulfate 90 mcg/actuation 2 inh inhalation Q4H PRN shortness 12/04/23 aerosol inhaler of breath or wheezing #8.5 grams benzonatate 100 mg capsule 100 mg PO TID PRN cough #20 caps 12/04/23 loratadine 5 mg-pseudoephedrine ER 1 tab PO Q12H PRN nasal congestion 12/04/23 120 mg tablet,extended #20 tabs release,12hr (Claritin-D 12 Hour) ondansetron 4 mg disintegrating 4 mg PO Q6H PRN nausea and 01/10/25 tablet vomiting #20 tabs Allergies Allergy/AdvReac Type Severity Reaction Status Date / Time midazolam (From Versed) AdvReac Intermediate Unknown Verified 01/10/25 05:10 amoxicillin AdvReac Unknown Unknown Verified 01/10/25 05:10 Review of Systems ROS Status of ROS 10 or more systems reviewed and unremarkable except as noted in history and below [facility] Social History Smoking status: Never smoker Little interest or pleasure in doing things: not at all Feeling down, depressed, or hopeless: not at all Exam Constitutional Vital Signs, click to edit/add: Last Vital Signs Temp 98.4 F 01/10/25 05:10 Pulse 114 H 01/10/25 05:10 Resp 18 01/10/25 05:10 BP 107/72 01/10/25 07:30 Pulse Ox 97 01/10/25 07:50 O2 Del Method Room Air 01/10/25 05:10 Common normals: no apparent distress, average body habitus, oriented x3, no limitations, healthy appearing, alert and well nourished [place] Common normals: normocephalic and head/scalp atraumatic Eye Common normals: EOMs intact bilaterally and conjunctivae normal Respiratory Common normals: normal respiratory effort, no retractions, no use of accessory muscles and clear to auscultation bilaterally Cardio Common normals: regular rhythm, S1 normal heart sound and S2 normal heart sound Rate: tachycardic GI Common normals: Normal to inspection, nondistended, normoactive bowel sounds present, soft to palpation and non-tender Extremity Common normals: normal to inspection and full ROM Neuro Common normals: oriented x3, CN's II-XII intact bilaterally, moves all extremities and no focal motor deficits Psych Appearance: grossly normal Course Vital Signs Vital signs: Vital Signs Temperature 98.4 F 01/10/25 05:10 Pulse Rate 114 H 01/10/25 05:10 Respiratory Rate 18 01/10/25 05:10 Blood Pressure 108/81 01/10/25 05:10 Pulse Oximetry 98 01/10/25 05:10 Oxygen Delivery Method Room Air 01/10/25 05:10 Temperature 98.4 F 01/10/25 05:10 Pulse Rate 114 H 01/10/25 05:10 Respiratory Rate 18 01/10/25 05:10 Blood Pressure 107/72 01/10/25 07:30 Pulse Oximetry 97 01/10/25 07:50 Oxygen Delivery Method Room Air 01/10/25 05:10 MDM - Nausea/Vomiting/Diarrhea MDM Narrative Medical decision making narrative: patient presents complaining of sore throat, headache and recurrent vomiting. Believes headache is related to her recurrent vomiting. exam with mild erythema of posterior pharynx. No swelling or exudate. Strep screen neg. abdomen soft and nontender. given dose of Phenergan but did not help headache and help nausea some. Additional meds ordered to include zofran, toradol and benadryl care transferred at change of shift Lab Data Labs: Lab Results 01/10/25 01/10/25 01/10/25 Range/Units 05:19 05:30 05:34 WBC 9.0 (4.0-11.0) 10^3/uL RBC 4.78 (4.20-5.40) 10^6/uL Hgb 14.3 (12.0-16.0) g/dL Hct 40.6 (36.0-48.0) % MCV 84.9 (81.0-99.0) fL MCH 29.9 (26.7-34.0) pg MCHC 35.2 (29.9-35.2) g/dL RDW 12.9 (11.0-15.0) % Plt Count 200 (150-450) 10^3/uL MPV 9.4 L (9.5-13.5) fL Neut % (Auto) 87.3 H (43.0-75.0) % Lymph % (Auto) 7.8 L (20.5-60.0) % [place] % (Auto) 4.4 (1.7-12.0) % Eos % (Auto) 0.1 L (0.9-7.0) % Baso % (Auto) 0.3 (0.2-2.0) % Neut # (Auto) 7.8 H (1.4-6.5) 10^3/uL Lymph # (Auto) 0.7 L (1.2-3.8) 10^3/uL [place] # (Auto) 0.4 (0.3-0.8) 10^3/uL Eos # (Auto) 0.0 (0.0-0.7) 10^3/uL Baso # (Auto) 0.0 (0.0-0.1) 10^3/uL Abs Immat Gran (auto) 0.01 (0.00-0.03) 10^3/uL Imm/Tot Granulo (auto) 0.1 (0.0-0.5) % Sodium 140 (136-145) mmol/L Potassium 3.5 (3.5-5.1) mmol/L Chloride 104 (98-107) mmol/L Carbon Dioxide 24.1 (21.0-32.0) mmol/L Anion Gap 15.4 BUN 10.0 (7.0-18.0) mg/dL Creatinine 0.78 (0.55-1.02) mg/dL Est GFR ( Amer) >60 (>=60 mL/min/1.73m^2) Est GFR (Non-Af Amer) >60 (>=60 mL/min/1.73m^2) BUN/Creatinine Ratio 12.8 Glucose 99 (74-106) mg/dL Lactate 1.4 (0.4-2.0) mmol/L Calcium 9.9 (8.5-10.1) mg/dL Total Bilirubin 0.9 (0.2-1.0) mg/dL AST 21 (15-37) U/L ALT 28 (14-59) U/L Alkaline Phosphatase 84 (46-116) U/L Total Protein 9.0 H (6.4-8.2) g/dL Albumin 4.5 (3.4-5.0) g/dL Globulin 4.5 g/dL Albumin/Globulin Ratio 1.0 Urine Color Yellow (YELLOW) Urine Clarity Clear (CLEAR) Urine pH 6.5 (5.0-9.0) Ur Specific [place] 1.020 (1.005-1.025) Urine Protein Trace (NEG/TRACE) mg/dL Urine Glucose (UA) Negative (NEGATIVE) mg/dL Urine Ketones 15 A (NEGATIVE) mg/dL Urine Occult Blood Negative (NEGATIVE) Urine Nitrite Negative (NEGATIVE) Urine Bilirubin Negative (NEGATIVE) Urine Urobilinogen 2.0 A (0.2-1.0) EU/dL Ur Leukocyte Esterase Negative (NEGATIVE) Urine RBC None seen (0-2) #/HPF Urine WBC 0-2 A (NONE SEEN) #/HPF Ur Squamous Epith Cells Few A (NONE/RARE) #/LPF Urine Crystals None seen (None Seen) #/HPF Urine Bacteria Small A (NONE SEEN) #/HPF Urine Casts None seen (NONE SEEN) #/LPF Urine Mucus Trace A (NONE SEEN) Ur Culture Indicated? [place] [place] Streptococcus Screen Negative Discharge Plan Discharge Chief Complaint: Nausea/Vomiting/Diarrhea Clinical Impression: Constipation, Viral pharyngitis Patient Disposition: Home, Self-Care Time of Disposition Decision: 07:50 Condition: Good Mode of Transportation: Private Vehicle Prescriptions / Home Meds: New ondansetron 4 mg tablet,disintegrating 4 mg PO Q6H PRN (Reason: nausea and vomiting) Qty: 20 0RF No Action benzonatate 100 mg capsule 100 mg PO TID PRN (Reason: cough) Qty: 20 0RF Claritin-D 12 Hour 5-120 mg tablet extended release 12 hr 1 tab PO Q12H PRN (Reason: nasal congestion) Qty: 20 0RF albuterol sulfate 90 mcg/actuation HFA aerosol inhaler 2 inh inhalation Q4H PRN (Reason: shortness of breath or wheezing) Qty: 8.5 0RF famotidine 20 mg tablet 20 mg PO DAILY zolpidem 10 mg tablet 10 mg PO DAILY cholecalciferol (vitamin D3) 125 mcg (5,000 unit) capsule 125 mcg PO DAILY pantoprazole 40 mg tablet,delayed release (DR/EC) 40 mg PO DAILY quetiapine 50 mg tablet 75 mg PO DAILY ibuprofen 800 mg tablet 800 mg PO Q6H PRN (Reason: pain) lorazepam 1 mg tablet 1 mg PO BID PRN (Reason: anxiety) quetiapine 25 mg tablet 25 mg PO DAILY ketorolac 10 mg tablet 10 mg PO TID PRN (Reason: pain) Qty: 10 0RF Print Language: Tamazight Instructions: Constipation (ED), Pharyngitis (ED) Additional Instructions: [id number] MiraLAX for constipation. Referrals: Physician,Non-Staff, MD [Primary Care Provider] - 1 week Discharge Date/Time: 01/10/25 08:07
[2025-01-10 05:42] LABS: Hematocrit 40.6 % (36.0-48.0); Hemoglobin 14.3 g/dL (12.0-16.0); Immature Granulocytes Abs Auto 0.01 10^3/uL (0.00-0.03); Immature Granulocytes Pct Auto 0.1 % (0.0-0.5); Lymphocytes Absolute Auto 0.7 10^3/uL (1.2-3.8); Mean Corpuscular HGB Conc 35.2 g/dL (29.9-35.2); Mean Corpuscular Hemoglobin 29.9 pg (26.7-34.0); Mean Corpuscular Volume 84.9 fL (81.0-99.0); Platelet Count 200 10^3/uL (150-450); Red Blood Count 4.78 10^6/uL (4.20-5.40); White Blood Count 9.0 10^3/uL (4.0-11.0)
[2025-01-10 05:44] LABS: Glucose Urine UA NEGATIVE (NEGATIVE)
[2025-01-10] MEDS: PROMETHAZINE HCL 25 MG in 0.9 % SODIUM CHLORIDE 50 ML 204 MG IV (05:47)
[2025-01-10] MEDS: 0.9 % SODIUM CHLORIDE 1,000 ML 999 ML IV (05:47)
[2025-01-10 05:52] LABS: Cast Seen? NONE SEEN #/LPF (NONE SEEN); Crystals Seen? None Seen #/HPF (None Seen); Urine Culture Indicated YES-FRMC
[2025-01-10 06:04] LABS: Lactate/Lactic Acid 1.4 mmol/L (0.4-2.0)
[2025-01-10 06:10] LABS: Alanine Aminotransferase 28 U/L (14-59); Albumin Globulin Ratio 1.0; Albumin Level 4.5 g/dL (3.4-5.0); Alkaline Phosphatase 84 U/L (46-116); Anion Gap 15.4; Aspartate Amino Transferase 21 U/L (15-37); Blood Urea Nitrogen 10.0 mg/dL (7.0-18.0); Calcium 9.9 mg/dL (8.5-10.1); Carbon Dioxide 24.1 mmol/L (21.0-32.0); Chloride 104 mmol/L (98-107); Estimated GFR (African America >60 (>=60 mL/min/1.73m^2); Estimated GFR (Non-African Ame >60 (>=60 mL/min/1.73m^2); Globulin 4.5 g/dL; Glucose 99 mg/dL (74-106); Potassium 3.5 mmol/L (3.5-5.1); Sodium 140 mmol/L (136-145); Total Protein 9.0 g/dL (6.4-8.2)
--- NOTE | 2025-01-10 06:21 | XR_ITS ---
The [address] [address] Patient Name: QING RAMIREZ MRN: [id number] date: 1990 Sex: F Assigned Patient Location: ED.MAIN Current Patient Location: Accession/Order Number: [id number] Exam Date: 01/10/2025 08:59 Report Date: 01/10/2025 09:01 At the request of: ANDRES ANN MD Procedure: XR abdomen min 2V XR abdomen min 2V 01/10/2025 7:52 AM SIGNS AND SYMPTOMS: ^vomiting \S.br\ PROTOCOL: Frontal radiographs of the abdomen and pelvis COMPARISON: 03/07/2021 FINDINGS: There is evidence of prior cholecystectomy. There is a nonobstructive bowel gas pattern. No radiographic evidence of free air. There is a moderate amount of stool throughout colon. The bony structures are grossly intact. Vascular calcifications are present in the pelvis. XR/XR abdomen min 2V IMPRESSION: No bowel obstruction or free air. There is a moderate amount stool within the colon. Impression dictated by: Mandeep Ingram M.D. 01/10/2025 9:01 AM [facility]ictation [facility] Electron[facility] authenticated by: [id number] Y Date: 01/10/2025 09:01
[2025-01-10] MEDS: KETOROLAC TROMETHAMINE 30 MG/ML VIAL IVP (06:33)
[2025-01-10] MEDS: DIPHENHYDRAMINE HCL 50 MG/ML VIAL IVP (06:33)
--- NOTE | 2025-01-10 07:51 | ED.GENADUL1 ---
HPI HPI - General Adult General Chief complaint: Nausea/Vomiting/Diarrhea Stated complaint: SORE THROAT, HEADACHE, VOMITING Time Seen by Provider: 01/10/25 05:31 Source: patient Mode of arrival: walk-in Limitations: no limitations History of Present Illness HPI narrative: 35-year-old female presented to the emergency department for sore throat and was initially seen by Dr. Perera and signed out to me after discussing the case with him thoroughly. Please see his full history and physical exam. Related Data Home Medications ?Medication ?Instructions ?Recorded ?Confirmed famotidine 20 mg tablet 20 mg PO DAILY 03/24/23 12/04/23 zolpidem 10 mg tablet 10 mg PO DAILY 03/24/23 12/04/23 cholecalciferol (vitamin D3) 125 125 mcg PO DAILY 06/08/23 12/04/23 mcg (5,000 unit) capsule pantoprazole 40 mg tablet,delayed 40 mg PO DAILY 06/08/23 12/04/23 release quetiapine 50 mg tablet 75 mg PO DAILY 06/08/23 12/04/23 ibuprofen 800 mg tablet 800 mg PO Q6H PRN pain 10/06/23 12/04/23 lorazepam 1 mg tablet 1 mg PO BID PRN anxiety 10/06/23 12/04/23 quetiapine 25 mg tablet 25 mg PO DAILY 10/06/23 12/04/23 Previous Rx's ?Medication ?Instructions ?Recorded ketorolac 10 mg tablet 10 mg PO TID PRN pain #10 tabs 11/24/23 albuterol sulfate 90 mcg/actuation 2 inh inhalation Q4H PRN shortness 12/04/23 aerosol inhaler of breath or wheezing #8.5 grams benzonatate 100 mg capsule 100 mg PO TID PRN cough #20 caps 12/04/23 loratadine 5 mg-pseudoephedrine ER 1 tab PO Q12H PRN nasal congestion 12/04/23 120 mg tablet,extended #20 tabs release,12hr (Claritin-D 12 Hour) Allergies Allergy/AdvReac Type Severity Reaction Status Date / Time midazolam (From Versed) AdvReac Intermediate Unknown Verified 01/10/25 05:10 amoxicillin AdvReac Unknown Unknown Verified 01/10/25 05:10 Opioid HPI Opioid Management Most Recent Opioid Data: Last Pain Scale 5 Today, 06:33 Last MAR Pain Assessment Today, 06:33 PFSH PFSH Social History Smoking status: Never smoker Little interest or pleasure in doing things: not at all Feeling down, depressed, or hopeless: not at all Exam Constitutional Vital Signs, click to edit/add: Last Vital Signs Temp 98.4 F 01/10/25 05:10 Pulse 114 H 01/10/25 05:10 Resp 18 01/10/25 05:10 BP 101/66 01/10/25 07:00 Pulse Ox 95 01/10/25 07:00 O2 Del Method Room Air 01/10/25 05:10 Course Vital Signs Vital signs: Vital Signs Temperature 98.4 F 01/10/25 05:10 Pulse Rate 114 H 01/10/25 05:10 Respiratory Rate 18 01/10/25 05:10 Blood Pressure 108/81 01/10/25 05:10 Pulse Oximetry 98 01/10/25 05:10 Oxygen Delivery Method Room Air 01/10/25 05:10 Temperature 98.4 F 01/10/25 05:10 Pulse Rate 114 H 01/10/25 05:10 Respiratory Rate 18 01/10/25 05:10 Blood Pressure 101/66 01/10/25 07:00 Pulse Oximetry 95 01/10/25 07:00 Oxygen Delivery Method Room Air 01/10/25 05:10 Medical Decision Making MDM Narrative Medical decision making narrative: Strep test is negative blood work is nonspecific. Abdominal x-rays on my interpretation show constipation. Patient informed and she was recommended [id number] MiraLAX. There is no indication for an antibiotic. Treatment diagnosis and follow-up were discussed with the patient. Differential Diagnosis Differential Diagnosis: Strep throat, viral pharyngitis Lab Data Lab results reviewed: Yes I reviewed the patient's lab results Labs: Lab Results 01/10/25 01/10/25 01/10/25 Range/Units 05:19 05:30 05:34 WBC 9.0 (4.0-11.0) 10^3/uL RBC 4.78 (4.20-5.40) 10^6/uL Hgb 14.3 (12.0-16.0) g/dL Hct 40.6 (36.0-48.0) % MCV 84.9 (81.0-99.0) fL MCH 29.9 (26.7-34.0) pg MCHC 35.2 (29.9-35.2) g/dL RDW 12.9 (11.0-15.0) % Plt Count 200 (150-450) 10^3/uL MPV 9.4 L (9.5-13.5) fL Neut % (Auto) 87.3 H (43.0-75.0) % Lymph % (Auto) 7.8 L (20.5-60.0) % [place] % (Auto) 4.4 (1.7-12.0) % Eos % (Auto) 0.1 L (0.9-7.0) % Baso % (Auto) 0.3 (0.2-2.0) % Neut # (Auto) 7.8 H (1.4-6.5) 10^3/uL Lymph # (Auto) 0.7 L (1.2-3.8) 10^3/uL [place] # (Auto) 0.4 (0.3-0.8) 10^3/uL Eos # (Auto) 0.0 (0.0-0.7) 10^3/uL Baso # (Auto) 0.0 (0.0-0.1) 10^3/uL Abs Immat Gran (auto) 0.01 (0.00-0.03) 10^3/uL Imm/Tot Granulo (auto) 0.1 (0.0-0.5) % Sodium 140 (136-145) mmol/L Potassium 3.5 (3.5-5.1) mmol/L Chloride 104 (98-107) mmol/L Carbon Dioxide 24.1 (21.0-32.0) mmol/L Anion Gap 15.4 BUN 10.0 (7.0-18.0) mg/dL Creatinine 0.78 (0.55-1.02) mg/dL Est GFR ( Amer) >60 (>=60 mL/min/1.73m^2) Est GFR (Non-Af Amer) >60 (>=60 mL/min/1.73m^2) BUN/Creatinine Ratio 12.8 Glucose 99 (74-106) mg/dL Lactate 1.4 (0.4-2.0) mmol/L Calcium 9.9 (8.5-10.1) mg/dL Total Bilirubin 0.9 (0.2-1.0) mg/dL AST 21 (15-37) U/L ALT 28 (14-59) U/L Alkaline Phosphatase 84 (46-116) U/L Total Protein 9.0 H (6.4-8.2) g/dL Albumin 4.5 (3.4-5.0) g/dL Globulin 4.5 g/dL Albumin/Globulin Ratio 1.0 Urine Color Yellow (YELLOW) Urine Clarity Clear (CLEAR) Urine pH 6.5 (5.0-9.0) Ur Specific [place] 1.020 (1.005-1.025) Urine Protein Trace (NEG/TRACE) mg/dL Urine Glucose (UA) Negative (NEGATIVE) mg/dL Urine Ketones 15 A (NEGATIVE) mg/dL Urine Occult Blood Negative (NEGATIVE) Urine Nitrite Negative (NEGATIVE) Urine Bilirubin Negative (NEGATIVE) Urine Urobilinogen 2.0 A (0.2-1.0) EU/dL Ur Leukocyte Esterase Negative (NEGATIVE) Urine RBC None seen (0-2) #/HPF Urine WBC 0-2 A (NONE SEEN) #/HPF Ur Squamous Epith Cells Few A (NONE/RARE) #/LPF Urine Crystals None seen (None Seen) #/HPF Urine Bacteria Small A (NONE SEEN) #/HPF Urine Casts None seen (NONE SEEN) #/LPF Urine Mucus Trace A (NONE SEEN) Ur Culture Indicated? Yes-[facility] [place] Streptococcus Screen Negative Imaging Data Abdominal x-ray: My impression: Constipation Discharge Plan Discharge Chief Complaint: Nausea/Vomiting/Diarrhea Clinical Impression: Constipation, Viral pharyngitis Patient Disposition: Home, Self-Care Time of Disposition Decision: 07:50 Condition: Good Mode of Transportation: Private Vehicle Prescriptions / Home Meds: No Action benzonatate 100 mg capsule 100 mg PO TID PRN (Reason: cough) Qty: 20 0RF Claritin-D 12 Hour 5-120 mg tablet extended release 12 hr 1 tab PO Q12H PRN (Reason: nasal congestion) Qty: 20 0RF albuterol sulfate 90 mcg/actuation HFA aerosol inhaler 2 inh inhalation Q4H PRN (Reason: shortness of breath or wheezing) Qty: 8.5 0RF famotidine 20 mg tablet 20 mg PO DAILY zolpidem 10 mg tablet 10 mg PO DAILY cholecalciferol (vitamin D3) 125 mcg (5,000 unit) capsule 125 mcg PO DAILY pantoprazole 40 mg tablet,delayed release (DR/EC) 40 mg PO DAILY quetiapine 50 mg tablet 75 mg PO DAILY ibuprofen 800 mg tablet 800 mg PO Q6H PRN (Reason: pain) lorazepam 1 mg tablet 1 mg PO BID PRN (Reason: anxiety) quetiapine 25 mg tablet 25 mg PO DAILY ketorolac 10 mg tablet 10 mg PO TID PRN (Reason: pain) Qty: 10 0RF Print Language: Romansh Instructions: Constipation (ED), Pharyngitis (ED) Additional Instructions: [id number] MiraLAX for constipation. Referrals: Physician,Non-Staff, MD [Primary Care Provider] - 1 week
== END 2025-01-10 08:07 | disposition home or self-care (01) ==
PROVIDERS: Internal Medicine; Emergency Provider Emergency Medicine
DX: K59.00 Constipation, unspecified (principal); J02.9 Acute pharyngitis, unspecified
CPT/HCPCS: 36415; 74019; 80053; 81001; 83605; 85025; 87070; 87086; 87880; 96361; 96365; 96375; 96376; 99285; J1200; J1885; J2405; J2550